=== PATIENT | female | born 1985 | race Caucasian/White ===

== ENCOUNTER 2020-08-12 17:51 | Outpatient (REF) | payer OTHER, SELFPAY | END 2020-08-12 17:52 | disposition home or self-care (01) | LOC: HO.LAB 17:51 | PROVIDERS: PCP Nurse Practitioner Family; Visit Provider Internal Medicine | DX: Z20.828 Contact with and (suspected) exposure to other viral communicable diseases (principal) | CPT/HCPCS: 87635 ==

== ENCOUNTER 2020-10-14 09:23 | Outpatient (REF) | payer OTHER, SELFPAY ==
[2020-10-16 14:57] LABS: C. trachomatis RNA TMA NOT DETECTED (NOT DETECTED); N. gonorrhoeae RNA TMA NOT DETECTED (NOT DETECTED)
[2020-10-21 20:12] LABS: HPV 16 RNA NOT DETECTED (NOT DETECTED); HPV mRNA E6/E7 rflx Detected (Not Detected)
== END 2020-10-14 09:24 | disposition home or self-care (01) ==
LOC: HO.LAB 09:23
PROVIDERS: PCP Nurse Practitioner Family; Visit Provider Obstetrics & Gynecology
DX: Z12.4 Encounter for screening for malignant neoplasm of cervix (principal)
CPT/HCPCS: 87491; 87591; 87624; 87625; 88141; 88142

== ENCOUNTER → 2020-11-12 08:34 | Outpatient (BNVA) | payer OTHER, SELFPAY | PROVIDERS: Visit Provider Advanced Practice Midwife | DX: Z30.433 Encounter for removal and reinsertion of intrauterine contraceptive device (principal) | CPT/HCPCS: 58300; 58301; 81025 ==

== ENCOUNTER 2021-01-03 21:21 | Emergency (ER) | payer OTHER, SELFPAY ==
[2021-01-03 21:24] VITALS: BP 151/87; PULSE 123; RESP 18; TEMP 36.8; O2SAT 100; BMI 27.0
[2021-01-03 22:18] VITALS: BP 124/75; PULSE 120; RESP 16; TEMP 38.7; O2SAT 98
[2021-01-03] MEDS: Ibuprofen 600 MG TABLET PO (22:32)
[2021-01-03] MEDS: Acetaminophen 325 MG TABLET 975 MG PO (22:44)
[2021-01-03 23:08] LABS: Glucose Urine UA NEG (NEG); Leukocyte Esterase Urine NEG (NEG); Nitrite Urine NEG (NEG); PH 8.5 (5.0-8.0); Specific Gravity - Urine 1.015 (1.005-1.025); Urine Blood 1+ (NEG); Urine Ketones NEG (NEG); Urine Pregnancy NEGATIVE (NEGATIVE); Urine Protein NEG (NEG-TRACE)
[2021-01-03 23:09] LABS: UPreg QC Valid YES
[2021-01-03 23:10] LABS: Appearance Urine CLEAR; Color Urine YELLOW
--- NOTE | 2021-01-03 23:23 | ED_ITS ---
HPI - Dental/Oral General Chief complaint: Dental/Oral Stated complaint: Dental pain Time Seen by Provider: 01/03/21 22:39 Source: patient Mode of arrival: ambulatory History of Present Illness HPI Narrative: This is a 35-year-old female who underwent a root canal on Sunday of last week and then developed pain and increased swelling of her gum line on Sunday and was started on amoxicillin by the dentist. She called in this morning telling them that it was not getting any better and they told her take an additional dose of amoxicillin and that they would see her in the morning. Patient presents this evening with fevers, chills and worsening pain. Related Data Previous Rx's Medication Instructions Recorded sertraline 100 mg tablet 200 mg PO DAILY #180 tab 09/21/20 bupropion HCl 150 mg tablet,12 hr 150 mg PO BID #180 tab 10/21/20 sustained-release buspirone 15 mg tablet 15 mg PO BID #180 tab 10/21/20 Allergies Allergy/AdvReac Type Severity Reaction Status Date / Time No Known Allergies Allergy Verified 01/03/21 21:24 Review of Systems Review of Systems: Pertinent positives and negatives as stated in HPI 10 point review systems is otherwise negative. [facility] Past Medical History Source: nursing notes reviewed Medical History Anxiety Depression History of back problems History of COVID-19 History of kidney stones History of UTI Migraine Mild scoliosis Surgical History No pertinent past surgical history Family History Family History Father HTN (hypertension) Mother No problems noted. Brother No problems noted. Brother No problems noted. Son No problems noted. Son No problems noted. Sister No problems noted. Daughter No problems noted. Social History Social History Alcohol intake: never Smoking Status: Current every day smoker Advance Directives: No Advance Directives Information Provided: No Sexual orientation: Straight/Heterosexual Gender identity: female Physical Exam Vital Signs: Vital Signs: Last Vital Signs Temp 99.7 F 01/03/21 23:26 Pulse 104 H 01/03/21 23:26 Resp 14 01/03/21 23:26 BP 121/68 01/03/21 23:26 Pulse Ox 97 01/03/21 23:26 Body Mass Index 27.0 VITAL SIGNS: Reviewed. GENERAL: Well developed, well nourished, in no acute distress. HEAD: Normocephalic/atraumatic, EYES: PERRLA, EOMI intact without pain, no nystagmus/pallor/icterus noted EARS: Ext canals without abnormality, TMs non-bulging and non-erythematous NOSE: Nares patent bilateral OROPHARYNX: Swelling left upper gum line noted with dental loreto and posterior pharynx with exudates noted NECK: Supple, no adenopathy LUNGS: Normal breath sounds. No adventitious sounds or accessory muscle use. SpO2<100> CARDIOVASCULAR: Regular rate and rhythm without noted murmurs ABDOMEN: Soft, non-tender, non-distended with bowel sounds. NEUROLOGIC: Alert and oriented x 4. Course Course Course Narrative: This is a 35-year-old female with history and clinical presentation consistent with inadequate coverage with the amoxicillin and will be switched over to Augmentin as well as having received antipyretics Tylenol/Motrin and will also receive a single dose of Diflucan for reported yeast infection. Rapid strep reviewed and negative. Patient will be discharged in stable condition for follow-up with her dentist in the morning. MDM - Dental/Oral Lab Data Labs: Lab Results 01/03/21 01/03/21 Range/Units 22:56 22:56 Urine Color YELLOW Urine Appearance CLEAR Urine pH 8.5 H (5.0-8.0) Ur Specific [place] 1.015 (1.005-1.025) Urine Protein NEG (NEG-TRACE) MG/DL Urine Glucose (UA) NEG (NEG) MG/DL Urine Ketones NEG (NEG) MG/DL Urine Blood 1+ H (NEG) Urine Nitrite NEG (NEG) Ur Leukocyte Esterase NEG (NEG) Urine RBC 1-4 (0) /HPF Urine WBC 0-2 (0-4) /HPF Ur Squamous Epith Cells 1+ /LPF Urine Bacteria TRACE /LPF Urine Yeast TRACE /HPF Urine Test NEGATIVE (NEGATIVE) Discharge Plan Discharge Clinical Impression: Dental infection Patient Disposition: Home, Self-Care Additional Instructions: FOR PAIN 1. Tylenol 1000 mg, orally, every 6 hours as needed for pain control or temperatures greater than 100.4. Do not exceed 4000 mg within 24 hours. 2. Ibuprofen 400 mg, orally with milk or food, every 6 hours as needed for pain control or temperatures greater than 100.4. You may take this medication with the Tylenol as well. 3. Recommend utilizing ice and/or [id number] Anbesol for additional symptom relief. 4. Follow-up with your dentist in the morning as scheduled. Do not hesitate to return to the emergency department should you develop any acute worsening of your symptoms to include difficulty breathing, difficulty swallowing. Prescriptions: No Action sertraline 100 mg tablet 200 mg PO DAILY Qty: 180 RF: 0 buspirone 15 mg tablet 15 mg PO BID Qty: 180 RF: 0 bupropion HCl 150 mg tablet sustained-release 12 hr 150 mg PO BID Qty: 180 RF: 0 Referrals: Alfonso Mcmahon, IT SECURITY CONSULTANT-BC [Primary Care Provider] - 2 days (Re-evaluation outpatient management of dental infection.)
[2021-01-03 23:26] VITALS: BP 121/68; PULSE 104; RESP 14; TEMP 37.6; O2SAT 97
[2021-01-03 23:27] LABS: Bacteria Urine TRACE /LPF; Squamous Epithelial Cell Urine 1+ /LPF; WBC Urine 0-2 /HPF (0-4)
[2021-01-04] MEDS: Amoxicillin/Potassium Clav 875 MG TABLET PO (00:01)
[2021-01-04] MEDS: Fluconazole 150 MG TABLET PO (00:01)
== END 2021-01-04 00:45 | disposition home or self-care (01) ==
PROVIDERS: Emergency Provider Student in an Organized Health Care Education/Training Program; PCP Nurse Practitioner Family
DX: K04.7 Periapical abscess without sinus (principal); F17.200 Nicotine dependence, unspecified, uncomplicated; Z86.16 Personal history of COVID-19; Z87.442 Personal history of urinary calculi; Z87.440 Personal history of urinary (tract) infections; F41.9 Anxiety disorder, unspecified; Z79.899 Other long term (current) drug therapy
CPT/HCPCS: 81001; 81025; 87071; 87880; 99283; 99284

== ENCOUNTER 2021-05-14 14:30 | Emergency (ER) | payer OTHER, SELFPAY ==
[2021-05-14 14:33] VITALS: BP 112/65; BP 130/80; PULSE 77; PULSE 90; RESP 18; TEMP 36.6; O2SAT 97; BMI 27.0
--- NOTE | 2021-05-14 14:58 | ED_ITS ---
HPI - Syncope General Chief Complaint: Syncope Stated Complaint: SYNCOPE Time Seen by Provider: 05/14/21 14:57 Source: patient Mode of arrival: ambulatory Limitations: no limitations History of Present Illness HPI narrative: Patient was standing up talking when she passed out. patient could hear people around her but felt like she was in a dream. Patient felt nauseated had not eaten anything all day. Woke up late. MD complaint: loss of consciousness and felt faint -: second(s) Prodromal symptoms: lightheaded and nausea/vomiting Witnessed: Yes - by Bystander Injuries sustained associated with event: none Current symptoms: none Related Data Previous Rx's Medication Instructions Recorded amoxicillin 875 mg-potassium 1 tab PO BID #20 tab 02/18/21 clavulanate 125 mg tablet buspirone 15 mg tablet 15 mg PO BID #180 tab 02/21/21 omeprazole 20 mg capsule,delayed 20 mg PO DAILY #30 cap 02/26/21 release sertraline 100 mg tablet 100 mg PO DAILY 30 Days #30 tab 05/04/21 Allergies Allergy/AdvReac Type Severity Reaction Status Date / Time No Known Allergies Allergy Verified 02/26/21 10:57 Review of Systems 2 Constitutional: Constitutional: Reports no additional constitutional complaints Eyes: Eyes: Reports no additional eye complaints ENT: Denies dizziness Cardiovascular: Cardiovascular: Reports no additional cardiovascular complaints Respiratory: Respiratory: Reports as per HPI Gastrointestinal: Gastrointestinal: Reports no additional gastrointestinal complaints Genitourinary: Genitourinary: Reports no additional female genitourinary complaints Musculoskeletal: Musculoskeletal: Reports no additional musculoskeletal complaints Integumentary/Breasts: Skin/Breast: Denies rash Neurologic: Reports system reviewed and no additional complaints, except as documented, Denies dizziness and Denies Sensory deficit (Neuro) Psychiatric: Psychiatric: Denies anxiety [facility] Past Medical History Medical History Anxiety Depression History of back problems History of COVID-19 History of kidney stones History of UTI Migraine Mild scoliosis Surgical History No pertinent past surgical history Family History Family History Father HTN (hypertension) Mother No problems noted. Brother No problems noted. Brother No problems noted. Son No problems noted. Son No problems noted. Sister No problems noted. Daughter No problems noted. Social History Social History Alcohol intake: never Advance Directives: No Advance Directives Information Provided: Yes Patient : No Sexual orientation: Straight/Heterosexual Gender identity: female Physical Exam Vital Signs: Vital Signs: Last Vital Signs Temp 98 F 05/14/21 14:33 Pulse 79 05/14/21 15:30 Resp 18 05/14/21 14:33 BP 123/80 05/14/21 15:30 Pulse Ox 97 05/14/21 14:33 Body Mass Index 27.0 Const: General: healthy appearing Nutritional Appearance: average body habitus Orientation/consciousness: oriented to person and patient oriented x3 Limitations: no limitations HENMT: Head: Yes normal to inspection Ears: external ears normal General nose exam: Normal external nose present Mouth: Normal oral and palatal mucosa present and oropharynx normal Throat: Yes posterior oropharynx normal Eyes: General: appearance normal, both eyes and all related structures Neck: Other: supple Neck: Yes normal visual inspection Chest: Chest palpation & inspection: normal inspection of the chest Resp: Auscultation: clear to auscultation bilaterally Cardio: Jugular venous distension: no JVD Rate: regular rate Rhythm: regular rhythm Heart sounds: S1 normal heart sound present and S2 normal heart sound present GI: Inspection: Yes normal to inspection Palpation (GI): Soft to palpation, nontender and No hepatosplenomegaly present Auscultation: normal bowel sounds : General: Yes no CVA tenderness Back/Spine/Pelvis: Back: no CVA tenderness Skin: General skin exam: no rashes or lesions noted Neuro: General: oriented to person and patient oriented x3 Cranial nerves: Yes CN's II-XII intact bilaterally Motor exam (neuro): 5/5 motor strength present throughout Sensory Exam: No Sensory deficit (Neuro) Extrem: General: Yes normal to inspection Psych: Appearance: grossly normal Course Reevaluation(s) Reevaluation #1: patient looks well, labs normal except for leukocytosis, no fever, no source of infection. EKG normal, no explanation for syncope although possible hypoglycemia and vagal are still a possibility Time: 16:46 MDM - Syncope Lab Data Result diagrams: 05/14/21 15:24 07/24/21 15:24 Labs: Lab Results 05/14/21 05/14/21 05/14/21 Range/Units 15:24 15:24 16:30 WBC 17.0 H (4.8-10.8) X10*3/uL RBC 4.12 L (4.20-5.50) X10*6/uL Hgb 13.2 (12.0-16.0) g/dl Hct 38.7 (37-47) % MCV 93.9 (80-98) fL MCH 32.0 (27.0-33.0) pg MCHC 34.1 (31.0-35.0) g/dl RDW 11.5 (11.0-16.0) % Plt Count 340 (160-400) X10*3/uL MPV 9.0 L (9.4-12.3) fL Immature Gran % (Auto) 0.8 H (0.0-0.4) % Neut % (Auto) 83.8 H (45-73) % Lymph % (Auto) 9.5 L (20-40) % [place] % (Auto) 4.5 (2-11) % Eos % (Auto) 1.0 (0-4) % Baso % (Auto) 0.4 (0-2) % Lymph # (Auto) 1.6 (1.2-4.9) X10*3/uL [place] # (Auto) 0.8 (0.1-1.2) X10*3/uL Eos # (Auto) 0.2 (0.0-0.4) X10*3/uL Baso # (Auto) 0.1 (0.0-0.2) X10*3/uL Abs Immat Gran (auto) 0.13 H (0.00-0.03) X10*3/uL Absolute Neuts (auto) 14.2 H (2.0-8.3) X10*3/uL Absolute Nucleated RBC 0.000 (0.0-0.012) X10*3/uL Nucleated RBC % (auto) 0.0 (0.0-0.2) /100WBC Sodium 140 (135-145) mmol/L Potassium 3.9 (3.3-5.1) mmol/L Chloride 106 (96-108) mmol/L Carbon Dioxide 24 (22-29) mmol/L Anion Gap 14 (12-20) BUN 11 (9-16) mg/dL Creatinine 0.87 (0.5-1.4) mg/dL Estim Creat Clear Calc 77.0 Estimated GFR > 60 Random Glucose 95 (60-115) mg/dL Calcium 9.1 (8.4-10.2) mg/dL Urine Color YELLOW Urine Appearance CLEAR Urine pH 6.5 (5.0-8.0) Ur Specific [place] 1.010 (1.005-1.025) Urine Protein NEG (NEG-TRACE) MG/DL Urine Glucose (UA) NEG (NEG) MG/DL Urine Ketones NEG (NEG) MG/DL Urine Blood NEG (NEG) Urine Nitrite NEG (NEG) Ur Leukocyte Esterase NEG (NEG) Urine Test (NEGATIVE) 05/14/21 Range/Units 16:30 WBC (4.8-10.8) X10*3/uL RBC (4.20-5.50) X10*6/uL Hgb (12.0-16.0) g/dl Hct (37-47) % MCV (80-98) fL MCH (27.0-33.0) pg MCHC (31.0-35.0) g/dl RDW (11.0-16.0) % Plt Count (160-400) X10*3/uL MPV (9.4-12.3) fL Immature Gran % (Auto) (0.0-0.4) % Neut % (Auto) (45-73) % Lymph % (Auto) (20-40) % [place] % (Auto) (2-11) % Eos % (Auto) (0-4) % Baso % (Auto) (0-2) % Lymph # (Auto) (1.2-4.9) X10*3/uL [place] # (Auto) (0.1-1.2) X10*3/uL Eos # (Auto) (0.0-0.4) X10*3/uL Baso # (Auto) (0.0-0.2) X10*3/uL Abs Immat Gran (auto) (0.00-0.03) X10*3/uL Absolute Neuts (auto) (2.0-8.3) X10*3/uL Absolute Nucleated RBC (0.0-0.012) X10*3/uL Nucleated RBC % (auto) (0.0-0.2) /100WBC Sodium (135-145) mmol/L Potassium (3.3-5.1) mmol/L Chloride (96-108) mmol/L Carbon Dioxide (22-29) mmol/L Anion Gap (12-20) BUN (9-16) mg/dL Creatinine (0.5-1.4) mg/dL Estim Creat Clear Calc Estimated GFR Random Glucose (60-115) mg/dL Calcium (8.4-10.2) mg/dL Urine Color Urine Appearance Urine pH (5.0-8.0) Ur Specific [place] (1.005-1.025) Urine Protein (NEG-TRACE) MG/DL Urine Glucose (UA) (NEG) MG/DL Urine Ketones (NEG) MG/DL Urine Blood (NEG) Urine Nitrite (NEG) Ur Leukocyte Esterase (NEG) Urine Test NEGATIVE (NEGATIVE) Discharge Plan Discharge Clinical Impression: Vasovagal syncope Syncope Qualifiers: Syncope type: unspecified Qualified Code(s): R55 - Syncope and collapse Patient Disposition: Home, Self-Care Instructions: Syncope (ED) Prescriptions: No Action buspirone 15 mg tablet 15 mg PO BID Qty: 180 RF: 0 sertraline 100 mg tablet 100 mg PO DAILY 30 Days Qty: 30 RF: 0 amoxicillin-pot clavulanate [Augmentin] 875-125 mg tablet 1 tab PO BID Qty: 20 RF: 0 omeprazole 20 mg capsule,delayed release(DR/EC) 20 mg PO DAILY Qty: 30 RF: 1 Referrals: Alfonso Mcmahon, PURCHASING SPECIALIST-BC [Primary Care Provider] - 5 days
--- NOTE | 2021-05-14 15:02 | ECG_ITS ---
Test Reason : SYNCOPE Blood Pressure : / mmHG Vent. Rate : 079 BPM Atrial Rate : 079 BPM P-R Int : 138 ms QRS Dur : 096 ms QT Int : 414 ms P-R-T Axes : 065 065 020 degrees QTc Int : 474 ms Normal sinus rhythm Cannot rule out Anterior infarct (cited on or before 05-MAY-2015) Abnormal ECG When compared with ECG of 05-MAY-2015 23:47, Questionable change in initial forces of Anterior leads Nonspecific T wave abnormality now evident in Inferior leads Referred By: Anirudh Billy Electronically Signed By:MYLES GORDON MD
[2021-05-14 15:27] VITALS: BP 111/73; PULSE 88
[2021-05-14 15:29] VITALS: BP 119/81; PULSE 77
[2021-05-14 15:30] VITALS: BP 123/80; PULSE 79
[2021-05-14 15:36] LABS: MANUAL DIFF FLAG NO
[2021-05-14 15:37] LABS: Basophils Absolute Auto 0.1 X10*3/uL (0.0-0.2); Basophils Percent Auto 0.4 % (0-2); Eosinophils Absolute Auto 0.2 X10*3/uL (0.0-0.4); Hematocrit 38.7 % (37-47); Hemoglobin 13.2 g/dl (12.0-16.0); Imm Gran Abs Auto 0.13 X10*3/uL (0.00-0.03); Imm Gran Pct Auto 0.8 % (0.0-0.4); Lymphocytes Absolute Auto 1.6 X10*3/uL (1.2-4.9); Lymphocytes Percent Auto 9.5 % (20-40); Mean Corpuscular HGB Conc 34.1 g/dl (31.0-35.0); Mean Corpuscular Volume 93.9 fL (80-98); Monocytes Absolute Auto 0.8 X10*3/uL (0.1-1.2); Monocytes Percent Auto 4.5 % (2-11); Neutrophils Absolute Auto 14.2 X10*3/uL (2.0-8.3); Neutrophils Percent Auto 83.8 % (45-73); Platelet Count 340 X10*3/uL (160-400); Red Blood Count 4.12 X10*6/uL (4.20-5.50); Red Cell Distribution Width 11.5 % (11.0-16.0)
[2021-05-14 16:04] LABS: Anion Gap 14 (12-20); Blood Urea Nitrogen 11 mg/dL (9-16); Calcium 9.1 mg/dL (8.4-10.2); Carbon Dioxide 24 mmol/L (22-29); Chloride 106 mmol/L (96-108); Estimated Glomerular Filt Rate > 60; Glucose Random 95 mg/dL (60-115); Potassium 3.9 mmol/L (3.3-5.1); Sodium 140 mmol/L (135-145)
[2021-05-14 16:38] LABS: Glucose Urine UA NEG (NEG); Leukocyte Esterase Urine NEG (NEG); Nitrite Urine NEG (NEG); PH 6.5 (5.0-8.0); Urine Blood NEG (NEG); Urine Ketones NEG (NEG); Urine Protein NEG (NEG-TRACE)
[2021-05-14 16:41] LABS: Appearance Urine CLEAR; Color Urine YELLOW
[2021-05-14 16:42] LABS: UPreg QC Valid YES; Urine Pregnancy NEGATIVE (NEGATIVE)
== END 2021-05-14 16:53 | disposition home or self-care (01) ==
PROVIDERS: Emergency Provider Emergency Medicine; PCP Nurse Practitioner Family
DX: R55 Syncope and collapse (principal)
CPT/HCPCS: 36415; 80048; 81003; 81025; 85025; 93005; 99283; 99284

== ENCOUNTER 2021-06-14 15:21 | Outpatient (REF) | payer OTHER, SELFPAY ==
--- NOTE | ~2021-06-14 | US_ITS ---
EXAMINATION: US THYROID CLINICAL INFORMATION: Iodine-deficiency related diffuse (endemic) goiter. COMPARISON: None TECHNIQUE: Linear transducer grayscale and color Doppler examination with attention to the region of the thyroid. FINDINGS: SIZE: Measurements of the thyroid lobes and nodules are given in sagittal, anteroposterior and transverse dimensions respectively. Right Thyroid Lobe: 6.0 x 1.8 x 1.8 cm, volume 10.2 mL. Parenchyma: The gland echotexture is homogeneous. Thyroid vascularity is increased. Left Thyroid Lobe: 4.7 x 1.5 x 1.9 cm, volume 7.0 mL. Parenchyma: The gland echotexture is homogeneous. Thyroid vascularity is increased. Isthmus: 0.2 cm in maximum AP dimension. Estimated total number of nodules greater than or equal to 1 cm: 1. [employer] nodules are described as follows: 1. Location: Left superior. Size: 1.12 x 0.64 x 0.62 cm, volume 0.23 mL. Nodule characteristics: Composition: Solid (2). Echogenicity: Hypoechoic (2). Shape: Taller than wide (3). Margins: Ill-defined (0). Echogenic Foci: Punctate echogenic foci (3). ACR TI-RADS total points: 10 ACR TI-RADS category: 5 2. Location: Right superior. Size: 0.36 x 0.20 x 0.26 cm, volume 0.01 mL. Nodule characteristics: Composition: Spongiform (0). Echogenicity: Anechoic (0). Shape: Not taller than wide (0). Margins: Smooth (0). Echogenic Foci: None (0). ACR TI-RADS total points: 0 ACR TI-RADS category: 1 3. Location: Right inferior. Size: 0.24 x 0.19 x 0.19 cm, volume 0.004 mL. Nodule characteristics: Composition: Cystic(0). ACR TI-RADS total points: 0 ACR TI-RADS category: 1 NODES: There are 2 abnormal appearing lymph nodes in the left neck, level 2. These measure 1.8 x 0.6 x 0.9 cm and 1.5 x 0.6 x 1.1 cm. These demonstrate abnormal ultrasound morphology with hyperechoic areas questionable for calcification and abnormal cortical flow US/US thyroid IMPRESSION: 1.2 x 0.6 x 0.6 cm highly suspicious-appearing nodule in the left lobe and abnormal appearing left cervical level 2 lymph nodes. Fine-needle aspiration of left thyroid nodule recommended. ACR TI-RADS RECOMMENDATION REFERENCE: Ultrasound-guided fine-needle aspiration, followup ultrasound, no further follow up. * TR1 (0 point) and TR 2 (2 points): No FNA or follow up * TR3 (3 points): FNA if more than or equal to 2.5 cm in maximum dimension, followup ultrasound in 1, 3 and 5 years if 1.5 to 2.4 cm in maximum dimension. * TR4 (4-6 points): FNA if more than or equal to 1.5 cm in maximum dimension, followup ultrasound in 1, 2, 3 and 5 years if 1 to 1.4 cm in maximum dimension. * TR5 (more than or equal to 7 points): FNA if more than or equal to 1 cm in maximum dimension, followup ultrasound every year for 5 years if 0.5 to 0.9 cm in maximum dimension. * TR3, TR4 or TR5 nodules that are below the size threshold for follow up receive no follow up.
[2021-06-14 16:44] LABS: MANUAL DIFF FLAG NO
[2021-06-14 16:54] LABS: Basophils Absolute Auto 0.1 X10*3/uL (0.0-0.2); Basophils Percent Auto 0.6 % (0-2); Eosinophils Absolute Auto 0.3 X10*3/uL (0.0-0.4); Eosinophils Percent Auto 3.5 % (0-4); Hematocrit 40.5 % (37-47); Hemoglobin 13.4 g/dl (12.0-16.0); Imm Gran Abs Auto 0.05 X10*3/uL (0.00-0.03); Imm Gran Pct Auto 0.5 % (0.0-0.4); Lymphocytes Absolute Auto 2.9 X10*3/uL (1.2-4.9); Lymphocytes Percent Auto 30.1 % (20-40); Mean Corpuscular HGB Conc 33.1 g/dl (31.0-35.0); Mean Corpuscular Hemoglobin 31.8 pg (27.0-33.0); Mean Platelet Volume 9.2 fL (9.4-12.3); Monocytes Absolute Auto 0.8 X10*3/uL (0.1-1.2); Monocytes Percent Auto 7.9 % (2-11); Neutrophils Absolute Auto 5.5 X10*3/uL (2.0-8.3); Neutrophils Percent Auto 57.4 % (45-73); Platelet Count 352 X10*3/uL (160-400); Red Blood Count 4.22 X10*6/uL (4.20-5.50); Red Cell Distribution Width 11.9 % (11.0-16.0); White Blood Count 9.7 X10*3/uL (4.8-10.8)
[2021-06-14 17:41] LABS: TSH reflex Free T4 2.02 uIU/mL (0.32-4.0)
== END 2021-06-14 15:22 | disposition home or self-care (01) ==
LOC: HO.HMGCX 15:21
PROVIDERS: PCP Nurse Practitioner Family; Visit Provider Internal Medicine
DX: E01.0 Iodine-deficiency related diffuse (endemic) goiter (principal); D72.829 Elevated white blood cell count, unspecified; Z83.49 Family history of other endocrine, nutritional and metabolic diseases
CPT/HCPCS: 36415; 76536; 84443; 85025

== ENCOUNTER 2021-06-29 08:47 | Outpatient (REF) | payer OTHER, SELFPAY ==
--- NOTE | ~2021-06-29 | US_ITS ---
EXAMINATION: ULTRASOUND-GUIDED LEFT CERVICAL LYMPH NODE IN LEFT THYROID NODULE FINE-NEEDLE ASPIRATION CLINICAL INFORMATION: Left thyroid nodule and abnormal appearing lymph node COMPARISON: Previous thyroid ultrasound 06/14/2021 TECHNIQUE: Left cervical lymph node and left thyroid nodule fine-needle aspiration procedure and risks and benefits including bleeding and infection were discussed with the patient and informed consent was obtained. The left neck was prepped and draped in the usual sterile fashion. Skin and soft tissues were anesthetized with 1% lidocaine plain. Using a 25-gauge needle, 2 25-gauge FNA aspirates from the left submandibular/zone 2 cervical lymph node were obtained. Subsequently, 2 25-gauge FNA aspirates from the left thyroid nodule were obtained. FINDINGS: There is a 1.1 x 0.9 x 0.7 cm hypoechoic calcified nodule with irregular margins in the superior left lobe that was targeted for fine-needle aspiration. There is a 0.9 cm abnormal appearing left zone 2/submandibular lymph node with calcifications that was targeted for fine-needle aspiration. There is and adjacent US/US guided fine needle asp IMPRESSION: Ultrasound-guided fine needle aspiration of left thyroid nodule and cervical lymph node.
--- NOTE | ~2021-06-29 | US_ITS ---
EXAMINATION: ULTRASOUND-GUIDED LEFT CERVICAL LYMPH NODE IN LEFT THYROID NODULE FINE-NEEDLE ASPIRATION CLINICAL INFORMATION: Left thyroid nodule and abnormal appearing lymph node COMPARISON: Previous thyroid ultrasound 06/14/2021 TECHNIQUE: Left cervical lymph node and left thyroid nodule fine-needle aspiration procedure and risks and benefits including bleeding and infection were discussed with the patient and informed consent was obtained. The left neck was prepped and draped in the usual sterile fashion. Skin and soft tissues were anesthetized with 1% lidocaine plain. Using a 25-gauge needle, 2 25-gauge FNA aspirates from the left submandibular/zone 2 cervical lymph node were obtained. Subsequently, 2 25-gauge FNA aspirates from the left thyroid nodule were obtained. FINDINGS: There is a 1.1 x 0.9 x 0.7 cm hypoechoic calcified nodule with irregular margins in the superior left lobe that was targeted for fine-needle aspiration. There is a 0.9 cm abnormal appearing left zone 2/submandibular lymph node with calcifications that was targeted for fine-needle aspiration. There is and adjacent US/US guided fine needle asp add IMPRESSION: Ultrasound-guided fine needle aspiration of left thyroid nodule and cervical lymph node.
[2021-06-29] MEDS: Lidocaine HCl 1 % MPF 5 ML VIAL SUBCUT (10:50)
== END 2021-06-29 08:48 | disposition home or self-care (01) ==
LOC: HO.US 08:47
PROVIDERS: PCP Internal Medicine; Visit Provider Internal Medicine
DX: E04.1 Nontoxic single thyroid nodule (principal)
CPT/HCPCS: 10005; 10006; 88172; 88173; 88177; 88305

== ENCOUNTER 2022-01-10 11:04 | Outpatient (REF) | payer OTHER, SELFPAY ==
[2022-01-14 23:46] LABS: HPV 16 RNA NOT DETECTED (NOT DETECTED); HPV mRNA E6/E7 rflx Detected (Not Detected)
== END 2022-01-10 11:05 | disposition home or self-care (01) ==
LOC: HO.LAB 11:04
PROVIDERS: PCP Nurse Practitioner Family; Visit Provider Obstetrics & Gynecology
DX: Z01.419 Encounter for gynecological examination (general) (routine) without abnormal findings (principal); Z11.51 Encounter for screening for human papillomavirus (HPV)
CPT/HCPCS: 87624; 87625; 88142

== ENCOUNTER 2022-02-20 14:12 | Emergency (ER) | payer OTHER, SELFPAY ==
--- NOTE | ~2022-02-20 | CT_ITS ---
EXAMINATION: CT ABDOMEN AND PELVIS WITHOUT CONTRAST CLINICAL INFORMATION: Lower abdominal pain, history of kidney stones COMPARISON: 05/08/2018 TECHNIQUE: Multidetector volumetric imaging was performed from the superior aspect of the liver through the pubic symphysis. Sagittal and coronal reformatted images were obtained on the technologist's workstation. This CT examination was performed using dose optimization techniques as appropriate, variously including the following: *Automated exposure control *Adjustment of mA and/or kV according to patient size (this includes techniques or standardized protocols for targeted exams where dose is matched to indication/reason for exam; i.e. extremities or head) *Use of iterative reconstruction technique DLP: 532 mGy-cm FINDINGS: LUNG BASES: The visualized lung bases are unremarkable. LIVER, GALLBLADDER, AND BILIARY TREE: The liver is normal in size, shape, and attenuation. No focal hepatic lesion or biliary ductal dilatation is present. The gallbladder is unremarkable with no evidence of radiopaque gallstones, gallbladder wall thickening, or obvious pericholecystic inflammatory changes. PANCREAS: Unremarkable. SPLEEN: Unremarkable. ADRENAL GLANDS: Unremarkable. KIDNEYS AND URETERS: No hydronephrosis or obstructing calculus identified bilaterally. A 2 mm calculus is noted in the lower left kidney. BLADDER: Unremarkable. GASTROINTESTINAL TRACT: The small and large bowel are unremarkable. The appendix is unremarkable. No free air is seen. ABDOMINAL WALL: No significant hernia is appreciated. LYMPH NODES: Normal. VASCULAR: Unremarkable. PELVIC VISCERA: An IUD is present in the uterus. Trace free fluid is suspected. OSSEOUS STRUCTURES: Unremarkable. CT/CT abdomen pelvis wo con IMPRESSION: 1. No hydronephrosis or obstructing calculus is identified. Tiny left lower pole renal calculus. 2. Trace nonspecific pelvic free fluid, which may be physiologic. Fleischner guidelines were followed.
[2022-02-20 15:03] VITALS: BP 125/75; PULSE 90; RESP 20; TEMP 36.9; O2SAT 98; BMI 31.7
[2022-02-20 15:38] LABS: Appearance Urine HAZY; Color Urine DK YELLOW; Glucose Urine UA NEG (NEG); Leukocyte Esterase Urine TRACE (NEG); Nitrite Urine NEG (NEG); Specific Gravity - Urine 1.025 (1.005-1.025); UACC Culture Trigger NO; Urine Blood 2+ (NEG); Urine Ketones 5 MG/DL (NEG); Urine Protein 1+ MG/DL (NEG-TRACE)
[2022-02-20 15:58] LABS: Bacteria Urine 2+ /LPF; Squamous Epithelial Cell Urine 1+ /LPF; UACC CULT YES
[2022-02-20 15:59] LABS: Mucus Urine TRACE /LPF; Renal Epithelial Cells Urine 1+ /LPF
--- NOTE | 2022-02-20 23:22 | ED.GENADULT ---
HPI - General Adult General Chief complaint: General Medical Stated complaint: sharp pain in private area Time Seen by Provider: 02/20/22 16:30 Source: patient Mode of arrival: ambulatory History of Present Illness HPI narrative: 36-year-old female with history of thyroidectomy and renal colic presents with onset of chills and nausea Sunday evening and felt she may be passing some stones but then was noted to have foul urine and went to urgent care where she was started on Macrobid. Patient states she has been taking the medication now for 2 days and that has not helped, she denies vaginal discharge and states she still has her appendix. She otherwise denies being on her menstrual. At this time. Related Data Home Medications Medication Instructions Recorded Confirmed levonorgestrel 20 mcg/24 hours (7 INTRAUTERINE 01/10/22 yrs) 52 mg intrauterine device (Mirena) levothyroxine 112 mcg tablet 112 mcg PO DAILY 01/10/22 Previous Rx's Medication Instructions Recorded buspirone 15 mg tablet 15 mg PO BID #180 tab 12/30/21 sertraline 100 mg tablet 200 mg PO DAILY 90 Days #180 tab 02/19/22 ciprofloxacin HCl 250 mg tablet 250 mg PO Q12H 3 Days #6 tab 02/21/22 ketorolac 10 mg tablet 10 mg PO Q6H PRN 5 Days #20 tab 02/21/22 phenazopyridine 200 mg tablet 200 mg PO TID PRN #6 tab 02/21/22 (Pyridium) Allergies Allergy/AdvReac Type Severity Reaction Status Date / Time No Known Allergies Allergy Verified 01/10/22 11:16 Review of Systems Review of Systems: Pertinent positives and negatives as stated in HPI 10 point review of systems is otherwise negative. [facility] Past Medical History Source: nursing notes reviewed Medical History Anxiety Depression History of back problems History of COVID-19 History of kidney stones History of UTI Migraine Mild scoliosis Thyroid ca Surgical History Hx of thyroidectomy No pertinent past surgical history Family History Family History Father HTN (hypertension) Mother No problems noted. Brother No problems noted. Brother No problems noted. Son No problems noted. Son No problems noted. Sister No problems noted. Daughter No problems noted. Social History Social History Housing: House Alcohol intake: never Patient Tobacco Use Status: Former Tobacco user Tobacco use type: Cigarette Cigarette Packs Per Day: 0.5 Years Smoked: 18 years Advance Directives: Yes Advance Directives Information Provided: No Advance Directives on File: No Patient : No Current occupational status: employed Sexual orientation: Straight/Heterosexual Gender identity: Female Physical Exam ED Vital Signs: Vital Signs - 24 hr 02/20/22 15:03 02/21/22 00:06 Temperature 98.5 F Pulse Rate 90 97 Respiratory Rate 20 19 Blood Pressure 125/75 112/68 Pulse Oximetry 98 97 BMI result Body Mass Index 31.7 VITAL SIGNS: Reviewed. GENERAL: Well developed, well nourished, in no acute distress. HEAD: Normocephalic/atraumatic EYES: PERRLA, EOMI EARS: Ext canals without abnormality OROPHARYNX: no oral lesions noted, posterior pharynx clear LUNGS: Normal breath sounds. No adventitious sounds or accessory muscle use. SpO2<98> CARDIOVASCULAR: Regular rate and rhythm without noted murmurs ABDOMEN: Soft, lower abdominal discomfort on palpation without rebound, non-distended with bowel sounds. MUSCULOSKELETAL: No tenderness, deformities, or effusions noted on gross inspection. EXTREMITIES: No cyanosis, clubbing or edema. SKIN: Inspection of the skin reveals no rashes NEUROLOGIC: Alert and oriented x 4. Strength and sensation to light touch were grossly intact x 4. Course Course Course Narrative: 36-year-old female with history and clinical presentation suggestive of possible renal colic, appendicitis but doubt PID/STI and also possible that antibiotic is not covering the UTI. However, on review of patient's urinalysis she is noted to have hematuria with presence of wbc's. Review of all investigations otherwise negative for acute findings and suspect that the Macrobid is not covering patient's source UTI. She will be started on a new antibiotic as well as being provided with pyridium and discharged home in stable condition. Medical Decision Making Lab Data Labs: Lab Results 02/20/22 Range/Units 15:26 Urine Color DK YELLOW Urine Appearance HAZY Urine pH 6.0 (5.0-8.0) Ur Specific [place] 1.025 (1.005-1.025) Urine Protein 1+ H (NEG-TRACE) MG/DL Urine Glucose (UA) NEG (NEG) MG/DL Urine Ketones 5 (NEG) MG/DL Urine Blood 2+ H (NEG) Urine Nitrite NEG (NEG) Ur Leukocyte Esterase TRACE H (NEG) Urine RBC 1-4 (0) /HPF Urine WBC 5-9 H (0-4) /HPF Ur Squamous Epith Cells 1+ /LPF Ur Renal Epithelial Cell 1+ /LPF Urine Bacteria 2+ /LPF WBC Casts 1-4 /LPF Urine Mucus TRACE /LPF Discharge Plan Discharge Clinical Impression: UTI (urinary tract infection), Lower abdominal pain Patient Disposition: Home, Self-Care Instructions: Urinary Tract Infection in Women (DC), Abdominal Pain (ED) Additional Instructions: 1. Continue to drink plenty of water and complete the entire course of new antibiotic. 2. STOP taking the Macrobid (nitrofurantoin). You have been started on ciprofloxacin. 3. Please follow-up with your primary care provider in the next 2-3 days for re-evaluation further outpatient management. Return to the ER for worsening symptoms. Prescriptions: New ketorolac 10 mg tablet 10 mg PO Q6H PRN (Reason: pain) 5 Days Qty: 20 0RF Rx Instructions: Patient received Toradol in the emergency room. ciprofloxacin HCl 250 mg tablet 250 mg PO Q12H 3 Days Qty: 6 0RF phenazopyridine [Pyridium] 200 mg tablet 200 mg PO TID PRN (Reason: pain) Qty: 6 0RF No Action buspirone 15 mg tablet 15 mg PO BID Qty: 180 0RF sertraline 100 mg tablet 200 mg PO DAILY 90 Days Qty: 180 0RF Mirena 20 mcg/24 hours (7 yrs) 52 mg intrauterine device intrauterine 0RF levothyroxine 112 mcg tablet 112 mcg PO DAILY 0RF Referrals: Alfonso Mcmahon, LITIGATION CLAIM REPRESENTATIVE-BC [Primary Care Provider] -
[2022-02-20] MEDS: Ketorolac Tromethamine 15 MG/ML VIAL IM (23:35)
[2022-02-20] MEDS: Acetaminophen 325 MG TABLET 975 MG PO (23:35)
[2022-02-21 00:06] VITALS: BP 112/68; PULSE 97; RESP 19; O2SAT 97
[2022-02-21] MEDS: levoFLOXacin 250 MG TABLET PO (00:40)
[2022-02-21] MEDS: Phenazopyridine HCL 200 MG TABLET PO (00:40)
[2022-02-21 00:41] VITALS: BP 112/66; PULSE 99; RESP 18; TEMP 37.2; O2SAT 96
== END 2022-02-21 00:47 | disposition home or self-care (01) ==
PROVIDERS: Emergency Provider Student in an Organized Health Care Education/Training Program; PCP Nurse Practitioner Family
DX: N39.0 Urinary tract infection, site not specified (principal); R10.30 Lower abdominal pain, unspecified; Z79.899 Other long term (current) drug therapy; F17.210 Nicotine dependence, cigarettes, uncomplicated; Z71.6 Tobacco abuse counseling
CPT/HCPCS: 74176; 81001; 87086; 96372; 99284; J1885

== ENCOUNTER 2022-04-26 10:36 | Outpatient (REF) | payer OTHER, SELFPAY | END 2022-04-26 10:37 | disposition home or self-care (01) | LOC: HO.LAB 10:36 | PROVIDERS: Visit Provider Obstetrics & Gynecology | DX: R87.820 Cervical low risk human papillomavirus (HPV) DNA test positive (principal) | CPT/HCPCS: 57454; 88305 ==

== ENCOUNTER 2022-05-18 08:07 | Outpatient (REF) | payer OTHER, SELFPAY ==
[2022-05-18 11:06] LABS: MANUAL DIFF FLAG NO
[2022-05-18 11:12] LABS: Basophils Absolute Auto 0.1 X10*3/uL (0.0-0.2); Basophils Percent Auto 0.7 % (0-2); Eosinophils Absolute Auto 0.2 X10*3/uL (0.0-0.4); Eosinophils Percent Auto 2.5 % (0-4); Hematocrit 39.5 % (37.0-47.0); Hemoglobin 12.8 g/dl (12.0-16.0); Imm Gran Abs Auto 0.03 X10*3/uL (0.00-0.03); Imm Gran Pct Auto 0.4 % (0.0-0.4); Lymphocytes Absolute Auto 1.7 X10*3/uL (1.2-4.9); Mean Corpuscular HGB Conc 32.4 g/dl (31.0-35.0); Mean Corpuscular Hemoglobin 29.8 pg (27.0-33.0); Mean Corpuscular Volume 91.9 fL (80.0-98.0); Mean Platelet Volume 9.3 fL (9.4-12.3); Monocytes Absolute Auto 0.6 X10*3/uL (0.1-1.2); Monocytes Percent Auto 9.5 % (2-11); Neutrophils Absolute Auto 4.1 x10*3/uL (2.0-8.3); Neutrophils Percent Auto 61.9 % (45-73); Platelet Count 330 X10*3/uL (160-400); White Blood Count 6.7 X10*3/uL (4.8-10.8)
[2022-05-18 11:29] LABS: Alanine Aminotransferase 20 U/L (0-31); Albumin Level 4.2 g/dL (3.5-5.0); Alkaline Phosphatase 86 U/L (39-117); Anion Gap 10 (12-20); Aspartate Amino Transferase 19 U/L (5-31); Bilirubin Total 0.3 mg/dL (0.0-1.0); Blood Urea Nitrogen 14 mg/dL (9-16); Calcium 8.8 mg/dL (8.4-10.2); Carbon Dioxide 27 mmol/L (22-29); Chloride 104 mmol/L (96-108); Cholesterol 219 mg/dL; Estimated Glomerular Filt Rate > 60; Glucose Fasting 86 mg/dL (60-99); HDL Cholesterol 49 mg/dL; LDL Cholesterol Calculated 153 mg/dl; Potassium 3.9 mmol/L (3.3-5.1); Sodium 137 mmol/L (135-145); Total Protein 6.6 g/dL (6.5-8.0); Triglycerides 89 mg/dL
[2022-05-18 11:52] LABS: TSH reflex Free T4 0.23 uIU/mL (0.32-4.0)
== END 2022-05-18 08:08 | disposition home or self-care (01) ==
LOC: HO.HMGCLDS 08:07
PROVIDERS: PCP Internal Medicine; Visit Provider Internal Medicine
DX: E03.9 Hypothyroidism, unspecified (principal); E66.09 Other obesity due to excess calories; F33.9 Major depressive disorder, recurrent, unspecified; F41.1 Generalized anxiety disorder
CPT/HCPCS: 36415; 80053; 80061; 84439; 84443; 85025

== ENCOUNTER 2022-09-05 11:49 | Outpatient (REF) | payer OTHER, SELFPAY ==
[2022-09-05 13:57] LABS: MANUAL DIFF FLAG NO
[2022-09-05 14:14] LABS: Basophils Absolute Auto 0.1 X10*3/uL (0.0-0.2); Basophils Percent Auto 0.8 % (0-2); Eosinophils Absolute Auto 0.1 X10*3/uL (0.0-0.4); Eosinophils Percent Auto 1.3 % (0-4); Hematocrit 44.4 % (37.0-47.0); Hemoglobin 14.2 g/dl (12.0-16.0); Imm Gran Abs Auto 0.04 X10*3/uL (0.00-0.03); Imm Gran Pct Auto 0.5 % (0.0-0.4); Lymphocytes Absolute Auto 1.9 X10*3/uL (1.2-4.9); Mean Corpuscular Hemoglobin 29.5 pg (27.0-33.0); Mean Corpuscular Volume 92.3 fL (80.0-98.0); Mean Platelet Volume 9.2 fL (9.4-12.3); Monocytes Absolute Auto 0.5 X10*3/uL (0.1-1.2); Monocytes Percent Auto 6.7 % (2-11); Neutrophils Absolute Auto 5.2 x10*3/uL (2.0-8.3); Neutrophils Percent Auto 66.7 % (45-73); Platelet Count 360 X10*3/uL (160-400); Red Blood Count 4.81 X10*6/uL (4.20-5.50); White Blood Count 7.9 X10*3/uL (4.8-10.8)
[2022-09-05 14:24] LABS: Alanine Aminotransferase 21 U/L (0-31); Albumin Level 4.6 g/dL (3.5-5.0); Alkaline Phosphatase 101 U/L (39-117); Anion Gap 13 (12-20); Aspartate Amino Transferase 20 U/L (5-31); Bilirubin Total 0.5 mg/dL (0.0-1.0); Blood Urea Nitrogen 16 mg/dL (9-16); Calcium 9.7 mg/dL (8.4-10.2); Carbon Dioxide 29 mmol/L (22-29); Chloride 104 mmol/L (96-108); Estimated Glomerular Filt Rate > 60; Glucose Random 85 mg/dL (60-115); Potassium 4.2 mmol/L (3.3-5.1); Sodium 142 mmol/L (135-145); Total Protein 7.5 g/dL (6.5-8.0)
== END 2022-09-05 11:50 | disposition home or self-care (01) ==
LOC: HO.HMGCLDS 11:49
PROVIDERS: PCP Internal Medicine; Visit Provider Internal Medicine
DX: E03.9 Hypothyroidism, unspecified (principal); E66.09 Other obesity due to excess calories; F41.1 Generalized anxiety disorder
CPT/HCPCS: 36415; 80053; 85025

== ENCOUNTER 2023-04-26 08:06 | Outpatient (REF) | payer OTHER, SELFPAY ==
[2023-05-03 05:18] LABS: HPV mRNA E6/E7 rflx Not Detected (Not Detected)
== END 2023-04-26 08:07 | disposition home or self-care (01) ==
LOC: HO.LNP 08:06
PROVIDERS: PCP Internal Medicine; Visit Provider Obstetrics & Gynecology
DX: Z01.419 Encounter for gynecological examination (general) (routine) without abnormal findings (principal); Z11.51 Encounter for screening for human papillomavirus (HPV)
CPT/HCPCS: 87624; 88142

== ENCOUNTER 2023-05-09 08:58 | Outpatient (AMB) | payer OTHER, SELFPAY ==
--- NOTE | 2023-05-09 09:29 | AM.OFFWIN_ITS ---
Intake Vital Signs 05/09/23 09:33 BP 120/80 Blood Pressure Location Lt brachial Position Sitting Pulse 102 H Pulse Source Pulse Oximeter Temp 97.8 F Temp Source Temporal Artery Scan Pulse Oximetry (%) 98 Oxygen Delivery Method Room Air Intake Visit Reasons: EP Strep? [phone] Intake Note: Patient here for possible Strep throat, she has been feeling bodyaches. she has been exposed to strep from kids and bestfriends house. Patient Tobacco Use Status: Former Tobacco user Allergies No Known Allergies Allergy (Verified 05/09/23 09:58) Medication List - Last Reconciled 05/09/23 by Nadia Hutson, YARDAGE ESTIMATOR- alprazolam 0.25 mg (1/2 x 0.5 mg) PO DAILY PRN 90 days buspirone 15 mg PO BID 30 days levonorgestrel (Mirena) intrauterine levothyroxine 112 mcg PO QAM sertraline 200 mg (2 x 100 mg) PO DAILY 90 days Do you need a note to return to daycare/school/sports/work: No HPI HPI Comments History of Present Illness Details Here today with complaints of body aches chills and a sore throat that started after exposure to known strep throat. Reports that both of her kids are home sick with strep throat. [facility] Medical History Anxiety Depression History of back problems History of COVID-19 History of kidney stones History of UTI HPV in female Migraine Mild scoliosis Thyroid ca Surgical History Hx of thyroidectomy No pertinent past surgical history Family History Father HTN (hypertension) Mother No problems noted. Brother No problems noted. Brother No problems noted. Son No problems noted. Son No problems noted. Sister No problems noted. Daughter No problems noted. 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 Sexual orientation: Straight/Heterosexual Gender identity: Female Cognitive needs: No Hearing needs: No Vision needs: No Female Reproductive History Menstrual Age of Menarche: 10 Review of Systems Const All systems reviewed & are unremarkable except as noted in HPI and below Physical Exam Vital Signs: Last Vital Signs Temp 97.8 F 05/09/23 09:33 Pulse 102 H 05/09/23 09:33 BP 120/80 05/09/23 09:33 Pulse Ox 98 05/09/23 09:33 Oxygen Delivery Method Room Air 05/09/23 09:33 Const Other: Awake alert oriented no acute distress Exudative pharyngitis, uvula midline, managing secretions Tachycardic regular rhythm Speaking in full sentences Skin pink warm dry Results AMB Rapid Strep AMB Rapid Strep Positive Last Edit by STEPHANE Rivers on 05/09/23 09: 43 Results Reviewed Results Reviewed: Laboratory Last Values Strep Scn [facility] Positive 05/09/23 09:42 Assessment & Plan Assessment & Plan (1) Strep pharyngitis: Code(s): J02.0 - Streptococcal pharyngitis Orders: Orders AMB Rapid Strep Screen Today Z13.9 - Encounter for screening, unspecified Medications: New amoxicillin-pot clavulanate 875-125 mg 1 tab PO BID 7 days 14 tabs 0RF Patient Instructions: Advised to take antibiotics as instructed. Recommend taking with food to avoid GI upset. Complete course of antibiotics even if feeling better. Okay to use [id number] analgesics as needed. Hydrate well. Remember to change toothbrush tomorrow and monitor your bed linens in hot water. Advised on reasons to seek additional care Coding Level of Care Code Est Pt Level 3 (64757) Diagnoses Strep pharyngitis J02.0
[2023-05-09 09:33] VITALS: BP 120/80; PULSE 102; TEMP 36.6; O2SAT 98
== END 2023-05-09 10:10 | disposition home or self-care (01) ==
PROVIDERS: PCP Internal Medicine; Visit Provider Nurse Practitioner Family
DX: Z13.9 Encounter for screening, unspecified (principal); J02.0 Streptococcal pharyngitis
CPT/HCPCS: 87880; 99213

== ENCOUNTER 2023-05-29 10:32 | Outpatient (AMB) | payer OTHER, SELFPAY ==
[2023-05-29 10:34] VITALS: BP 120/80; PULSE 83; O2SAT 97; BMI 34.6
--- NOTE | 2023-05-29 10:34 | MHC.PC.OV ---
Vital Signs 05/29/23 10:34 Height 5 ft 1 in Weight 183 lb 4 oz BMI 34.6 BP 120/80 Blood Pressure Location Rt brachial Position Sitting Pulse 83 Pulse Source Pulse Oximeter Pulse Oximetry (%) 97 Oxygen Delivery Method Room Air Intake Visit Reasons: PE Allergies No Known Allergies Allergy (Verified 05/29/23 10:34) Medication List - Last Reconciled 05/29/23 by Ambrosio Ash MD alprazolam 0.25 mg (1/2 x 0.5 mg) PO DAILY PRN 90 days buspirone 15 mg PO BID 30 days levonorgestrel (Mirena) intrauterine levothyroxine 112 mcg PO QAM sertraline 200 mg (2 x 100 mg) PO DAILY 90 days Tobacco use date assessed: 05/29/23 Dental Screening Dental Screen Date: 05/29/23 Did you have a dental visit in the last 12 months?: Yes Did you have a dental problem in the last 6 months where you did not have access to dental care?: No Was dental information given to patient?: No HPI PE HPI Details Patient is a 37-year-old female came in today for physical exam appointment Complaining of pain in her hands specially the morning it feels stiff On examination patient is developing signs of osteoarthritis I have ordered x-ray for her She may take 1 Aleve with breakfast the morning if needed Anxiety stable patient is currently taking alprazolam only as needed she is getting 45 tablet per 90 days Sometimes she needs to take more than 1 a day and sometime she does not take any.? She is also taking buspirone 15 mg b.i.d. and sertraline 200 mg daily.? Patient will return in 3 month for medication refills ? Patient is seeing Dr. Pederson for OBGYN need Due for labs to be done fasting along with x-ray of her hands COUNT INCLUDES [facility] Medical History Anxiety Depression History of back problems History of COVID-19 History of kidney stones History of UTI HPV in female Migraine Mild scoliosis Thyroid ca Surgical History Hx of thyroidectomy No pertinent past surgical history Family History Father HTN (hypertension) Mother No problems noted. Brother No problems noted. Brother No problems noted. Son No problems noted. Son No problems noted. Sister No problems noted. Daughter No problems noted. 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 How often do you have a drink containing alcohol?: Never 3. How often do you have six or more drinks on one occasion?: Never Total Score: 0 Score Reviewed/Action Taken: Yes MYESHA-7 AMB Questionnaire MYESHA-7 Date MYESHA - 7 assessed: 11/17/22 Source: Developed by Drs. Tulio Osborne, Sondra Downing, Ernie Wiley and colleagues, with an educational chayo from [employer]. Review of Systems Const Denies chills, Denies fever(s) and Denies headache(s) Eyes Denies blurry vision ENT Denies headache(s), Denies nasal discharge, Denies nasal obstruction, Denies odynophagia and Denies sinus pain Card Denies chest pain at rest and Denies chest pain with activity Resp Denies cough and Denies hemoptysis GI Denies diarrhea, Denies odynophagia, Denies vomiting and Denies hematemesis Reports as per HPI Musc Denies abnormal gait Skin/Breast Reports as per HPI Neuro Denies Neuro-related abnormal movements, Denies Abnormal speech present, Denies abnormal gait, Denies headache(s) and Denies Sensory deficit (Neuro) Psych Denies mood swings and Denies paranoia Endo Reports as per HPI Eric/Lymph Reports as per HPI Aller/Immun Reports as per HPI Physical exam (Primary Care) Vital Signs: Last Vital Signs Pulse 83 05/29/23 10:34 BP 120/80 05/29/23 10:34 Pulse Ox 97 05/29/23 10:34 Oxygen Delivery Method Room Air 05/29/23 10:34 BMI result Body Mass Index 34.6 Tobacco/Smoking Status: Tobacco use Status Tobacco use date assessed 05/29/23 05/29/23 10:36 Patient Tobacco Use Status Former Tobacco user 05/29/23 10:36 Tobacco use type Cigarette 05/29/23 10:36 e-Cigarette/Vaping Use Never Used 05/29/23 10:36 Thrive Assessment: Date of Thrive Assessment Date Thrive assessed 11/17/22 05/29/23 10:36 Const General: cooperative, comfortable and no acute distress Orientation/consciousness: patient oriented x3 HENMT Head: Yes normocephalic and Yes atraumatic Eyes General: appearance normal, both eyes and all related structures Pupils: Equal, round and reactive pupils present EOM: EOMs intact bilaterally Neck Neck: Yes supple and No lymphadenopathy Thyroid: Thyroid normal Lymphatic: no lymphadenopathy noted Resp Effort & Inspection: normal respiratory effort and able to speak in complete sentences Auscultation: clear to auscultation bilaterally Cardio Heart sounds: S1 normal heart sound present and S2 normal heart sound present GI Palpation (GI): Soft to palpation and nontender Auscultation: normal bowel sounds General: Yes no CVA tenderness Back/Spine/Pelvis Back: no CVA tenderness Skin General skin exam: elasticity normal and turgor normal Neuro General: patient oriented x3 and gait normal Cranial nerves: Yes Equal, round and reactive pupils present Speech: No Abnormal speech present Sensory Exam: No Sensory deficit (Neuro) Coordination: tandem gait normal and Romberg test negative Extrem Other: Signs of osteoarthritis in small joints of hands bilateral General: Yes normal exam except as noted and No edema Assessment and Plan Assessment & Plan (1) Encounter for general adult medical examination with abnormal findings: Code(s): Z00.01 - Encounter for general adult medical examination with abnormal findings (2) Anxiety, generalized: Code(s): F41.1 - Generalized anxiety disorder (3) Major depression, recurrent: Code(s): F33.9 - Major depressive disorder, recurrent, unspecified (4) Pain in both hands: Code(s): M79.641 - Pain in right hand; M79.642 - Pain in left hand Plan Patient is a 37-year-old female came in today for physical exam appointment Complaining of pain in her hands specially the morning it feels stiff On examination patient is developing signs of osteoarthritis I have ordered x-ray for her She may take 1 Aleve with breakfast the morning if needed Anxiety stable patient is currently taking alprazolam only as needed she is getting 45 tablet per 90 days Sometimes she needs to take more than 1 a day and sometime she does not take any.? She is also taking buspirone 15 mg b.i.d. and sertraline 200 mg daily.? Patient will return in 3 month for medication refills ? Patient is seeing Dr. Pederson for OBGYN need Due for labs to be done fasting along with x-ray of her hands Orders: Orders Complete Blood Count Auto Diff Today F33.9 - Major depressive disorder, recurrent, unspecified, F41.1 - Generalized anxiety disorder, M79.641 - Pain in right hand, M79.642 - Pain in left hand, Z00.01 - Encounter for general adult medical examination with abnormal findings Comprehensive [place]. Panel Fast Today F33.9 - Major depressive disorder, recurrent, unspecified, F41.1 - Generalized anxiety disorder, M79.641 - Pain in right hand, M79.642 - Pain in left hand, Z00.01 - Encounter for general adult medical examination with abnormal findings Lipid Panel Today F33.9 - Major depressive disorder, recurrent, unspecified, F41.1 - Generalized anxiety disorder, M79.641 - Pain in right hand, M79.642 - Pain in left hand, Z00.01 - Encounter for general adult medical examination with abnormal findings TSH reflex Free T4 Today F33.9 - Major depressive disorder, recurrent, unspecified, F41.1 - Generalized anxiety disorder, M79.641 - Pain in right hand, M79.642 - Pain in left hand, Z00.01 - Encounter for general adult medical examination with abnormal findings Vitamin D 25-OH (D2 and D3) Today F33.9 - Major depressive disorder, recurrent, unspecified, F41.1 - Generalized anxiety disorder, M79.641 - Pain in right hand, M79.642 - Pain in left hand, Z00.01 - Encounter for general adult medical examination with abnormal findings Medications: Refilled buspirone 15 mg PO BID 60 tabs 1RF 30 days sertraline 200 mg (2 x 100 mg) PO DAILY 180 tabs 0RF 90 days F41.8 - Other specified anxiety disorders alprazolam Take half a tablet as needed for anxiety/panic 0.25 mg (1/2 x 0.5 mg) PO DAILY PRN 30 tabs 0RF anxiety 90 days Coding Level of Care Code Est Pt Prev Care 18-39y(36133) Diagnoses Encounter for general adult medical examination with abnormal findings Z00.01 Anxiety, generalized F41.1 Major depression, recurrent F33.9 Pain in both hands M79.641; M79.642
== END 2023-05-29 11:24 | disposition home or self-care (01) ==
PROVIDERS: PCP Internal Medicine; Visit Provider Internal Medicine
DX: Z00.01 Encounter for general adult medical examination with abnormal findings (principal); F41.1 Generalized anxiety disorder; F33.9 Major depressive disorder, recurrent, unspecified; M79.641 Pain in right hand; M79.642 Pain in left hand
CPT/HCPCS: 99395

== ENCOUNTER 2023-05-29 11:03 | Outpatient (REF) | payer OTHER, SELFPAY ==
--- NOTE | ~2023-05-29 | XR_ITS ---
EXAMINATION: XR HAND, RIGHT CLINICAL INFORMATION: Pain COMPARISON: None available. TECHNIQUE: PA, lateral, and oblique views of the right hand. FINDINGS: No acute fracture or dislocation. Joint spaces are maintained. Subchondral cystic change in the scaphoid. Soft tissue are unremarkable. XR/XR hand RT min 3V IMPRESSION: Subchondral cystic change in the scaphoid, which can be seen in the setting of mild degenerative changes.
[2023-05-29 13:20] LABS: MANUAL DIFF FLAG NO
[2023-05-29 13:56] LABS: Basophils Absolute Auto 0.1 X10*3/uL (0.0-0.2); Eosinophils Absolute Auto 0.1 X10*3/uL (0.0-0.4); Eosinophils Percent Auto 1.8 % (0-4); Hematocrit 40.5 % (37.0-47.0); Hemoglobin 13.2 g/dl (12.0-16.0); Imm Gran Abs Auto 0.03 X10*3/uL (0.00-0.03); Imm Gran Pct Auto 0.5 % (0.0-0.4); Lymphocytes Absolute Auto 1.5 X10*3/uL (1.2-4.9); Lymphocytes Percent Auto 23.8 % (20-40); Mean Corpuscular HGB Conc 32.6 g/dl (31.0-35.0); Mean Corpuscular Hemoglobin 30.1 pg (27.0-33.0); Mean Corpuscular Volume 92.5 fL (80.0-98.0); Mean Platelet Volume 9.7 fL (9.4-12.3); Monocytes Absolute Auto 0.5 X10*3/uL (0.1-1.2); Monocytes Percent Auto 7.5 % (2-11); Neutrophils Absolute Auto 4.1 x10*3/uL (2.0-8.3); Neutrophils Percent Auto 65.4 % (45-73); Platelet Count 323 X10*3/uL (160-400); Red Blood Count 4.38 X10*6/uL (4.20-5.50); Red Cell Distribution Width 11.9 % (11.0-16.0); White Blood Count 6.2 X10*3/uL (4.8-10.8)
[2023-05-29 14:33] LABS: Alanine Aminotransferase 16 U/L (0-31); Albumin Level 4.2 g/dL (3.5-5.0); Alkaline Phosphatase 86 U/L (39-117); Anion Gap 11 (12-20); Aspartate Amino Transferase 17 U/L (5-31); Bilirubin Total 0.5 mg/dL (0.0-1.0); Blood Urea Nitrogen 12 mg/dL (9-16); Calcium 9.6 mg/dL (8.4-10.2); Carbon Dioxide 27 mmol/L (22-29); Chloride 107 mmol/L (96-108); Cholesterol 222 mg/dL; Estimated Glomerular Filt Rate > 60; Glucose Fasting 87 mg/dL (60-99); HDL Cholesterol 50 mg/dL; LDL Cholesterol Calculated 151 mg/dl; Potassium 4.1 mmol/L (3.3-5.1); Sodium 141 mmol/L (135-145); Total Protein 7.1 g/dL (6.5-8.0); Triglycerides 105 mg/dL
[2023-05-29 14:51] LABS: TSH reflex Free T4 0.81 uIU/mL (0.32-4.0)
[2023-06-02 12:48] LABS: Vitamin D 25-OH, D2 <4 ng/mL; Vitamin D 25-OH, D3 34 ng/mL; Vitamin D 25-OH, Total 34 ng/mL (30-100)
== END 2023-05-29 11:04 | disposition home or self-care (01) ==
LOC: HO.HMGCX 11:03
PROVIDERS: PCP Internal Medicine; Visit Provider Internal Medicine
DX: Z00.01 Encounter for general adult medical examination with abnormal findings (principal); M79.641 Pain in right hand; M79.642 Pain in left hand; F33.9 Major depressive disorder, recurrent, unspecified; F41.1 Generalized anxiety disorder
CPT/HCPCS: 36415; 73130; 80053; 80061; 82306; 84443; 85025

== ENCOUNTER 2023-06-28 08:11 | Outpatient (AMB) | payer OTHER, SELFPAY ==
--- NOTE | 2023-06-28 09:42 | MHC.PC.OV ---
Intake Visit Reasons: 2 wk Follow Up Depression~ Allergies No Known Allergies Allergy (Verified 06/28/23 09:42) Medication List - Last Reconciled 06/28/23 by Ambrosio Ash MD alprazolam 0.25 mg (1/2 x 0.5 mg) PO DAILY PRN 90 days buspirone 15 mg PO BID 30 days levonorgestrel (Mirena) intrauterine levothyroxine 112 mcg PO QAM venlafaxine ER 150 mg PO BEDTIME Tobacco use date assessed: 06/28/23 Dental Screening Dental Screen Date: 06/28/23 Did you have a dental visit in the last 12 months?: No Did you have a dental problem in the last 6 months where you did not have access to dental care?: No Was dental information given to patient?: Patient has dentist HPI 2 wk Follow Up Depression~ HPI Details Patient is 38-year-old female this is a tele medicine radio conference Patient suffers from anxiety and depression She did well for a while with sertraline Recently patient sent as a message that she feels as if she is not fully controlled with her depression Sometimes she had to struggle to just make dinner for the family and feels tired all the time. She wanted to be switched to venlafaxine which we did. She is feeling little better but continued to feel the symptoms In the past patient was also on Wellbutrin and she did well. I have added Wellbutrin 150 mg she is to start taking that 1 daily along with venlafaxine 150 mg Anxiety is stable patient is on booster on 15 mg 2 times a day and alprazolam 0.25 mg as needed. If there are any other problems patient will get back to me otherwise she will be seen in August for her regular follow-up appointment . [facility] Medical History HPV in female Thyroid ca History of COVID-19 History of back problems Anxiety Migraine Mild scoliosis History of kidney stones History of UTI Depression Surgical History Hx of thyroidectomy No pertinent past surgical history Family History Father HTN (hypertension) Mother No problems noted. Brother No problems noted. Brother No problems noted. Son No problems noted. Son No problems noted. Sister No problems noted. Daughter No problems noted. 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 How often do you have a drink containing alcohol?: Never 3. How often do you have six or more drinks on one occasion?: Never Total Score: 0 Score Reviewed/Action Taken: Yes MYESHA-7 AMB Questionnaire MYESHA-7 Date MYESHA - 7 assessed: 11/17/22 Source: Developed by Drs. Tulio Osborne, Sondra Downing, Ernie Wiley and colleagues, with an educational chayo from [employer]. Review of Systems Const Denies chills and Denies fever(s) ENT Denies epistaxis and Denies nasal discharge Card Denies chest pain Resp Denies chest congestion, Denies cough and Denies hemoptysis GI Denies diarrhea and Denies nausea Skin/Breast Denies rash Neuro Reports no additional complaints Psych Reports no additional complaints Endo Reports no additional complaints Physical exam (Primary Care) Tobacco/Smoking Status: Tobacco use Status Tobacco use date assessed 06/28/23 06/28/23 09:43 Patient Tobacco Use Status Former Tobacco user 06/28/23 09:42 Tobacco use type Cigarette 06/28/23 09:42 e-Cigarette/Vaping Use Never Used 06/28/23 09:42 Thrive Assessment: Date of Thrive Assessment Date Thrive assessed 11/17/22 06/28/23 09:42 Telehealth Telehealth Location of provider rendering services: practice address Location of patient: address on file Patient Identification confirmed using: Name, : Yes Telehealth method: video Patient verbally consented to treatment: Yes Patient verbally consented to billing insurance company: Yes Patient informed of any privacy concerns related to visit: Yes Minutes spent on Phone/Video with Pt.: 14 Assessment and Plan Assessment & Plan (1) Major depression, recurrent: Code(s): F33.9 - Major depressive disorder, recurrent, unspecified Qualifiers: Active/Remission status: currently active Major depression episode severity: moderate Qualified Code(s): F33.1 - Major depressive disorder, recurrent, moderate (2) Anxiety, generalized: Code(s): F41.1 - Generalized anxiety disorder Plan Patient is 38-year-old female this is a tele medicine radio conference Patient suffers from anxiety and depression She did well for a while with sertraline Recently patient sent as a message that she feels as if she is not fully controlled with her depression Sometimes she had to struggle to just make dinner for the family and feels tired all the time. She wanted to be switched to venlafaxine which we did. She is feeling little better but continued to feel the symptoms In the past patient was also on Wellbutrin and she did well. I have added Wellbutrin 150 mg she is to start taking that 1 daily along with venlafaxine 150 mg Anxiety is stable patient is on booster on 15 mg 2 times a day and alprazolam 0.25 mg as needed. If there are any other problems patient will get back to me otherwise she will be seen in August for her regular follow-up appointment . Medications: New bupropion HCl (Wellbutrin SR) 150 mg PO QAM 90 tabs 0RF Changed From venlafaxine ER 150 mg PO BEDTIME 30 caps 0RF To venlafaxine ER 150 mg PO BEDTIME 90 days 90 caps 0RF Coding Level of Care Code Tele Est Pt Level 3 (81600) Diagnoses Moderate episode of recurrent major depressive disorder F33.1 Active/Remission status: currently active Major depression episode severity: moderate Anxiety, generalized F41.1
== END 2023-06-28 16:41 | disposition home or self-care (01) ==
LOC: HO.HMGC 08:11
PROVIDERS: PCP Internal Medicine; Visit Provider Internal Medicine
DX: F33.1 Major depressive disorder, recurrent, moderate (principal); F41.1 Generalized anxiety disorder
CPT/HCPCS: 99213

== ENCOUNTER 2023-09-04 12:24 | Outpatient (AMB) | payer OTHER, SELFPAY ==
--- NOTE | 2023-09-04 12:33 | A.OFFPC_ITS ---
Vital Signs 09/04/23 12:40 Height 5 ft 1 in Weight 174 lb 6 oz BMI 32.9 BP 126/84 Blood Pressure Location Rt brachial Position Sitting Pulse 101 H Pulse Source Pulse Oximeter Pulse Oximetry (%) 97 Oxygen Delivery Method Room Air Intake Visit Reasons: 3 month fu Allergies No Known Allergies Allergy (Verified 09/04/23 12:33) Medication List - Last Reconciled 09/04/23 by Ambrosio Ash MD alprazolam 0.25 mg (1/2 x 0.5 mg) PO DAILY PRN 90 days bupropion HCl (Wellbutrin SR) 150 mg PO QAM buspirone 15 mg PO BID 30 days levonorgestrel (Mirena) intrauterine levothyroxine 112 mcg PO QAM phentermine 37.5 mg PO DAILY topiramate 25 mg PO DAILY venlafaxine ER 150 mg PO BEDTIME 90 days Tobacco use date assessed: 09/04/23 Dental Screening Dental Screen Date: 09/04/23 Did you have a dental visit in the last 12 months?: Yes Did you have a dental problem in the last 6 months where you did not have access to dental care?: No Was dental information given to patient?: Patient has dentist HPI 3 month fu HPI Details Patient is 38-year-old female this is a regular follow-up visit for medication refill Patient suffers from anxiety and depression She is currently on venlafaxine and Wellbutrin and is doing well Patient also take alprazolam as needed I see that she is taking Phentermine and Topamax through weight loss provider in [place] Patient says that she has been able to do some weight on this medication and is tolerating it well [facility] Medical History HPV in female Thyroid ca History of COVID-19 History of back problems Anxiety Migraine Mild scoliosis History of kidney stones History of UTI Depression Surgical History Hx of thyroidectomy No pertinent past surgical history Family History Father HTN (hypertension) Mother No problems noted. Brother No problems noted. Brother No problems noted. Son No problems noted. Son No problems noted. Sister No problems noted. Daughter No problems noted. 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 1. Little interest or pleasure in doing things: several days 2. Feeling down, depressed, or hopeless: several days 3. Trouble falling or staying asleep, or sleeping too much: several days 4. Feeling tired or having little energy: several days 5. Poor appetite or overeating: not at all 6. Feeling bad about yourself - or that you are a failure or have let yourself or your family down: not at all 7. Trouble concentrating on things, such as reading the newspaper or watching television: not at all 8. Moving or speaking so slowly that other people could have noticed. Or the opposite - being so fidgety or restless that you have been moving around a lot more than usual: not at all 9. Thoughts that you would be better off or of hurting yourself in some way: not at all Total score: 4 Depression Screening Interpretation: Negative Depression Screening Done: Yes 19956 - PHQ-9 Billing: Yes Source: Developed by Drs. Tulio Osborne, Sondra Downing, Ernie Wiley and colleagues, with an educational chayo from [employer]. Thrive Questionnaire Date Thrive assessed: 09/04/23 I am a: Patient What is your living situation today?: I have a steady place to live Within the past 12 months, did the food you bought not last and you didn't have the money to get more?: Never true Within the past 12 months, did you worry whether your food would run out before you got money to buy more?: Never true Do you have trouble paying for medicines?: No Do you have trouble getting transportation to medical appointments?: No Do you have trouble paying your heating and electricity bill?: No Do you have trouble taking care of your child, family member or friend?: No Do you have trouble with day-to-day activities such as bathing, preparing meals, shopping, managing finances, etc.?: No Are you currently unemployed and looking for a job?: No Are you interested in more education?: No Please select the resources that you would like help with: None Currently or been in a relationship where the following occur: no concerns reported AUDIT C Alcohol Use Questionnaire (AUDIT-C) 1. How often do you have a drink containing alcohol?: Never 3. How often do you have six or more drinks on one occasion?: Never Total Score: 0 Score Reviewed/Action Taken: Yes MYESHA-7 AMB Questionnaire MYESHA-7 Date MYESHA - 7 assessed: 09/04/23 Feeling nervous, anxious, or on edge: 0 = Not at all Not being able to stop or control worryin = Several days Worrying too much about different things: 1 = Several days Trouble relaxin = Not at all Being so restless that it is hard to sit still: 0 = Not at all Becoming easily annoyed or irritable: 0 = Not at all Feeling afraid as if something awful might happen: 0 = Not at all Total MYESHA-7 score (0-4 normal; 5-9 mild; 10-14 moderate; 15-21 severe): 2 Source: Developed by Drs. Tulio Osborne, Sondra Downing, Ernie Wiley and colleagues, with an educational chayo from [employer]. MYESHA-7 Assessment Billing MYESHA-7 Assessment Tool: MYESHA-7 Assessment [id number] Review of Systems Const Denies chills and Denies fever(s) ENT Denies epistaxis and Denies nasal discharge Card Denies chest pain Resp Denies chest congestion, Denies cough and Denies hemoptysis GI Denies diarrhea and Denies nausea Skin/Breast Denies rash Neuro Reports no additional complaints Psych Reports no additional complaints Endo Reports no additional complaints Physical exam (Primary Care) Vital Signs: Last Vital Signs Pulse 101 H 09/04/23 12:40 BP 126/84 09/04/23 12:40 Pulse Ox 97 09/04/23 12:40 Oxygen Delivery Method Room Air 09/04/23 12:40 BMI result Body Mass Index 32.9 Tobacco/Smoking Status: Tobacco use Status Tobacco use date assessed 09/04/23 09/04/23 12:35 Patient Tobacco Use Status Former Tobacco user 09/04/23 12:35 Tobacco use type Cigarette 09/04/23 12:35 e-Cigarette/Vaping Use Never Used 09/04/23 12:35 PHQ-9: PHQ-9 Score PHQ-9: Total score 4 09/04/23 12:56 Depression Screening Interpretation: Negative Thrive Assessment: Date of Thrive Assessment Date Thrive assessed 09/04/23 09/04/23 12:53 Currently or been in a relationship where the following occur: no concerns reported Const General: cooperative, comfortable and no acute distress Orientation/consciousness: patient oriented x3 HENMT Head: Yes normocephalic Eyes General: appearance normal, both eyes and all related structures Neck Neck: Yes supple Resp Effort & Inspection: normal respiratory effort, no cough and no stridor Cardio Rhythm: regular rhythm Heart sounds: S1 normal heart sound present and S2 normal heart sound present Skin General skin exam: turgor normal Neuro General: patient oriented x3, tone normal and moves all extremities Extrem Right lower extremity: no edema Left lower extremity: no edema Assessment and Plan Assessment & Plan (1) Major depression, recurrent: Code(s): F33.9 - Major depressive disorder, recurrent, unspecified Qualifiers: Active/Remission status: currently active Major depression episode severity: moderate Qualified Code(s): F33.1 - Major depressive disorder, recurrent, moderate (2) Anxiety, generalized: Code(s): F41.1 - Generalized anxiety disorder Plan Patient is 38-year-old female this is a regular follow-up visit for medication refill Patient suffers from anxiety and depression She is currently on venlafaxine and Wellbutrin and is doing well Patient also take alprazolam as needed I see that she is taking Phentermine and Topamax through weight loss provider in [place] Patient says that she has been able to do some weight on this medication and is tolerating it well Medications: Refilled alprazolam Take half a tablet as needed for anxiety/panic 0.25 mg (1/2 x 0.5 mg) PO DAILY PRN 30 tabs 0RF anxiety 90 days Coding Level of Care Code Est Pt Level 3 (18563) Diagnoses Moderate episode of recurrent major depressive disorder F33.1 Active/Remission status: currently active Major depression episode severity: moderate Anxiety, generalized F41.1 Additional Codes MYESHA-7 Assessment Billing - MYESHA-7 Assessment Tool: MYESHA-7 Assessment [id number] ([id number])
[2023-09-04 12:40] VITALS: BP 126/84; PULSE 101; O2SAT 97; BMI 32.9
== END 2023-09-04 13:36 | disposition home or self-care (01) ==
PROVIDERS: PCP Internal Medicine; Visit Provider Internal Medicine
DX: F33.1 Major depressive disorder, recurrent, moderate (principal); F41.1 Generalized anxiety disorder
CPT/HCPCS: 99213

== ENCOUNTER 2023-09-07 08:28 | Outpatient (AMB) | payer OTHER, SELFPAY ==
--- NOTE | 2023-09-07 08:56 | MHC.OFFWIV ---
Intake Vital Signs 09/07/23 09:05 Height 5 ft 1 in Weight 173 lb BMI 32.7 BP 120/80 Blood Pressure Location Rt brachial Position Sitting Pulse 106 H Pulse Source Pulse Oximeter Temp 97.8 F Temp Source Temporal Artery Scan Pulse Oximetry (%) 96 Oxygen Delivery Method Room Air Intake Visit Reasons: EST/congestion([phone]) Intake Note: Pt is here today c/o nasal congestion and coughing x6days Patient Tobacco Use Status: Former Tobacco user Allergies No Known Allergies Allergy (Verified 09/07/23 08:57) Do you need a note to return to daycare/school/sports/work: No HPI HPI Comments History of Present Illness Details This is a 38-year-old female who presents to the office today for sick visit. Patient complaining of sinus congestion, rhinorrhea, dry cough, and mild sore throat x5 days. She states the symptoms have been progressively worsening over the last 5 days. She denies any fevers or chills. She denies any sputum production. She states the nasal drainage is clear. She had positive sick contact with her children. [facility], [facility] Medical History HPV in female Thyroid ca History of COVID-19 History of back problems Anxiety Migraine Mild scoliosis History of kidney stones History of UTI Depression Surgical History Hx of thyroidectomy No pertinent past surgical history Family History Father HTN (hypertension) Mother No problems noted. Brother No problems noted. Brother No problems noted. Son No problems noted. Son No problems noted. Sister No problems noted. Daughter No problems noted. 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 Sexual orientation: Straight/Heterosexual Gender identity: Female Cognitive needs: No Hearing needs: No Vision needs: No Female Reproductive History Menstrual Age of Menarche: 10 Review of Systems Const All systems reviewed & are unremarkable except as noted in HPI and below Reports no additional complaints Eyes Reports no additional complaints ENT Reports no additional complaints Card Reports no additional complaints Resp Reports no additional complaints GI Reports no additional complaints Reports no additional complaints Musc Reports no additional complaints Skin/Breast Reports system reviewed and no additional complaints, except as documented Neuro Reports no additional complaints Psych Reports no additional complaints Endo Reports no additional complaints Eric/Lymph Reports no additional complaints Aller/Immun Reports no additional complaints Physical Exam Vital Signs: Last Vital Signs Temp 97.8 F 09/07/23 09:05 Pulse 106 H 09/07/23 09:05 BP 120/80 09/07/23 09:05 Pulse Ox 96 09/07/23 09:05 Oxygen Delivery Method Room Air 09/07/23 09:05 BMI result Body Mass Index 32.7 Const Other: Vital signs reviewed. Constitutional: Non-toxic appearing. No acute distress. Well-developed and well-nourished. HEENT: Normocephalic and atraumatic. Tympanic membranes without erythema, edema, or bulging bilaterally. External auditory canals without erythema or edema bilaterally. Moist mucous membranes. Mild posterior pharyngeal erythema but no edema or exudates. Skin: Warm and dry. No rashes or lesions noted. Neck: Full and painless range of motion. No cervical lymphadenopathy. Cardio: Regular rate and rhythm. No murmurs, gallops, or rubs. No lower extremity edema. No JVD. Pulmonary: No respiratory distress. No accessory muscle usage. Clear to auscultation bilaterally without wheezing, crackles, or rhonchi. Gastrointestinal: Soft, nontender, and nondistended in all 4 quadrants. Normoactive bowel sounds in all 4 quadrants. Genitourinary: No CVA tenderness. Musculoskeletal: Normal range of motion in joints throughout the body. No deformity or other signs of injury. Neuro: Alert and oriented x4. Cranial nerves 2-12 grossly intact. No focal deficits appreciated. Psych: Normal mood and affect. Assessment & Plan Assessment & Plan (1) Viral URI with cough: Code(s): J06.9 - Acute upper respiratory infection, unspecified Plan: This is a 38-year-old female presenting with progressively worsening sinus/nasal congestion, rhinorrhea, mild sore throat, and dry cough for the past 5 days. Patient's vital signs are stable T exception of mild tachycardia which appears to be her baseline, she is overall nontoxic appearing, and her physical exam is benign. Patient presenting with signs and symptoms most consistent with acute viral upper respiratory tract infection. Recommended symptomatic management including rest, increased fluids, advil/tylenol for pain/fever, and over the counter throat lozenges/decongestants. I do believe the patient's symptoms are likely related to a virus and this is likely a self-limiting illness; however, Given patient's symptoms have been worsening for the past 5 days, I did send a prescription for a Z-Carson to patient's pharmacy per patient request. I instructed the patient to wait 48 more hours prior to utilizing antibiotics to see if her symptoms improve on their own. She was made aware of the risks of unnecessary antibiotic use such as multi drug-resistant organisms, C diff colitis, and mild side effects such as GI upset and nausea/vomiting/diarrhea. Patient verbalizes her understanding and she is in agreement with the plan. Patient advised to follow up here or go to the emergency room for worsening/persistent symptoms. Medications: New azithromycin For 250 mg dose pack: take 500 mg today (day 1), then 250 mg for 4 days (days 2-5) PO 6 tabs 0RF Coding Level of Care Code Est Pt Level 3 (25390) Diagnoses Viral URI with cough J06.9
[2023-09-07 09:05] VITALS: BP 120/80; PULSE 106; TEMP 36.6; O2SAT 96; BMI 32.7
== END 2023-09-07 09:19 | disposition home or self-care (01) ==
PROVIDERS: PCP Internal Medicine; Visit Provider Physician Assistant Medical
DX: J06.9 Acute upper respiratory infection, unspecified (principal)
CPT/HCPCS: 99213

== ENCOUNTER 2023-12-07 12:30 | Outpatient (AMB) | payer OTHER, SELFPAY ==
[2023-12-07 12:30] VITALS: BP 122/80; PULSE 107; O2SAT 95; BMI 30.4
--- NOTE | 2023-12-07 12:30 | MHC.PC.OV ---
Vital Signs 12/07/23 12:30 Height 5 ft 1 in Weight 161 lb BMI 30.4 BP 122/80 Blood Pressure Location Rt brachial Position Sitting Pulse 107 H Pulse Source Pulse Oximeter Pulse Oximetry (%) 95 Oxygen Delivery Method Room Air Intake Visit Reasons: 6 month fu Allergies No Known Allergies Allergy (Verified 12/07/23 12:31) Medication List - Last Reconciled 12/07/23 by Ambrosio Ash MD alprazolam 0.25 mg (1/2 x 0.5 mg) PO DAILY PRN 90 days bupropion HCl (Wellbutrin SR) 150 mg PO QAM buspirone 15 mg PO BID 30 days levonorgestrel (Mirena) intrauterine levothyroxine 112 mcg PO QAM phentermine 37.5 mg PO DAILY topiramate 25 mg PO DAILY venlafaxine ER 150 mg PO BEDTIME 90 days Tobacco use date assessed: 12/07/23 Dental Screening Dental Screen Date: 12/07/23 Did you have a dental visit in the last 12 months?: No Was dental information given to patient?: Patient has dentist HPI 6 month fu HPI Details Patient is 38-year-old female this is a regular follow-up visit for medication refill History of hypothyroidism, due to thyroidectomy, history of papillary thyroid cancer, currently taking levothyroxine mcg Patient suffers from anxiety and depression She is currently on venlafaxine and Wellbutrin and is doing well Patient also take alprazolam as needed She is going through divorce to go for court hearing that is the day she takes extra alprazolam I see that she is taking Phentermine and Topamax through weight loss provider in [place] Patient says that she has been able to do some weight on this medication and is tolerating it well [facility] Medical History HPV in female Thyroid ca History of COVID-19 History of back problems Anxiety Migraine Mild scoliosis History of kidney stones History of UTI Depression Surgical History Hx of thyroidectomy No pertinent past surgical history Family History Father HTN (hypertension) Mother No problems noted. Brother No problems noted. Brother No problems noted. Son No problems noted. Son No problems noted. Sister No problems noted. Daughter No problems noted. 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 1. Little interest or pleasure in doing things: several days 2. Feeling down, depressed, or hopeless: several days 3. Trouble falling or staying asleep, or sleeping too much: several days 4. Feeling tired or having little energy: several days 5. Poor appetite or overeating: not at all 6. Feeling bad about yourself - or that you are a failure or have let yourself or your family down: several days 7. Trouble concentrating on things, such as reading the newspaper or watching television: not at all 8. Moving or speaking so slowly that other people could have noticed. Or the opposite - being so fidgety or restless that you have been moving around a lot more than usual: not at all 9. Thoughts that you would be better off or of hurting yourself in some way: not at all Total score: 5 Depression Screening Interpretation: Negative Depression Screening Done: Yes 46686 - PHQ-9 Billing: Yes Source: Developed by Drs. Tulio Osborne, Sondra Downing, Ernie Wiley and colleagues, with an educational chayo from [employer]. Thrive Questionnaire Date Thrive assessed: 12/07/23 I am a: Patient What is your living situation today?: I have a steady place to live Within the past 12 months, did the food you bought not last and you didn't have the money to get more?: Never true Within the past 12 months, did you worry whether your food would run out before you got money to buy more?: Never true Do you have trouble paying for medicines?: No Do you have trouble getting transportation to medical appointments?: No Do you have trouble paying your heating and electricity bill?: No Do you have trouble taking care of your child, family member or friend?: No Do you have trouble with day-to-day activities such as bathing, preparing meals, shopping, managing finances, etc.?: No Are you currently unemployed and looking for a job?: No Are you interested in more education?: No Please select the resources that you would like help with: None Currently or been in a relationship where the following occur: no concerns reported THRIVE Score: 0 AUDIT C Alcohol Use Questionnaire (AUDIT-C) 1. How often do you have a drink containing alcohol?: Never 2. How many drinks containing alcohol do you have on a typical day when you are drinking?: 1 or 2 3. How often do you have six or more drinks on one occasion?: Less than monthly Total Score: 1 Score Reviewed/Action Taken: Yes MYESHA-7 AMB Questionnaire MYESHA-7 Date MYESHA - 7 assessed: 12/07/23 Feeling nervous, anxious, or on edge: 1 = Several days Not being able to stop or control worryin = Several days Worrying too much about different things: 1 = Several days Trouble relaxin = Nearly every day Being so restless that it is hard to sit still: 1 = Several days Becoming easily annoyed or irritable: 1 = Several days Feeling afraid as if something awful might happen: 0 = Not at all Total MYESHA-7 score (0-4 normal; 5-9 mild; 10-14 moderate; 15-21 severe): 8 Source: Developed by Drs. Tulio Osborne, Sondra Downing, Ernie Wiley and colleagues, with an educational chayo from [employer]. MYESHA-7 Assessment Billing MYESHA-7 Assessment Tool: MYESHA-7 Assessment 26803 Review of Systems Const Denies chills and Denies fever(s) ENT Denies epistaxis and Denies nasal discharge Card Denies chest pain Resp Denies chest congestion, Denies cough and Denies hemoptysis GI Denies diarrhea and Denies nausea Skin/Breast Denies rash Neuro Reports no additional complaints Psych Reports no additional complaints Endo Reports no additional complaints Physical exam (Primary Care) Vital Signs: Last Vital Signs Pulse 107 H 12/07/23 12:30 BP 122/80 12/07/23 12:30 Pulse Ox 95 12/07/23 12:30 Oxygen Delivery Method Room Air 12/07/23 12:30 BMI result Body Mass Index 30.4 Tobacco/Smoking Status: Tobacco use Status Tobacco use date assessed 12/07/23 12/07/23 12:39 Patient Tobacco Use Status Former Tobacco user 12/07/23 12:30 Tobacco use type Cigarette 12/07/23 12:30 e-Cigarette/Vaping Use Never Used 12/07/23 12:30 PHQ-9: PHQ-9 Score PHQ-9: Total score 5 12/07/23 12:53 Depression Screening Interpretation: Negative Thrive Assessment: Date of Thrive Assessment Date Thrive assessed 12/07/23 12/07/23 12:32 Currently or been in a relationship where the following occur: no concerns reported Const General: cooperative, comfortable and no acute distress Orientation/consciousness: patient oriented x3 HENMT Head: Yes normocephalic Eyes General: appearance normal, both eyes and all related structures Neck Neck: Yes supple Resp Effort & Inspection: normal respiratory effort, no cough and no stridor Cardio Rhythm: regular rhythm Heart sounds: S1 normal heart sound present and S2 normal heart sound present Skin General skin exam: turgor normal Neuro General: patient oriented x3, tone normal and moves all extremities Extrem Right lower extremity: no edema Left lower extremity: no edema Assessment and Plan Assessment & Plan (1) Major depression, recurrent: Code(s): F33.9 - Major depressive disorder, recurrent, unspecified Qualifiers: Active/Remission status: currently active Major depression episode severity: moderate Qualified Code(s): F33.1 - Major depressive disorder, recurrent, moderate (2) Anxiety, generalized: Code(s): F41.1 - Generalized anxiety disorder (3) Obesity due to excess calories: Code(s): E66.09 - Other obesity due to excess calories Qualifiers: Body mass index: BMI 30.0-30.9 Obesity classification: adult class 1 (BMI 30 - 34.9) Serious obesity comorbidity presence: without serious comorbidity Qualified Code(s): E66.09 - Other obesity due to excess calories; Z68.30 - Body mass index [BMI] 30.0-30.9, adult (4) Hypothyroidism (acquired): Code(s): E03.9 - Hypothyroidism, unspecified Plan Patient is 38-year-old female this is a regular follow-up visit for medication refill History of hypothyroidism, secondary to thyroidectomy, history of papillary thyroid cancer, currently taking levothyroxine mcg Patient suffers from anxiety and depression She is currently on venlafaxine and Wellbutrin and is doing well Patient also take alprazolam as needed She is going through divorce to go for court hearing that is the day she takes extra alprazolam I see that she is taking Phentermine and Topamax through weight loss provider in [place] Patient says that she has been able to do some weight on this medication and is tolerating it well Medications: Refilled buspirone 15 mg PO BID 60 tabs 1RF 30 days alprazolam Take half a tablet as needed for anxiety/panic 0.25 mg (1/2 x 0.5 mg) PO DAILY PRN 30 tabs 0RF anxiety 90 days bupropion HCl (Wellbutrin SR) 150 mg PO QAM 90 tabs 0RF venlafaxine ER 150 mg PO BEDTIME 90 caps 0RF 90 days Coding Level of Care Code Est Pt Level 3 (41147) Diagnoses Moderate episode of recurrent major depressive disorder F33.1 Active/Remission status: currently active Major depression episode severity: moderate Anxiety, generalized F41.1 Class 1 obesity due to excess calories without serious comorbidity with body mass index (BMI) of 30.0 to 30.9 in adult E66.09; Z68.30 Body mass index: BMI 30.0-30.9 Obesity classification: adult class 1 (BMI 30 - 34.9) Serious obesity comorbidity presence: without serious comorbidity Hypothyroidism (acquired) E03.9 Additional Codes MYESHA-7 Assessment Billing - MYESHA-7 Assessment Tool: MYESHA-7 Assessment [id number] ([id number])
== END 2023-12-07 12:47 | disposition home or self-care (01) ==
PROVIDERS: PCP Internal Medicine; Visit Provider Internal Medicine
DX: F41.1 Generalized anxiety disorder (principal); F33.1 Major depressive disorder, recurrent, moderate; E66.09 Other obesity due to excess calories; Z68.30 Body mass index [BMI] 30.0-30.9, adult; E03.9 Hypothyroidism, unspecified
CPT/HCPCS: 99213

== ENCOUNTER 2024-01-23 08:47 | Outpatient (AMB) | payer OTHER, SELFPAY ==
[2024-01-23 08:49] VITALS: BP 112/80; PULSE 106; TEMP 36.4; O2SAT 98; BMI 31.0
--- NOTE | 2024-01-23 08:49 | AM.OFFWIN_ITS ---
Intake Vital Signs 01/23/24 08:49 Height 5 ft 1 in Weight 164 lb BMI 31.0 BP 112/80 Blood Pressure Location Lt brachial Position Sitting Pulse 106 H Temp 97.5 F Temp Source Temporal Artery Scan Pulse Oximetry (%) 98 Oxygen Delivery Method Room Air Intake Visit Reasons: EP Cold Symptoms (masked) Intake Note: pt is here today for cold symptoms started 1 week ago Patient Tobacco Use Status: Former Tobacco user Allergies No Known Allergies Allergy (Verified 01/23/24 09:05) Medication List - Last Reconciled 01/23/24 by Evin Irizarry MD alprazolam 0.25 mg (1/2 x 0.5 mg) PO DAILY PRN 90 days bupropion HCl (Wellbutrin SR) 150 mg PO QAM buspirone 15 mg PO BID 30 days levonorgestrel (Mirena) intrauterine levothyroxine 112 mcg PO QAM phentermine 37.5 mg PO DAILY topiramate 25 mg PO DAILY venlafaxine ER 150 mg PO BEDTIME 90 days Do you need a note to return to daycare/school/sports/work: No HPI EP Cold Symptoms (masked) HPI Details Patient presents for a sick visit. Reporting symptoms of sinus congestion, sore throat and difficulty swallowing. Low-grade fever. No family member is sick. No recent travel. Patient reports symptoms of malaise and fatigue. [facility] Medical History HPV in female Thyroid ca History of COVID-19 History of back problems Anxiety Migraine Mild scoliosis History of kidney stones History of UTI Depression Surgical History Hx of thyroidectomy No pertinent past surgical history Family History Father HTN (hypertension) Mother No problems noted. Brother No problems noted. Brother No problems noted. Son No problems noted. Son No problems noted. Sister No problems noted. Daughter No problems noted. 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 Sexual orientation: Straight/Heterosexual Gender identity: Female Cognitive needs: No Hearing needs: No Vision needs: No Female Reproductive History Menstrual Age of Menarche: 10 Physical Exam Vital Signs: Last Vital Signs Temp 97.5 F 01/23/24 08:49 Pulse 106 H 01/23/24 08:49 BP 112/80 01/23/24 08:49 Pulse Ox 98 01/23/24 08:49 Oxygen Delivery Method Room Air 01/23/24 08:49 BMI result Body Mass Index 31.0 Const General: cooperative and healthy appearing Nutritional Appearance: well nourished Orientation/consciousness: patient oriented x3 Limitations: no limitations HEENT Head: Yes normal to inspection Eyes General: appearance normal, both eyes and all related structures Neck Neck: Yes normal visual inspection Chest Chest palpation & inspection: normal palpation of entire chest wall Resp Effort & Inspection: normal respiratory effort Neuro General: patient oriented x3 Assessment & Plan Assessment & Plan (1) Upper respiratory tract infection: Code(s): J06.9 - Acute upper respiratory infection, unspecified Plan: Antibiotics ordered. Increase fluid intake. Tylenol for aches and pains. If symptoms worsen, follow-up here for a recheck. Coding Level of Care Code Est Pt Level 3 (56696) Diagnoses Upper respiratory tract infection J06.9
== END 2024-01-23 09:25 | disposition home or self-care (01) ==
PROVIDERS: PCP Internal Medicine; Visit Provider Internal Medicine
DX: J06.9 Acute upper respiratory infection, unspecified (principal)
CPT/HCPCS: 99213

== ENCOUNTER 2024-03-14 12:29 | Outpatient (AMB) | payer OTHER, SELFPAY ==
--- NOTE | 2024-03-14 12:31 | MHC.PC.OV ---
Vital Signs 03/14/24 12:32 Height 5 ft 1 in Weight 173 lb BMI 32.7 BP 122/80 Blood Pressure Location Rt brachial Position Sitting Pulse 92 Pulse Source Pulse Oximeter Pulse Oximetry (%) 98 Oxygen Delivery Method Room Air Intake Visit Reasons: 9 month fu Allergies No Known Allergies Allergy (Verified 03/14/24 12:33) Medication List - Last Reconciled 03/14/24 by Ambrosio Ash MD alprazolam 0.25 mg (1/2 x 0.5 mg) PO DAILY PRN 90 days bupropion HCl SR (Wellbutrin SR) 150 mg PO QAM buspirone 15 mg PO BID 30 days levonorgestrel (Mirena) intrauterine levothyroxine 100 mcg PO QAM phentermine 37.5 mg PO DAILY topiramate 25 mg PO DAILY venlafaxine ER 150 mg PO BEDTIME 90 days Tobacco use date assessed: 12/07/23 Dental Screening Dental Screen Date: 12/07/23 HPI 9 month fu HPI Details Patient is 38-year-old female this is a regular follow-up visit for medication refill Patient has gained weight since January She was 164 lb and today she is 173 lb However continued to take phentermine and Topamax through weight loss program in [place] History of hypothyroidism, secondary to thyroidectomy, history of papillary thyroid cancer, currently taking levothyroxine 100 mcg Patient suffers from anxiety and depression She is currently on venlafaxine and Wellbutrin and is doing well Patient also take alprazolam as needed She is going through divorce to go for court hearing that is the day she takes extra alprazolam Patient has a new boyfriend now she is feeling happy [facility] Medical History HPV in female Thyroid ca History of COVID-19 History of back problems Anxiety Migraine Mild scoliosis History of kidney stones History of UTI Depression Surgical History Hx of thyroidectomy No pertinent past surgical history Family History Father HTN (hypertension) Mother No problems noted. Brother No problems noted. Brother No problems noted. Son No problems noted. Son No problems noted. Sister No problems noted. Daughter No problems noted. 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 Sexual orientation: Straight/Heterosexual Gender identity: Female Cognitive needs: No Hearing needs: No Vision needs: No Female Reproductive History Menstrual Age of Menarche: 10 Questionnaire Thrive Questionnaire Date Thrive assessed: 12/07/23 I am a: Patient What is your living situation today?: I have a steady place to live Within the past 12 months, did the food you bought not last and you didn't have the money to get more?: Sometimes True Within the past 12 months, did you worry whether your food would run out before you got money to buy more?: Often true Please select the resources that you would like help with: Paying for medicine Currently or been in a relationship where the following occur: no concerns reported THRIVE Score: 2 AUDIT C Alcohol Use Questionnaire (AUDIT-C) 1. How often do you have a drink containing alcohol?: Monthly or less 2. How many drinks containing alcohol do you have on a typical day when you are drinking?: 1 or 2 3. How often do you have six or more drinks on one occasion?: Never Total Score: 1 MYESHA-7 AMB Questionnaire MYESHA-7 Date MYESHA - 7 assessed: 12/07/23 Feeling nervous, anxious, or on edge: 1 = Several days Not being able to stop or control worryin = Not at all Worrying too much about different things: 1 = Several days Trouble relaxin = Several days Being so restless that it is hard to sit still: 1 = Several days Becoming easily annoyed or irritable: 1 = Several days Feeling afraid as if something awful might happen: 0 = Not at all Total MYESHA-7 score (0-4 normal; 5-9 mild; 10-14 moderate; 15-21 severe): 5 Source: Developed by Drs. Tulio Osborne, Sondra Downing, Ernie Wiley and colleagues, with an educational chayo from [employer]. MYESHA-7 Assessment Billing MYESHA-7 Assessment Tool: MYESHA-7 Assessment 31803 Review of Systems Const Denies chills and Denies fever(s) ENT Denies epistaxis and Denies nasal discharge Card Denies chest pain Resp Denies chest congestion, Denies cough and Denies hemoptysis GI Denies diarrhea and Denies nausea Skin/Breast Denies rash Neuro Reports no additional complaints Psych Reports no additional complaints Endo Reports no additional complaints Physical exam (Primary Care) Vital Signs: Last Vital Signs Pulse 92 03/14/24 12:32 BP 122/80 03/14/24 12:32 Pulse Ox 98 03/14/24 12:32 Oxygen Delivery Method Room Air 03/14/24 12:32 BMI result Body Mass Index 32.7 Tobacco/Smoking Status: Tobacco use Status Tobacco use date assessed 12/07/23 03/14/24 12:36 Patient Tobacco Use Status Former Tobacco user 03/14/24 12:36 Tobacco use type Cigarette 03/14/24 12:36 e-Cigarette/Vaping Use Never Used 03/14/24 12:36 Thrive Assessment: Date of Thrive Assessment Date Thrive assessed 12/07/23 03/14/24 12:36 Currently or been in a relationship where the following occur: no concerns reported Const General: cooperative, comfortable and no acute distress Orientation/consciousness: patient oriented x3 HENMT Head: Yes normocephalic Eyes General: appearance normal, both eyes and all related structures Neck Neck: Yes supple Resp Effort & Inspection: normal respiratory effort, no cough and no stridor Cardio Rhythm: regular rhythm Heart sounds: S1 normal heart sound present and S2 normal heart sound present Skin General skin exam: turgor normal Neuro General: patient oriented x3, tone normal and moves all extremities Extrem Right lower extremity: no edema Left lower extremity: no edema Assessment and Plan Assessment & Plan (1) Major depression, recurrent: Code(s): F33.9 - Major depressive disorder, recurrent, unspecified Qualifiers: Active/Remission status: currently active Major depression episode severity: moderate Qualified Code(s): F33.1 - Major depressive disorder, recurrent, moderate (2) Anxiety, generalized: Code(s): F41.1 - Generalized anxiety disorder (3) Obesity due to excess calories: Code(s): E66.09 - Other obesity due to excess calories Qualifiers: Body mass index: BMI 30.0-30.9 Obesity classification: adult class 1 (BMI 30 - 34.9) Serious obesity comorbidity presence: without serious comorbidity Qualified Code(s): E66.09 - Other obesity due to excess calories; Z68.30 - Body mass index [BMI] 30.0-30.9, adult (4) Hypothyroidism (acquired): Code(s): E03.9 - Hypothyroidism, unspecified Plan Patient is 38-year-old female this is a regular follow-up visit for medication refill Patient has gained weight since January She was 164 lb and today she is 173 lb However continued to take phentermine and Topamax through weight loss program in [place] History of hypothyroidism, secondary to thyroidectomy, history of papillary thyroid cancer, currently taking levothyroxine 100 mcg Patient suffers from anxiety and depression She is currently on venlafaxine and Wellbutrin and is doing well Patient also take alprazolam as needed She is going through divorce to go for court hearing that is the day she takes extra alprazolam Patient has a new boyfriend now she is feeling happy Medications: Refilled venlafaxine ER 150 mg PO BEDTIME 90 days 90 caps 0RF alprazolam Take half a tablet as needed for anxiety/panic 0.25 mg (1/2 x 0.5 mg) PO DAILY 90 days PRN 30 tabs 0RF anxiety bupropion HCl SR (Wellbutrin SR) 150 mg PO QAM 90 tabs 0RF buspirone 15 mg PO BID 30 days 60 tabs 1RF Coding Level of Care Code Est Pt Level 3 (25628) Diagnoses Moderate episode of recurrent major depressive disorder F33.1 Active/Remission status: currently active Major depression episode severity: moderate Anxiety, generalized F41.1 Class 1 obesity due to excess calories without serious comorbidity with body mass index (BMI) of 30.0 to 30.9 in adult E66.09; Z68.30 Body mass index: BMI 30.0-30.9 Obesity classification: adult class 1 (BMI 30 - 34.9) Serious obesity comorbidity presence: without serious comorbidity Hypothyroidism (acquired) E03.9 Additional Codes MYESHA-7 Assessment Billing - MYESHA-7 Assessment Tool: MYESHA-7 Assessment 16770 ([id number])
[2024-03-14 12:32] VITALS: BP 122/80; PULSE 92; O2SAT 98; BMI 32.7
== END 2024-03-14 16:11 | disposition home or self-care (01) ==
PROVIDERS: PCP Internal Medicine; Visit Provider Internal Medicine
DX: E03.9 Hypothyroidism, unspecified (principal); F33.1 Major depressive disorder, recurrent, moderate; E66.09 Other obesity due to excess calories; Z68.30 Body mass index [BMI] 30.0-30.9, adult; F41.1 Generalized anxiety disorder
CPT/HCPCS: 99213

== ENCOUNTER 2024-05-01 16:17 | Outpatient (AMB) | payer OTHER, SELFPAY ==
[2024-05-01 16:19] VITALS: BP 118/72; PULSE 79; TEMP 36.7; O2SAT 98; BMI 33.1
--- NOTE | 2024-05-01 16:19 | MHC.OFFWIV ---
Intake Vital Signs 05/01/24 16:19 Height 5 ft 1 in Weight 175 lb 2 oz BMI 33.1 BP 118/72 Blood Pressure Location Rt brachial Position Sitting Pulse 79 Pulse Source Pulse Oximeter Temp 98.1 F Temp Source Oral Pulse Oximetry (%) 98 Intake Visit Reasons: EP UTI Intake Note: pt is here for possible uti Patient Tobacco Use Status: Former Tobacco user Allergies No Known Allergies Allergy (Verified 05/01/24 16:20) Do you need a note to return to daycare/school/sports/work: No HPI HPI Comments History of Present Illness Details 38 y/o female patient who presents to walk in clinic with c/o urinary symptoms. Pt c/o urinary frequency, urgency and lower abdominal/back pain x 2 weeks. Denies Vaginal symptoms. Denies bowel symptoms. PFSH Medical History HPV in female Thyroid ca History of COVID-19 History of back problems Anxiety Migraine Mild scoliosis History of kidney stones History of UTI Depression Surgical History Hx of thyroidectomy No pertinent past surgical history Family History Father HTN (hypertension) Mother No problems noted. Brother No problems noted. Brother No problems noted. Son No problems noted. Son No problems noted. Sister No problems noted. Daughter No problems noted. 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 [employer] Sexual orientation: Straight/Heterosexual Gender identity: Female Cognitive needs: No Hearing needs: No Vision needs: No Female Reproductive History Menstrual Age of Menarche: 10 Review of Systems Const All systems reviewed & are unremarkable except as noted in HPI and below Physical Exam Vital Signs: Last Vital Signs Temp 98.1 F 05/01/24 16:19 Pulse 79 05/01/24 16:19 BP 118/72 05/01/24 16:19 Pulse Ox 98 05/01/24 16:19 BMI result Body Mass Index 33.1 Const General: comfortable and no acute distress Nutritional Appearance: obese Orientation/consciousness: patient oriented x3 General: Yes no CVA tenderness Back/Spine/Pelvis Back: no CVA tenderness Neuro General: patient oriented x3, gait normal and moves all extremities Psych Speech and movement: Normal speech and movement present Results AMB Urinalysis, Automated UA Leukoctes 15 Phoebe/uL Last Edit by Asaf Rodriguez CMA on 05/01/24 16:30 UA Nitrite Positive Last Edit by Asaf Rodriguez CMA on 05/01/24 16:30 UA Urobilinogen 0.2 mg/dL Last Edit by Asaf Rodriguez CMA on 05/01/24 16:30 UA Protein 0 mg/dL Last Edit by Asaf Rodriguez CMA on 05/01/24 16:30 UA pH 6.5 Last Edit by Asaf Rodriguez CMA on 05/01/24 16:30 UA Blood 10 Maciej/uL Last Edit by Asaf Rodriguez CMA on 05/01/24 16:30 UA Specific [place] 1.015 Last Edit by Asaf Rodriguez CMA on 05/01/24 16:30 UA Ketone Negative Last Edit by Asaf Rodriguez CMA on 05/01/24 16:30 UA Bilirubin 0 mg/dL Last Edit by Asaf Rodriguez CMA on 05/01/24 16:30 UA Glucose 0 mg/dL Last Edit by Asaf Rodriguez CMA on 05/01/24 16:30 Results Reviewed Results Reviewed: Laboratory Last Values Urine pH (Auto) 6.5 05/01/24 16:29 Specific [place] (Auto) 1.015 05/01/24 16:29 Urine Protein (Auto) 0 mg/dL 05/01/24 16:29 Glucose (UA)(Auto) 0 mg/dL 05/01/24 16: Urine Ketones (Auto) Negative 05/01/24 16: Urine Blood (Auto) 10 Maciej/uL 05/01/24 16:29 Urine Nitrite (Auto) Positive 05/01/24 16:29 Urine Bilirubin (Auto) 0 mg/dL 05/01/24 16: Urine Urobilinogen (Auto) 0.2 mg/dL 05/01/24 16:29 Leukocyte Esterase (Auto) 15 Phoebe/uL 05/01/24 16:29 Assessment & Plan Assessment & Plan (1) Urinary tract infection symptoms: Code(s): R39.9 - Unspecified symptoms and signs involving the genitourinary system Plan: Drink plenty of water Take medicine as directed May take Acetaminophen for pain relief RTC if symptoms worse. Orders: Orders AMB Urinalysis Automated Today Z13.9 - Encounter for screening, unspecified Medications: New nitrofurantoin monohyd/m-cryst 100 mg (Macrobid) must administer with a meal/food 100 mg PO Q12H 7 days 14 caps 0RF R39.9 - Unspecified symptoms and signs involving the genitourinary system Coding Level of Care Code Est Pt Level 3 (01081) Diagnoses Urinary tract infection symptoms R39.9 Time Spent (min) 15
== END 2024-05-01 16:45 | disposition home or self-care (01) ==
PROVIDERS: PCP Internal Medicine; Visit Provider Nurse Practitioner Family
DX: R39.9 Unspecified symptoms and signs involving the genitourinary system (principal)
CPT/HCPCS: 81003; 99213

== ENCOUNTER 2024-05-22 | Outpatient (REF) | payer OTHER, SELFPAY | END 2024-05-22 00:01 | disposition home or self-care (01) | LOC: HO.HMGCLNP | PROVIDERS: Visit Provider Nurse Practitioner Family | DX: N30.00 Acute cystitis without hematuria (principal) | CPT/HCPCS: 87086; 87088; 87186 ==

== ENCOUNTER 2024-05-22 16:06 | Outpatient (AMB) | payer OTHER, SELFPAY ==
--- NOTE | 2024-05-22 16:15 | AM.OFFWIN_ITS ---
Intake Vital Signs 05/22/24 16:16 Height 5 ft 1 in Weight 172 lb BMI 32.5 BP 114/62 Blood Pressure Location Rt brachial Position Sitting Pulse 62 Pulse Source Pulse Oximeter Temp 98.2 F Temp Source Oral Pulse Oximetry (%) 97 Oxygen Delivery Method Room Air Intake Visit Reasons: EP ?UTI Intake Note: pt c/o urinary frequency, bladder and kidney pain, foul odor. Started Sunday last week Patient Tobacco Use Status: Former Tobacco user Allergies No Known Allergies Allergy (Verified 05/22/24 16:16) Do you need a note to return to daycare/school/sports/work: No HPI HPI Comments History of Present Illness Details 38 y/o female patient who presents to [facility] walk in clinic with c/o Urinary symptoms. Pt reports urgency and frequency. She was seen last by me April 2024 and treated with Macrobid. Pt reports that symptoms went away completely for few weeks, but returned 2 days ago. Denies fevers, chills, nausea or vomiting. Pt has a scheduled appointment with [facility] [employer] Sunday. Denies vaginal symptoms. Sexually active with 1 male partner - no protection. Pt has IUD PFSH Medical History HPV in female Thyroid ca History of COVID-19 History of back problems Anxiety Migraine Mild scoliosis History of kidney stones History of UTI Depression Surgical History Hx of thyroidectomy No pertinent past surgical history Family History Father HTN (hypertension) Mother No problems noted. Brother No problems noted. Brother No problems noted. Son No problems noted. Son No problems noted. Sister No problems noted. Daughter No problems noted. 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 Sexual orientation: Straight/Heterosexual Gender identity: Female Cognitive needs: No Hearing needs: No Vision needs: No Female Reproductive History Menstrual Age of Menarche: 10 Review of Systems Const All systems reviewed & are unremarkable except as noted in HPI and below Physical Exam Vital Signs: Last Vital Signs Temp 98.2 F 05/22/24 16:16 Pulse 62 05/22/24 16:16 BP 114/62 05/22/24 16:16 Pulse Ox 97 05/22/24 16:16 Oxygen Delivery Method Room Air 05/22/24 16:16 BMI result Body Mass Index 32.5 Const General: comfortable and no acute distress Nutritional Appearance: obese Orientation/consciousness: patient oriented x3 Other: Declined Pelvic/vaginal examination today. Pt has an appointment with [facility] [employer] Sunday for routine screening. General: Yes no CVA tenderness Back/Spine/Pelvis Back: no CVA tenderness Neuro General: patient oriented x3, gait normal and moves all extremities Psych Speech and movement: Normal speech and movement present Results AMB Urinalysis, Automated UA Leukoctes 15 [place]/uL Last Edit by Teodoro Carrillo CMA on 05/22/24 16:22 UA Nitrite Negative Last Edit by Teodoro Carrillo CMA on 05/22/24 16:22 UA Urobilinogen 0.2 mg/dL Last Edit by Teodoro Carrillo CMA on 05/22/24 16:22 UA Protein 15 mg/dL Last Edit by Teodoro Carrillo CMA on 05/22/24 16:22 UA pH 6.0 Last Edit by Teodoro Carrillo CMA on 05/22/24 16:22 UA Blood 25 Maciej/uL Last Edit by Teodoro Carrillo CMA on 05/22/24 16:22 UA Specific [place] 1.020 Last Edit by Teodoro Carrillo CMA on 05/22/24 16:22 UA Ketone Negative Last Edit by Teodoro Carrillo CMA on 05/22/24 16:22 UA Bilirubin 0 mg/dL Last Edit by Teodoro Carrillo CMA on 05/22/24 16:22 UA Glucose 0 mg/dL Last Edit by Teodoro Carrillo CMA on 05/22/24 16:22 Results Reviewed Results Reviewed: Laboratory Last Values Urine pH (Auto) 6.0 05/22/24 16:21 Specific [place] (Auto) 1.020 05/22/24 16:21 Urine Protein (Auto) 15 mg/dL 05/22/24 16:21 Glucose (UA)(Auto) 0 mg/dL 05/22/24 16:21 Urine Ketones (Auto) Negative 05/22/24 16:21 Urine Blood (Auto) 25 Maciej/uL 05/22/24 16:21 Urine Nitrite (Auto) Negative 05/22/24 16:21 Urine Bilirubin (Auto) 0 mg/dL 05/22/24 16:21 Urine Urobilinogen (Auto) 0.2 mg/dL 05/22/24 16:21 Leukocyte Esterase (Auto) 15 Phoebe/uL 05/22/24 16:21 Assessment & Plan Assessment & Plan (1) Urinary tract infection symptoms: Code(s): R39.9 - Unspecified symptoms and signs involving the genitourinary system Plan: Ordered culture and sensitivity Ordered Bactrim Pt to f/u with [employer] as scheduled to r/o Vaginal infections. Hydrate well with water Void after before and after intercourse. Advise Practice safe sex Orders: Orders Urine Culture Today N30.00 - Acute cystitis without hematuria AMB Urinalysis Automated Today Z13.9 - Encounter for screening, unspecified Medications: New sulfamethoxazole-trimethoprim 800-160 mg (Bactrim DS) 1 tab PO Q12H 3 days 6 tabs 0RF R39.9 - Unspecified symptoms and signs involving the genitourinary system Coding Level of Care Code Est Pt Level 3 (21609) Diagnoses Urinary tract infection symptoms R39.9 Time Spent (min) 15
[2024-05-22 16:16] VITALS: BP 114/62; PULSE 62; TEMP 36.8; O2SAT 97; BMI 32.5
== END 2024-05-22 16:56 | disposition home or self-care (01) ==
PROVIDERS: PCP Internal Medicine; Visit Provider Nurse Practitioner Family
DX: N30.00 Acute cystitis without hematuria (principal)
CPT/HCPCS: 81003; 99213

== ENCOUNTER 2024-05-26 10:06 | Outpatient (AMB) | payer OTHER, SELFPAY ==
--- NOTE | 2024-05-26 10:15 | A.OFFVIS_ITS ---
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 No complaints. Last Pap/HPV was negative in 05/13 [facility] Medical History (Updated 05/26/24 @ 10:21 by Julio Cesar Pederson MD) HPV in female Thyroid ca History of COVID-19 History of back problems Anxiety Migraine Mild scoliosis History of kidney stones History of UTI Depression Surgical History Hx of thyroidectomy No pertinent past surgical history Family History Father HTN (hypertension) Mother No problems noted. Brother No problems noted. Brother No problems noted. Son No problems noted. Son No problems noted. Sister No problems noted. Daughter No problems noted. 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 Sexual orientation: Straight/Heterosexual Gender identity: Female Cognitive needs: No Hearing needs: No Vision needs: No Female Reproductive History Menstrual Age of Menarche: 10 control method: progestin IUCD Date of last pap smear: 05/01/23 Review of Systems Const All systems reviewed & are unremarkable except as noted in HPI and below Card Reports as per HPI Resp Reports as per HPI GI Reports as per HPI and Reports no additional complaints Reports as per HPI Physical Exam Vital Signs: BMI result Body Mass Index 32.5 Const General: cooperative, healthy appearing and comfortable Chest Chest palpation & inspection: normal inspection of the chest and normal palpation of entire chest wall Breast/axilla inspection: normal inspection of the breasts and normal inspection of the axillae Breast/axilla palpation: normal palpation of the breasts, normal palpation of the axillae and no axillary lymphadenopathy Resp Effort & Inspection: normal respiratory effort Auscultation: clear to auscultation bilaterally Percussion: percussion normal Cardio Palpation: normal PMI Rate: regular rate Rhythm: regular rhythm Heart sounds: no murmurs and no rubs Peripheral pulses: Peripheral pulses 2+ throughout GI Inspection: Yes normal to inspection Palpation (GI): Soft to palpation, nontender, no guarding, not rigid and No hepatosplenomegaly present Percussion: Yes normal to percussion Auscultation: normal bowel sounds Rectal Exam - Female: deferred General: Yes bladder normal to palpation External Female Exam: No lesion Speculum Exam - Vagina: normal appearance of the vagina, normal palpation, normal vaginal discharge and not erythematous Speculum Exam - Cervix: normal appearance of the cervix and normal palpation Bimanual exam- vagina & uterus: normal bimanual exam, normal palpation, uterine size normal, bladder normal to palpation, consistency normal and normal palpation Bimanual Exam- Adnexa, other: normal adnexae, no masses and no tenderness Assessment & Plan Assessment & Plan (1) Well woman exam: Comment: HPV 6/7 positive in September 2020, and in 01/10 negative Pap/HPV positive, colpo biopsy negative, 05/13 co testing negative Code(s): Z01.419 - Encounter for gynecological examination (general) (routine) without abnormal findings Category: Medical Plan: Cotesting not indicated this year. Mammogram ordered. Counseled the patient about the recommended dietary allowance of 1000 mg of Calcium & 600 IU of vitamin D. The patient was instructed to perform monthly self-breast exams and to schedule an annual exam in a year; All questions answered and the patient verbalized understanding. Instructed the patient to schedule annual exam in a year Orders: Orders MM tomosynthesis screening BI Today Z12.31 - Encounter for screening mammogram for malignant neoplasm of breast Coding Level of Care Code Est Pt Prev Care 18-39y(52013) Diagnoses Well woman exam Z01.419
[2024-05-26 10:16] VITALS: BP 110/70; BMI 32.5
== END 2024-05-26 10:30 | disposition home or self-care (01) ==
LOC: HO.HWS 10:06
PROVIDERS: PCP Internal Medicine; Visit Provider Obstetrics & Gynecology
DX: Z01.419 Encounter for gynecological examination (general) (routine) without abnormal findings (principal)
CPT/HCPCS: 99395

== ENCOUNTER → 2024-05-26 10:06 | Outpatient (BNVA) | payer OTHER, SELFPAY | PROVIDERS: PCP Internal Medicine; Visit Provider Obstetrics & Gynecology | DX: Z01.419 Encounter for gynecological examination (general) (routine) without abnormal findings (principal) | CPT/HCPCS: 99395 ==

== ENCOUNTER 2024-06-06 09:59 | Outpatient (AMB) | payer OTHER, SELFPAY ==
[2024-06-06 10:04] VITALS: BP 126/88; PULSE 84; O2SAT 96; BMI 32.1
--- NOTE | 2024-06-06 10:04 | A.OFFPC_ITS ---
Vital Signs 06/06/24 10:04 Height 5 ft 1 in Weight 170 lb BMI 32.1 BP 126/88 Blood Pressure Location Rt brachial Position Sitting Pulse 84 Pulse Source Pulse Oximeter Pulse Oximetry (%) 96 Oxygen Delivery Method Room Air Intake Visit Reasons: PE Allergies No Known Allergies Allergy (Verified 06/06/24 10:06) Medication List - Last Reconciled 06/06/24 by Ambrosio Ash MD alprazolam 0.25 mg (1/2 x 0.5 mg) PO DAILY PRN 90 days bupropion HCl SR (Wellbutrin SR) 150 mg PO QAM buspirone 15 mg PO BID 30 days levonorgestrel (Mirena) intrauterine levothyroxine 100 mcg PO QAM venlafaxine ER 150 mg PO BEDTIME 90 days Tobacco use date assessed: 06/06/24 Dental Screening Dental Screen Date: 06/06/24 Did you have a dental visit in the last 12 months?: Yes Did you have a dental problem in the last 6 months where you did not have access to dental care?: No Was dental information given to patient?: Patient has dentist HPI PE HPI Details Patient is 38 year old female came in today for Physical exam Complaining of paresthesia like feeling left forearm starting from elbow down 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 I have ordered EMG nerve conduction study to further evaluate she is doing well with anxiety meds Patient do not need refill on alprazolam at this time [place] [facility] [place] she is seeing Endo at [facility], imaging is done every time she goes there every year lab order placed to be done fasting She has inflammation at the base of her fingernails, patient have a nervous habit of feeling skin in that area f/u 3 M [facility] Medical History HPV in female Thyroid ca History of COVID-19 History of back problems Anxiety Migraine Mild scoliosis History of kidney stones History of UTI Depression Surgical History Hx of thyroidectomy No pertinent past surgical history Family History Father HTN (hypertension) Mother No problems noted. Brother No problems noted. Brother No problems noted. Son No problems noted. Son No problems noted. Sister No problems noted. Daughter No problems noted. 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 1. Little interest or pleasure in doing things: several days 2. Feeling down, depressed, or hopeless: several days 3. Trouble falling or staying asleep, or sleeping too much: several days 4. Feeling tired or having little energy: several days 5. Poor appetite or overeating: not at all 6. Feeling bad about yourself - or that you are a failure or have let yourself or your family down: several days 7. Trouble concentrating on things, such as reading the newspaper or watching television: nearly every day 8. Moving or speaking so slowly that other people could have noticed. Or the opposite - being so fidgety or restless that you have been moving around a lot more than usual: not at all 9. Thoughts that you would be better off or of hurting yourself in some way: not at all Total score: 8 Depression Screening Interpretation: Negative Depression Screening Done: Yes 25169 - PHQ-9 Billing: Yes Source: Developed by Drs. Tulio Osborne, Sondra Downing, Ernie Wiley and colleagues, with an educational chayo from [employer]. Thrive Questionnaire Date Thrive assessed: 06/06/24 I am a: Patient What is your living situation today?: I have a steady place to live Within the past 12 months, did the food you bought not last and you didn't have the money to get more?: Never true Within the past 12 months, did you worry whether your food would run out before you got money to buy more?: Sometimes True Do you have trouble paying for medicines?: No Do you have trouble getting transportation to medical appointments?: No Do you have trouble paying your heating and electricity bill?: No Do you have trouble taking care of your child, family member or friend?: No Do you have trouble with day-to-day activities such as bathing, preparing meals, shopping, managing finances, etc.?: No Are you currently unemployed and looking for a job?: No Are you interested in more education?: No Please select the resources that you would like help with: None Currently or been in a relationship where the following occur: No concerns reported THRIVE Score: 1 AUDIT C Alcohol Use Questionnaire (AUDIT-C) 1. How often do you have a drink containing alcohol?: Monthly or less 2. How many drinks containing alcohol do you have on a typical day when you are drinking?: 1 or 2 3. How often do you have six or more drinks on one occasion?: Less than monthly Total Score: 2 Score Reviewed/Action Taken: Yes MYESHA-7 AMB Questionnaire MYESHA-7 Date MYESHA - 7 assessed: 06/06/24 Feeling nervous, anxious, or on edge: 1 = Several days Not being able to stop or control worryin = Not at all Worrying too much about different things: 1 = Several days Trouble relaxin = Several days Being so restless that it is hard to sit still: 1 = Several days Becoming easily annoyed or irritable: 1 = Several days Feeling afraid as if something awful might happen: 0 = Not at all Total MYESHA-7 score (0-4 normal; 5-9 mild; 10-14 moderate; 15-21 severe): 5 Source: Developed by Drs. Tulio Osborne, Sondra Downing, Ernie Wiley and colleagues, with an educational chayo from [employer]. MYESHA-7 Assessment Billing MYESHA-7 Assessment Tool: MYESHA-7 Assessment 65292 Review of Systems Const Denies chills, Denies fever(s) and Denies headache(s) Eyes Denies blurry vision ENT Denies headache(s), Denies nasal discharge, Denies nasal obstruction, Denies odynophagia and Denies sinus pain Card Denies chest pain at rest and Denies chest pain with activity Resp Denies cough and Denies hemoptysis GI Denies diarrhea, Denies odynophagia, Denies vomiting and Denies hematemesis Reports as per HPI Musc Denies abnormal gait Skin/Breast Reports as per HPI Neuro Denies Neuro-related abnormal movements, Denies Abnormal speech present, Denies abnormal gait, Denies headache(s) and Denies Sensory deficit (Neuro) Psych Denies mood swings and Denies paranoia Endo Reports as per HPI Eric/Lymph Reports as per HPI Aller/Immun Reports as per HPI Physical exam (Primary Care) Vital Signs: Last Vital Signs Pulse 84 06/06/24 10:04 BP 126/88 06/06/24 10:04 Pulse Ox 96 06/06/24 10:04 Oxygen Delivery Method Room Air 06/06/24 10:04 BMI result Body Mass Index 32.1 Tobacco/Smoking Status: Tobacco use Status Tobacco use date assessed 06/06/24 06/06/24 10:07 Patient Tobacco Use Status Former Tobacco user 06/06/24 10:07 Tobacco use type Cigarette 06/06/24 10:07 e-Cigarette/Vaping Use Never Used 06/06/24 10:07 PHQ-9: PHQ-9 Score PHQ-9: Total score 8 06/06/24 10:14 Depression Screening Interpretation: Negative Thrive Assessment: Date of Thrive Assessment Date Thrive assessed 06/06/24 06/06/24 10:07 Currently or been in a relationship where the following occur: No concerns reported Const General: cooperative, comfortable and no acute distress Orientation/consciousness: patient oriented x3 HENMT Head: Yes normocephalic and Yes atraumatic Eyes General: appearance normal, both eyes and all related structures Pupils: Equal, round and reactive pupils present EOM: EOMs intact bilaterally Neck Neck: Yes supple and No lymphadenopathy Thyroid: Thyroid normal Lymphatic: no lymphadenopathy noted Resp Effort & Inspection: normal respiratory effort and able to speak in complete sentences Auscultation: clear to auscultation bilaterally Cardio Heart sounds: S1 normal heart sound present and S2 normal heart sound present GI Palpation (GI): Soft to palpation and nontender Auscultation: normal bowel sounds General: Yes no CVA tenderness Back/Spine/Pelvis Back: no CVA tenderness Skin General skin exam: elasticity normal and turgor normal Neuro General: patient oriented x3 and gait normal Cranial nerves: Yes Equal, round and reactive pupils present Speech: No Abnormal speech present Sensory Exam: No Sensory deficit (Neuro) Coordination: tandem gait normal and Romberg test negative Extrem General: Yes normal exam except as noted and No edema Assessment and Plan Assessment & Plan (1) Encounter for general adult medical examination with abnormal findings: Code(s): Z00.01 - Encounter for general adult medical examination with abnormal findings (2) Paresthesia of left upper extremity: Code(s): R20.2 - Paresthesia of skin (3) Obesity due to excess calories: Code(s): E66.09 - Other obesity due to excess calories Qualifiers: Body mass index: BMI 32.0-32.9 Obesity classification: adult class 1 (BMI 30 - 34.9) Serious obesity comorbidity presence: without serious comorbidity Qualified Code(s): E66.09 - Other obesity due to excess calories; Z68.32 - Body mass index [BMI] 32.0-32.9, adult (4) Hypothyroidism (acquired): Code(s): E03.9 - Hypothyroidism, unspecified (5) Anxiety, generalized: Code(s): F41.1 - Generalized anxiety disorder (6) Major depression, recurrent: Code(s): F33.9 - Major depressive disorder, recurrent, unspecified Qualifiers: Active/Remission status: currently active Major depression episode severity: moderate Qualified Code(s): F33.1 - Major depressive disorder, recurrent, moderate Plan Patient is 38 year old female came in today for Physical exam Complaining of paresthesia like feeling left forearm starting from elbow down 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 I have ordered EMG nerve conduction study to further evaluate she is doing well with anxiety meds Patient do not need refill on alprazolam at this time [place] [facility] [place] them she is seeing Endo at [facility], imaging is done every time she goes there every year lab order placed to be done fasting f/u 3 M Orders: Orders 2 TSH reflex Free T4 Today E03.9 - Hypothyroidism, unspecified, E66.09 - Other obesity due to excess calories, F33.1 - Major depressive disorder, recurrent, moderate, F41.1 - Generalized anxiety disorder, Z00.01 - Encounter for general adult medical examination with abnormal findings Lipid Panel Today E03.9 - Hypothyroidism, unspecified, E66.09 - Other obesity due to excess calories, F33.1 - Major depressive disorder, recurrent, moderate, F41.1 - Generalized anxiety disorder, Z00.01 - Encounter for general adult medical examination with abnormal findings NE nerve conduction velocity Today R20.2 - Paresthesia of skin NE electromyogram (EMG) Today R20.2 - Paresthesia of skin Complete Blood Count Auto Diff Today E03.9 - Hypothyroidism, unspecified, E66.09 - Other obesity due to excess calories, F33.1 - Major depressive disorder, recurrent, moderate, F41.1 - Generalized anxiety disorder, Z00.01 - Encounter for general adult medical examination with abnormal findings Comprehensive [place]. Panel Fast Today E03.9 - Hypothyroidism, unspecified, E66.09 - Other obesity due to excess calories, F33.1 - Major depressive disorder, recurrent, moderate, F41.1 - Generalized anxiety disorder, Z00.01 - Encounter for general adult medical examination with abnormal findings Coding Level of Care Code Est Pt Level 3 (54745) New Pt Prev Care 18-39yr([id number] Diagnoses Encounter for general adult medical examination with abnormal findings Z00.01 Paresthesia of left upper extremity R20.2 Class 1 obesity due to excess calories without serious comorbidity with body mass index (BMI) of 32.0 to 32.9 in adult E66.09; Z68.32 Body mass index: BMI 32.0-32.9 Obesity classification: adult class 1 (BMI 30 - 34.9) Serious obesity comorbidity presence: without serious comorbidity Hypothyroidism (acquired) E03.9 Anxiety, generalized F41.1 Moderate episode of recurrent major depressive disorder F33.1 Active/Remission status: currently active Major depression episode severity: moderate Additional Codes MYESHA-7 Assessment Billing - MYESHA-7 Assessment Tool: MYESHA-7 Assessment 75125 ([id number])
== END 2024-06-06 10:31 | disposition home or self-care (01) ==
PROVIDERS: PCP Internal Medicine; Visit Provider Internal Medicine
DX: Z00.01 Encounter for general adult medical examination with abnormal findings (principal); R20.2 Paresthesia of skin; E66.09 Other obesity due to excess calories; Z68.32 Body mass index [BMI] 32.0-32.9, adult; F33.1 Major depressive disorder, recurrent, moderate; E03.9 Hypothyroidism, unspecified; F41.1 Generalized anxiety disorder
CPT/HCPCS: 99213; 99395

== ENCOUNTER → 2024-06-19 10:15 | Outpatient (BNV) | payer OTHER, SELFPAY | PROVIDERS: PCP Internal Medicine; Visit Provider Internal Medicine | DX: Z12.31 Encounter for screening mammogram for malignant neoplasm of breast (principal) | CPT/HCPCS: 77063; 77067 ==

== ENCOUNTER 2024-06-19 10:16 | Outpatient (REF) | payer OTHER, SELFPAY ==
--- NOTE | ~2024-06-19 | MM_ITS ---
EXAMINATION: MM SCREENING DIGITAL BREAST TOMOSYNTHESIS, BILATERAL CLINICAL INFORMATION: Screening. Asymptomatic. COMPARISON: Mammography: Baseline. TECHNIQUE: Digital breast tomosynthesis is performed in both the craniocaudal and mediolateral oblique views along with computer-aided detection (CAD). Synthesized 2D images are generated from the tomosynthesis. FINDINGS: There are scattered areas of fibroglandular density (ACR BI-RADS breast composition Category b). Bilateral several oval masses consistent with benign fibrocystic changes. Circumscribed elements in the upper outer right breast posterior depth consistent with intramammary lymph node. There are no significant masses, abnormal calcifications, or other abnormalities. MM/MM tomosynthesis screening BI IMPRESSION: No mammographic evidence of malignancy. ASSESSMENT: BI-RADS BI-RADS 2 - Benign Findings RECOMMENDATION: Routine annual mammography screening. 1 year F/U This examination should not preclude the clinical evaluation of a suspicious palpable abnormality. This patient's information was entered into a reminder system with a target due date for their next mammogram. Electronically signed by: Monse Schreiber DO 07/11/2024 09:15 PM EDT
== END 2024-06-19 10:17 | disposition home or self-care (01) ==
LOC: HO.MAMMO 10:16
PROVIDERS: PCP Internal Medicine; Visit Provider Obstetrics & Gynecology
DX: Z12.31 Encounter for screening mammogram for malignant neoplasm of breast (principal)
CPT/HCPCS: 77063; 77067

== ENCOUNTER 2024-07-01 10:10 | Outpatient (REF) | payer OTHER, SELFPAY ==
--- NOTE | 2024-07-01 10:12 | EMG_ITS ---
Left median and ulnar motor and sensory studies were performed. Left radial sensory study was performed. Left median and lateral antecubital brachial sensory studies were performed and paraspinal muscles were tested with a needle. IMPRESSION: Mild left ulnar neuropathy across cubital tunnel. MD MIRELLA Moore/MONSE / [id number]
== END 2024-07-01 10:11 | disposition home or self-care (01) ==
LOC: HO.NEURO 10:10
PROVIDERS: PCP Internal Medicine; Visit Provider Internal Medicine
DX: R20.2 Paresthesia of skin (principal)
CPT/HCPCS: 95886; 95910

== ENCOUNTER → 2024-07-01 10:36 | Outpatient (RCR) | payer OTHER, SELFPAY ==
[2021-07-08 13:13] VITALS: BP 129/83; PULSE 79; RESP 20; TEMP 36.6; O2SAT 99; BMI 28.9
--- NOTE | 2021-07-08 13:38 | P.CNHO_ITS ---
Subjective - Subjective Chief complaint: Consult for: Papillary thyroid carcinoma. Patient: new to practice Consult date: 07/08/21 Requesting Physician: Mihir. Primary Care Provider: XIOMARA Laboy Medical Summary: DIAGNOSIS: Papillary thyroid carcinoma. HPI - Consult Narrative Reason for consult: Consult for: Papillary thyroid carcinoma. Narrative: Michelle Oseguera is a pleasant 36 year old lady, who had a routine physical exam by her primary. She was noted to have enlarged thyroid gland. Ultrasound of the thyroid from 06/14: 1.2 x 0.6 x 0.6 cm highly suspicious-appearing nodule in the left lobe and abnormal appearing left cervical level 2 lymph nodes. Fine-needle aspiration of left thyroid nodule recommended. She had the FNA done on 06/29. Pathology revealed: Left upper pole: Positive for malignancy, ([place] category .) Papillary thyroid carcinoma. Left neck lymph node: Suspicious for malignancy. ROS: Over the past couple of months she had felt very fatigued. Denies fever nor chills. No night sweats nor hot flashes. Appetite is good. She has been eating healthy trying to lose weight. She did lose some. However, she could smoking and gained a bit. She has had migraine headaches. Denies chest pain or trouble breathing. No abdominal pain nausea vomiting heartburn indigestion. Bowels are working without any gross blood in it. Denies urinary complaints. She has Mirena IUD so does not get a period. She has neck pain. Since the biopsy she has noted tightness in the neck muscles. Denies any focal weakness. Does have history of depression. She has pruritus over the neck and shoulder and arms. Past medical history: 1. Anxiety. 2. UTIs. Past surgical history: Had kidney stones removed. Family history: Positive for heart problems and diabetes. A paternal grandma had stomach cancer. 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 She is not . She has 3 children. She used to smoke a pack-a-day recently quit. She drinks socially. Review of Systems - Constitutional Reports system reviewed and no additional complaints, except as documented, Reports lack of energy, Reports malaise, Reports weight loss - Eyes Reports system reviewed and no additional complaints, except as documented - ENT Reports system reviewed and no additional complaints, except as documented - Cardiovascular Reports system reviewed and no additional complaints, except as documented - Respiratory Reports no additional respiratory complaints - Gastrointestinal Reports system reviewed and no additional complaints, except as documented - Genitourinary Reports no additional female genitourinary complaints - Musculoskeletal Reports system reviewed and no additional complaints, except as documented - Integumentary/Breasts Skin/Breast: Reports no additional skin complaints - Neurologic Reports system reviewed and no additional complaints, except as documented - Psychiatric Reports system reviewed and no additional complaints, except as documented - Endocrine Reports no additional endocrine complaints - Hematologic/Lymphatic Reports system reviewed and no additional complaints, except as documented - Allergic/Immunologic Reports system reviewed and no additional complaints, except as documented Oncology Screenings - ECOG Performance Status ECOG Performance Status: 0 [facility] Medical History: Medical History (Last Reviewed 07/08/21 @ 13:14 by Hunter Loja) Anxiety Depression History of back problems History of COVID-19 History of kidney stones History of UTI Migraine Mild scoliosis Functional capacity: independent ambulation Patient : No Family History: Family History (Last Reviewed 07/08/21 @ 13:14 by Hunter Loja) Father HTN (hypertension) Mother No problems noted. Brother No problems noted. Brother No problems noted. Son No problems noted. Son No problems noted. Sister No problems noted. Daughter No problems noted. Surgical History: Surgical History (Last Reviewed 07/08/21 @ 13:14 by Hunter Loja) No pertinent past surgical history Social History: Social History (Last Reviewed 07/08/21 @ 13:14 by Hunter Loja) Living Situation History: Housing: House Alcohol History: Alcohol intake: never Tobacco History: Patient Tobacco Use Status: Current everyday Tobacco Tobacco use type: Cigarette Cigarette Packs Per Day: 0.5 Years Smoked: 18 years Nutrition Assessment: Patient : No Occupation Assessmet: Current occupational status: employed Sex/Gender Assessment: Sexual orientation: Straight/Heterosexual Gender identity: Female Home Medications and Allergies Allergies Allergy/AdvReac Type Severity Reaction Status Date / Time No Known Allergies Allergy Verified 07/01/21 15:29 Physical Exam Vital signs: Vital Signs Temp 98 F 07/08/21 13:13 Pulse 79 07/08/21 13:13 Resp 20 07/08/21 13:13 BP 129/83 07/08/21 13:13 Pulse Ox 99 07/08/21 13:13 Intake & Output 07/07/21 07/08/21 07/08/21 18:59 06:59 18:59 Other: Weight 69.4 kg Weight in Grams [id number] Weight 69.4 kg - Constitutional Present: no acute distress - Routine HEENT Exam Head: Present: normal inspection ENT: Present: mucous membranes moist - Routine Neck Exam Present: supple, lymphadenopathy, thyromegaly, tenderness Assessment and Plan Patient Active problem list reviewed?: Yes (1) Papillary thyroid carcinoma Status: Acute Assessment and plan: DATABASE: 06/14: CBC: IN 0.7, HGB 13.4, HCT 40.5, PLT 352. CMP: LYTES WNL, GLUCOSE 95, BUN 11, THE CREATININE 0.8. CALCIUM 9.1, ALBUMIN 4.5. LFTS: 0.4/88//14. TSH: 2.2. This is a pleasant 36-year-old lady, with recent diagnosis of papillary thyroid carcinoma,([place] category ). She has not had formal staging done however it appears that the left cervical lymph node is suspicious as well. I offered further staging as well as referral for head and neck surgery. Patient is accompanied by her aunt. She tells me that they are actually waiting for a return call from [facility], 15:00 today for an appointment there, at the [facility]. PLAN: I did offer to set up appointment with Dr. Johnson, head and neck surgeon at [facility]. She will let me know after her appointment in [place]. I offered to mail the CD of imaging as well as the pathology slides. She will keep me posted. Thank you, CC: Dr. Mcmahon. - Time Spent With Patient Time Spent with Patient (in minutes): 30
--- NOTE | 2021-07-08 16:03 | MHC.HEMONCMA ---
pt came in for onc consult and states they are doing well. Clinical summary was updated and labs were drawn. pt will call if further apt is needed
== END | disposition home or self-care (01) ==
LOC: HO.ONC 07-08 12:53
PROVIDERS: PCP Nurse Practitioner Family; Referring Provider Internal Medicine; Visit Provider Internal Medicine Medical Oncology
DX: C73 Malignant neoplasm of thyroid gland (principal)
CPT/HCPCS: 99204

== ENCOUNTER 2024-10-10 11:56 | Outpatient (AMB) | payer OTHER, SELFPAY ==
--- NOTE | 2024-10-10 11:58 | A.OFFPC_ITS ---
Vital Signs 10/10/24 11:59 Height 5 ft 1 in Weight 153 lb 2 oz BMI 28.9 BP 126/82 Blood Pressure Location Rt brachial Position Sitting Pulse 82 Pulse Source Pulse Oximeter Pulse Oximetry (%) 98 Oxygen Delivery Method Room Air Intake Visit Reasons: 3 sun/ Allergies No Known Allergies Allergy (Verified 10/10/24 11:59) Medication List - Last Reconciled 10/10/24 by Ambrosio Ash MD alprazolam 0.25 mg (1/2 x 0.5 mg) PO DAILY PRN 90 days bupropion HCl SR (Wellbutrin SR) 150 mg PO QAM buspirone 15 mg PO BID 30 days levonorgestrel (Mirena) intrauterine levothyroxine 100 mcg PO QAM venlafaxine ER 150 mg PO BEDTIME 90 days Tobacco use date assessed: 10/10/24 Dental Screening Dental Screen Date: 10/10/24 Did you have a dental visit in the last 12 months?: Yes Did you have a dental problem in the last 6 months where you did not have access to dental care?: No Was dental information given to patient?: Patient has dentist HPI 3 sun/ HPI Details - The patient is a 39-year-old female pr esenting with a burning sensation on the left shoulder, upper back, and upper chest - Onset: Symptoms began on Sunday. - Quality: Described as a sunburn-like s ensation. - Location: Left shoulder area, extendin g to shoulder blades, and upper front - Aggravating Factors: Movement and fric tion from clothing, particularly in the armpit region. - Progression: Persistent since onset, n o rash visible yet. - Intervention: No specific treatment tr ied prior to encounter; suspicion of shingles raised. - Mild neuropathy in the left elbow. - Current management includes use of a b race, recently tried. - Improvement noted at night with brace usage. - Additional aid with gel elbow pads. - management of anxiety - hypothyroidism Problem List - Possible Herpes Zoster (Shingles) - Mild Neuropathy, Left Elbow - anxiety generalized -hypothyroidism -depression Medications - Alprazolam 0.25 mg: Anxiety management - Bupropion 150 mg once daily: Depressio n management - Buspirone 15 mg twice daily: Anxiety m anagement - Levothyroxine 100 mg: Thyroid hormone replacement - Melnafixin 150 mg: Depression manageme nt Diagnostic results - Labs: - CBC: Normal - Kidney function: Normal - Blood sugar: Normal - Liver function: Normal - Cholesterol: High (LDL 151) - Vitamin D: Normal - Thyroid function: Normal [place] [facility]; OBGYN Review of Systems - Skin: Reports a burning sensation with out visible rash. - Musculoskeletal: Reports mild left elb ow neuropathy. General: No fever no chills neurological: No headaches no dizziness ear nose throat: No sore throat no hearing difficulty no ear pain cardiovascular: No syncope, no chest pain, no palpitations gastrointestinal: No nausea vomiting or diarrhea endocrine: No polyuria polydipsia no heat intolerance genitourinary: No dysuria skin: No new complaints Physical Exam general: No acute distress HEENT: No acute findings neck: Supple respiratory system: Able to talk in full sentences, no audible wheeze no stridor cardiovascular: S1-S2 gastrointestinal: No pain extremities: Burning sensation left side of shoulder area in the back and front 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 - Monitor symptoms; update me on your co ndition in a week. - Avoid wearing the elbow brace during night. - Consider lifestyle modifications to lo wer LDL cholesterol. - Schedule a follow-up appointment in . - Contact me sooner if symptoms worsen o r if a rash appears -continue all other medications as presc ribed Follow-up 3 months [facility], [facility] Medical History HPV in female Thyroid ca History of COVID-19 History of back problems Anxiety Migraine Mild scoliosis History of kidney stones History of UTI Depression Surgical History Hx of thyroidectomy No pertinent past surgical history Family History Father HTN (hypertension) Mother No problems noted. Brother No problems noted. Brother No problems noted. Son No problems noted. Son No problems noted. Sister No problems noted. Daughter No problems noted. 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 Sexual orientation: Straight/Heterosexual Gender identity: Female Cognitive needs: No Hearing needs: No Vision needs: No Female Reproductive History Menstrual Age of Menarche: 10 Questionnaire Thrive Questionnaire Date Thrive assessed: 10/10/24 I am a: Patient What is your living situation today?: I have a steady place to live Within the past 12 months, did the food you bought not last and you didn't have the money to get more?: Sometimes True Within the past 12 months, did you worry whether your food would run out before you got money to buy more?: Sometimes True Do you have trouble paying for medicines?: No Do you have trouble getting transportation to medical appointments?: No Do you have trouble paying your heating and electricity bill?: No Do you have trouble taking care of your child, family member or friend?: No Do you have trouble with day-to-day activities such as bathing, preparing meals, shopping, managing finances, etc.?: No Are you currently unemployed and looking for a job?: No Are you interested in more education?: No Please select the resources that you would like help with: None Currently or been in a relationship where the following occur: No concerns reported THRIVE Score: 2 AUDIT C Alcohol Use Questionnaire (AUDIT-C) 1. How often do you have a drink containing alcohol?: Monthly or less 2. How many drinks containing alcohol do you have on a typical day when you are drinking?: 1 or 2 3. How often do you have six or more drinks on one occasion?: Less than monthly Total Score: 2 Score Reviewed/Action Taken: Yes MYESHA-7 AMB Questionnaire MYESHA-7 Date MYESHA - 7 assessed: 06/06/24 Source: Developed by Drs. Tulio Osborne, Sondra Downing, Ernie Wiley and colleagues, with an educational chayo from [employer]. Physical exam (Primary Care) Vital Signs: Last Vital Signs Pulse 82 10/10/24 11:59 BP 126/82 10/10/24 11:59 Pulse Ox 98 10/10/24 11:59 Oxygen Delivery Method Room Air 10/10/24 11:59 BMI result Body Mass Index 28.9 Tobacco/Smoking Status: Tobacco use Status Tobacco use date assessed 10/10/24 10/10/24 12:02 Patient Tobacco Use Status Former Tobacco user 10/10/24 12:02 Tobacco use type Cigarette 10/10/24 12:02 e-Cigarette/Vaping Use Never Used 10/10/24 12:02 Thrive Assessment: Date of Thrive Assessment Date Thrive assessed 10/10/24 10/10/24 12:02 Currently or been in a relationship where the following occur: No concerns reported Coding Level of Care Code Est Pt Level 4 (19119) Complex EM visit Add On G2211 Diagnoses Paresthesia of left upper extremity R20.2 Hypothyroidism (acquired) E03.9 Anxiety, generalized F41.1 Moderate episode of recurrent major depressive disorder F33.1 Active/Remission status: currently active Major depression episode severity: moderate Lipid disorder E78.9 Assessment & Plan Assessment & Plan (1) Paresthesia of left upper extremity: Code(s): R20.2 - Paresthesia of skin Category: Medical (2) Hypothyroidism (acquired): Code(s): E03.9 - Hypothyroidism, unspecified Category: Medical (3) Anxiety, generalized: Code(s): F41.1 - Generalized anxiety disorder Category: Medical (4) Major depression, recurrent: Code(s): F33.9 - Major depressive disorder, recurrent, unspecified Category: Medical Qualifiers: Active/Remission status: currently active Major depression episode severity: moderate Qualified Code(s): F33.1 - Major depressive disorder, recurrent, moderate (5) Lipid disorder: Code(s): E78.9 - Disorder of lipoprotein metabolism, unspecified Category: Medical Plan - The patient is a 39-year-old female presenting with a burning sensation on the left shoulder, upper back, and upper chest - Onset: Symptoms began on Sunday. - Quality: Described as a sunburn-like sensation. - Location: Left shoulder area, extending to shoulder blades, and upper front - Aggravating Factors: Movement and friction from clothing, particularly in the armpit region. - Progression: Persistent since onset, no rash visible yet. - Intervention: No specific treatment tried prior to encounter; suspicion of shingles raised. - Mild neuropathy in the left elbow. - Current management includes use of a brace, recently tried. - Improvement noted at night with brace usage. - Additional aid with gel elbow pads. - management of anxiety - hypothyroidism Problem List - Possible Herpes Zoster (Shingles) - Mild Neuropathy, Left Elbow - anxiety generalized -hypothyroidism -depression Medications - Alprazolam 0.25 mg: Anxiety management - Bupropion 150 mg once daily: Depression management - Buspirone 15 mg twice daily: Anxiety management - Levothyroxine 100 mg: Thyroid hormone replacement - Melnafixin 150 mg: Depression management Diagnostic results - Labs: - CBC: Normal - Kidney function: Normal - Blood sugar: Normal - Liver function: Normal - Cholesterol: High (LDL 151) - Vitamin D: Normal - Thyroid function: Normal [place] [facility]; OBGYN Review of Systems - Skin: Reports a burning sensation without visible rash. - Musculoskeletal: Reports mild left elbow neuropathy. General: No fever no chills neurological: No headaches no dizziness ear nose throat: No sore throat no hearing difficulty no ear pain cardiovascular: No syncope, no chest pain, no palpitations gastrointestinal: No nausea vomiting or diarrhea endocrine: No polyuria polydipsia no heat intolerance genitourinary: No dysuria skin: No new complaints Physical Exam general: No acute distress HEENT: No acute findings neck: Supple respiratory system: Able to talk in full sentences, no audible wheeze no stridor cardiovascular: S1-S2 gastrointestinal: No pain extremities: Burning sensation left side of shoulder area in the back and front VISUAL MERCHANDISING ASSISTANT: Alert awake oriented x3 motor sensory intact skin: Burning sensation like a sunburn on left shoulder blade, armpit, and around the breast, no visible rash Patient Instructions - Start prescribed medication for possible shingles for 7 days. - Monitor symptoms; update me on your condition in a week. - Avoid wearing the elbow brace during the night. - Consider lifestyle modifications to lower LDL cholesterol. - Schedule a follow-up appointment in three months. - Contact me sooner if symptoms worsen or if a rash appears -continue all other medications as prescribed Follow-up 3 months Medications: New famciclovir 500 mg PO Q8H 7 days 21 tabs 0RF
[2024-10-10 11:59] VITALS: BP 126/82; PULSE 82; O2SAT 98; BMI 28.9
== END 2024-10-10 12:28 | disposition home or self-care (01) ==
PROVIDERS: PCP Internal Medicine; Visit Provider Internal Medicine
DX: R20.2 Paresthesia of skin (principal); E03.9 Hypothyroidism, unspecified; F41.1 Generalized anxiety disorder; F33.1 Major depressive disorder, recurrent, moderate; E78.9 Disorder of lipoprotein metabolism, unspecified

== ENCOUNTER → 2024-10-10 11:56 | Outpatient (BNVA) | payer OTHER, SELFPAY | PROVIDERS: PCP Internal Medicine; Visit Provider Internal Medicine | DX: R20.2 Paresthesia of skin (principal); E03.9 Hypothyroidism, unspecified; F41.1 Generalized anxiety disorder; F33.1 Major depressive disorder, recurrent, moderate; E78.9 Disorder of lipoprotein metabolism, unspecified | CPT/HCPCS: 99212 ==

== ENCOUNTER 2025-01-09 12:00 | Outpatient (AMB) | payer OTHER, SELFPAY ==
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
[2025-01-09 12:11] VITALS: BP 122/76; PULSE 95; O2SAT 98; BMI 26.9
== END 2025-01-09 12:56 | disposition home or self-care (01) ==
LOC: HO.HMCC 12:01
PROVIDERS: PCP Internal Medicine; Visit Provider Internal Medicine
DX: E03.9 Hypothyroidism, unspecified (principal); F41.1 Generalized anxiety disorder; F33.1 Major depressive disorder, recurrent, moderate; E78.9 Disorder of lipoprotein metabolism, unspecified

== ENCOUNTER → 2025-01-09 12:00 | Outpatient (BNVA) | payer OTHER, SELFPAY | PROVIDERS: PCP Internal Medicine; Visit Provider Internal Medicine | DX: E03.9 Hypothyroidism, unspecified (principal); F41.1 Generalized anxiety disorder; F33.1 Major depressive disorder, recurrent, moderate; E78.9 Disorder of lipoprotein metabolism, unspecified | CPT/HCPCS: 96127; 99212 ==

== ENCOUNTER 2025-03-13 12:48 | Outpatient (AMB) | payer OTHER, SELFPAY ==
--- NOTE | 2025-03-13 12:49 | A.OFFPC_ITS ---
Vital Signs 3 03/13/25 12:50 Height 5 ft 1 in Weight 141 lb BMI 26.6 BP 118/78 Blood Pressure Location Rt brachial Position Sitting Pulse 86 Pulse Source Pulse Oximeter Pulse Oximetry (%) 97 Oxygen Delivery Method Room Air Intake Visit Reasons: Shingles Kidney Trimmer Required: No Accompanied by: Self / Same As Patient Allergies No Known Allergies Allergy (Verified 03/13/25 12:50) Medication List - Last Reconciled 03/13/25 by Ambrosio Ash MD alprazolam 0.25 mg PO DAILY PRN 90 days bupropion HCl SR (Wellbutrin SR) 150 mg PO QAM buspirone 15 mg PO BID 30 days levonorgestrel (Mirena) intrauterine levothyroxine 75 mcg PO DAILY venlafaxine ER 150 mg PO BEDTIME 90 days Tobacco use date assessed: 01/09/25 Dental Screening Dental Screen Date: 01/09/25 HPI Shingles 2 HPI0 Details Patient is 39-year-old female came in today with a chief complaint of burning sensation left lower arm It started with the pain in her hand and now she has feeling as if she has a sunburn Patient has a history of shingles before left upper chest area Patient says that it feels exactly the same She also have a 1 single posterior cervical lymph node enlarged on the left side There is no fever chills I have sent famciclovir 500 mg to be taken 3 times a day for 7 days She will follow up with me if symptoms gets worse . PFSH Medical History HPV in female Thyroid ca History of COVID-19 History of back problems Anxiety Migraine Mild scoliosis History of kidney stones History of UTI Depression Surgical History Hx of thyroidectomy No pertinent past surgical history Family History Father HTN (hypertension) Mother No problems noted. Brother No problems noted. Brother No problems noted. Son No problems noted. Son No problems noted. Sister No problems noted. Daughter No problems noted. 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 Sexual orientation: Straight/Heterosexual Gender identity: Female Cognitive needs: No Hearing needs: No Vision needs: No Female Reproductive History Menstrual Age of Menarche: 10 Questionnaire Thrive Questionnaire Date Thrive assessed: 01/09/25 I am a: Patient What is your living situation today?: I have a steady place to live Within the past 12 months, did the food you bought not last and you didn't have the money to get more?: Never true Within the past 12 months, did you worry whether your food would run out before you got money to buy more?: Never true Do you have trouble paying for medicines?: No Do you have trouble getting transportation to medical appointments?: No Do you have trouble paying your heating and electricity bill?: No Do you have trouble taking care of your child, family member or friend?: No Do you have trouble with day-to-day activities such as bathing, preparing meals, shopping, managing finances, etc.?: No Are you currently unemployed and looking for a job?: No Are you interested in more education?: No Please select the resources that you would like help with: None THRIVE Score: 0 MYESHA-7 AMB Questionnaire MYESHA-7 Date MYESHA - 7 assessed: 01/09/25 Source: Developed by Drs. Tulio Osborne, Sondra Downing, Ernie Wiley and colleagues, with an educational chayo from Robert Applebaum MD. Review of Systems Const Denies chills and Denies fever(s) ENT Denies epistaxis and Denies nasal discharge Card Denies chest pain Resp Denies chest congestion, Denies cough and Denies hemoptysis GI Denies diarrhea and Denies nausea Neuro Reports no additional complaints Psych Reports no additional complaints Endo Reports no additional complaints Physical exam (Primary Care) Vital Signs: Last Vital Signs Pulse 86 03/13/25 12:50 BP 118/78 03/13/25 12:50 Pulse Ox 97 03/13/25 12:50 Oxygen Delivery Method Room Air 03/13/25 12:50 BMI result Body Mass Index 26.6 Tobacco/Smoking Status: Tobacco use Status Tobacco use date assessed 01/09/25 03/13/25 12:52 Patient Tobacco Use Status Former Tobacco user 03/13/25 12:52 Tobacco use type Cigarette 03/13/25 12:52 e-Cigarette/Vaping Use Never Used 03/13/25 12:52 Thrive Assessment: Date of Thrive Assessment Date Thrive assessed 01/09/25 03/13/25 12:52 Const General: cooperative, comfortable and no acute distress Orientation/consciousness: patient oriented x3 HENMI Head: Yes normocephalic Head images: 2 1. One single enlarged lymph node size of Pea posterior cervical left side, nontender Eyes General: appearance normal, both eyes and all related structures Neck Neck: Yes supple Resp Effort & Inspection: normal respiratory effort, no cough and no stridor Skin Other: Shingles rash not observed General skin exam: turgor normal Neuro General: patient oriented x3, tone normal and moves all extremities Extrem Right lower extremity: no edema Left lower extremity: no edema Coding Level of Care Code Est Pt Level 3 (96266) Diagnoses Paresthesia of left upper extremity R20.2 Lymphadenopathy, posterior cervical R59.0 History of thyroid cancer Z85.850 Assessment & Plan Assessment & Plan (1) Paresthesia of left upper extremity: Code(s): R20.2 - Paresthesia of skin Category: Medical (2) Lymphadenopathy, posterior cervical: Code(s): R59.0 - Localized enlarged lymph nodes Category: Medical (3) History of thyroid cancer: Code(s): Z85.850 - Personal history of malignant neoplasm of thyroid Category: Medical Plan Patient is 39-year-old female came in today with a chief complaint of burning sensation left lower arm It started with the pain in her hand and now she has feeling as if she has a sunburn Patient has a history of shingles before left upper chest area Patient says that it feels exactly the same She also have a 1 single posterior cervical lymph node enlarged on the left side Patient has a history of thyroid cancer, she is established with oncologist and have an ultrasound coming up There is no fever chills I have sent famciclovir 500 mg to be taken 3 times a day for 7 days She will follow up with me if symptoms gets worse .
[2025-03-13 12:50] VITALS: BP 118/78; PULSE 86; O2SAT 97; BMI 26.6
== END 2025-03-13 13:09 | disposition home or self-care (01) ==
PROVIDERS: PCP Internal Medicine; Visit Provider Internal Medicine
DX: R20.2 Paresthesia of skin (principal); R59.0 Localized enlarged lymph nodes; Z85.850 Personal history of malignant neoplasm of thyroid

== ENCOUNTER → 2025-03-13 12:48 | Outpatient (BNVA) | payer OTHER, SELFPAY | PROVIDERS: PCP Internal Medicine; Visit Provider Internal Medicine | DX: R20.2 Paresthesia of skin (principal); R59.0 Localized enlarged lymph nodes; Z85.850 Personal history of malignant neoplasm of thyroid | CPT/HCPCS: 99212 ==

== ENCOUNTER 2025-06-10 07:33 | Outpatient (AMB) | payer OTHER, SELFPAY ==
--- NOTE | 2025-06-10 07:34 | MHC.OFFVIS ---
Intake Visit Reasons: Fertility consult Senior Regulatory Affairs Specialist Required: No Information Interpreted: non-clinical & clinical Accompanied by: Spouse Allergies No Known Allergies Allergy (Verified 06/10/25 07:34) HPI Comments Details: Presenting for counseling. The patient and her partner are interested in attempting , concerned about her H, history of delivery at 35-,1/2 weeks, history of thyroid cancer status post thyroidectomy on levothyroxine, cervical incompetence in last status post cerclage and developed preeclampsia with severe features PFSH Medical History HPV in female Thyroid ca History of COVID-19 History of back problems Anxiety Migraine Mild scoliosis History of kidney stones History of UTI Depression Surgical History Hx of thyroidectomy No pertinent past surgical history Family History Father HTN (hypertension) Mother No problems noted. Brother No problems noted. Brother No problems noted. Son No problems noted. Son No problems noted. Sister No problems noted. Daughter No problems noted. 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 Sexual orientation: Straight/Heterosexual Gender identity: Female Cognitive needs: No Hearing needs: No Vision needs: No Female Reproductive History Menstrual Age of Menarche: 10 control method: progestin IUCD Review of Systems Const All systems reviewed & are unremarkable except as noted in HPI and below Reports as per HPI and Reports no additional complaints GI Reports no additional complaints Reports no additional complaints Assessment & Plan Assessment & Plan (1) Encounter for other general counseling and advice on procreation: Code(s): Z31.69 - Encounter for other general counseling and advice on procreation Category: Medical Plan: Discussed with the patient and her partner the chance of , risk of chromosomal abnormalities and miscarriage, increase in the risk of , indication for cerclage, recurrent risk of delivery and preeclampsia Recommended infertility consult to expedite and increase the chance of conception The patient would like to think about it and get back to me as soon as possible. vitamin 1 tablet p.o. q.d. All questions answered, the patient verbalized understanding Coding Level of Care Code Est Pt Level 3 (71281) Diagnoses Encounter for other general counseling and advice on procreation Z31.69
== END 2025-06-10 08:04 | disposition home or self-care (01) ==
LOC: HO.HWS 07:33
PROVIDERS: PCP Internal Medicine; Visit Provider Obstetrics & Gynecology
DX: Z31.69 Encounter for other general counseling and advice on procreation (principal)
CPT/HCPCS: 99213

== ENCOUNTER → 2025-06-10 07:33 | Outpatient (BNVA) | payer OTHER, SELFPAY | PROVIDERS: PCP Internal Medicine; Visit Provider Obstetrics & Gynecology | DX: Z31.69 Encounter for other general counseling and advice on procreation (principal) | CPT/HCPCS: 99212 ==

== ENCOUNTER 2025-06-19 11:24 | Outpatient (AMB) | payer OTHER, SELFPAY ==
[2025-06-19 11:30] VITALS: BP 120/86; PULSE 96; RESP 18; TEMP 36.8; O2SAT 97; BMI 31.0
--- NOTE | 2025-06-19 11:30 | A.OFFPC_ITS ---
Vital Signs 06/19/25 11:30 Height 5 ft 1 in Weight 164 lb BMI 31.0 BP 120/86 Blood Pressure Location Lt brachial Position Sitting Respiration 18 Pulse 96 Pulse Source Pulse Oximeter Temp 98.2 F Temp Source Oral Pulse Oximetry (%) 97 Oxygen Delivery Method Room Air Intake Visit Reasons: PE Intake Note: Pt is here today for PE. Allergies No Known Allergies Allergy (Verified 06/19/25 11:30) Medication List - Last Reconciled 06/19/25 by Ambrosio Ash MD alprazolam 0.25 mg PO DAILY PRN 90 days bupropion HCl SR (Wellbutrin SR) 150 mg PO QAM buspirone 15 mg PO BID 30 days levonorgestrel (Mirena) intrauterine levothyroxine 75 mcg PO DAILY venlafaxine ER 150 mg PO BEDTIME 90 days Tobacco use date assessed: 06/19/25 Dental Screening Dental Screen Date: 06/19/25 Did you have a dental visit in the last 12 months?: Yes Did you have a dental problem in the last 6 months where you did not have access to dental care?: No Was dental information given to patient?: Patient has dentist HPI PE HPI Details Physical exam appointment History of Present Illness The patient is a 40 year old female presenting with management of anxiety. Anxiety: - The patient reports anxiety has been e levated recently, associated with a court case involving custody issues. - She currently takes buspirone 50 mg BI D and requested an increase in her alprazolam dosage. Some days she has more anxiety since the court dates and takes 2 of 0.25 mg Snoring: - The patient reports loud snoring that wakes her up. - Symptoms are recent and more severe th an in the past. - She feels excessively tired during the day, which suggests possible sleep apnea. - Family history of sleep apnea noted as patient's father was diagnosed with it. Medical History: - Anxiety - Depression - Hypothyroidism - Lipid disorder Social History: - The patient is involved in a court jayme e that is causing significant stress. - Reports fluctuations in weight, previo usly reached 135 lbs but is now experiencing weight changes and is categorized as overweight with a BMI of 31.0. Family History: - Father diagnosed with Obstructive Slee p Apnea Health Maintenance - Recent labs showed normal CBC, liver e nzymes, electrolytes, kidney functions, and thyroid levels. - Elevated LDL at 151 indicates lipid di sorder. 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 - Tetanus vaccine is due but unavailable at the office; recommended obtaining it at a pharmacy. Medications - Alprazolam 0.25 mg daily for anxiety - Bupropion for depression - Buspirone 50 mg BID for anxiety - Levothyroxine 75 mg daily for hypothyr oidism - Venlafaxine 150 mg for anxiety and dep ression Diagnostic results Labs: - CBC: within normal limits - Electrolytes: within normal limits - Kidney function: normal - Liver enzymes: within normal limits - LDL: 151 mg/dL - Vitamin D: normal - Thyroid function: normal Patient Instructions - Continue all current medications as pr escribed. - Seek a tetanus vaccine at a pharmacy w hen collecting prescriptions. - Arrange for a sleep study to evaluate snoring and suspected sleep apnea. - Follow up regarding any changes in anx iety or depression symptoms. - alprazolam 0.25 mg daily and if needed 1 extra, 145 tablets sent for 90 days Follow-up three-month for medication refill and 1 year physical exam Review of Systems - General: No fever no chills - Neurological: No headaches no dizzin ess - Ear nose throat: No sore throat no hearing difficulty no ear pain - Cardiovascular: No syncope, no chest pain, no palpitations - Gastrointestinal: No nausea vomiting or diarrhea - Endocrine: No polyuria polydipsia no heat intolerance - Genitourinary: No dysuria - Skin: No new complaints Physical Exam General: Cooperative, healthy appearing, comfortable, no acute distress Orientation: Patient oriented x3 Head: Normal to inspection Ears: Within normal limit visually Nose: Normal external nose present Face and sinus: Normal facial exam Eyes: Appearance normal, extraocular movement intact pupils reactive Neck: Normal visual inspection and supple Respiratory: Normal respiratory effort and able to speak in complete sentences. Clear to auscultation, no stridor Cardiovascular: S1 and S2 RRR Breast exam through OBGYN GI: Normal to inspection. Soft to palpation and nontender Skin: Turgor normal, no acute findings Neuro: Patient oriented x3, motor sensory intact, balance intact, tandem pass Extremities: Normal to inspection [facility] Medical History HPV in female Thyroid ca History of COVID-19 History of back problems Anxiety Migraine Mild scoliosis History of kidney stones History of UTI Depression Surgical History Hx of thyroidectomy No pertinent past surgical history Family History Father HTN (hypertension) Mother No problems noted. Brother No problems noted. Brother No problems noted. Son No problems noted. Son No problems noted. Sister No problems noted. Daughter No problems noted. 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 Sexual orientation: Straight/Heterosexual Gender identity: Female Cognitive needs: No Hearing needs: No Vision needs: No Female Reproductive History Menstrual Age of Menarche: 10 Questionnaire Thrive Questionnaire Date Thrive assessed: 06/19/25 I am a: Patient What is your living situation today?: I have a steady place to live Within the past 12 months, did the food you bought not last and you didn't have the money to get more?: Never true Within the past 12 months, did you worry whether your food would run out before you got money to buy more?: Never true Do you have trouble paying for medicines?: No Do you have trouble getting transportation to medical appointments?: No Do you have trouble paying your heating and electricity bill?: No Do you have trouble taking care of your child, family member or friend?: No Do you have trouble with day-to-day activities such as bathing, preparing meals, shopping, managing finances, etc.?: No Are you currently unemployed and looking for a job?: No Are you interested in more education?: No Please select the resources that you would like help with: None THRIVE Score: 0 MYESHA-7 AMB Questionnaire MYESHA-7 Date MYESHA - 7 assessed: 01/09/25 Source: Developed by Drs. Tulio Osborne, Sondra Downing, Ernie Wiley and colleagues, with an educational chayo from [employer]. Physical exam (Primary Care) Vital Signs: Last Vital Signs Temp 98.2 F 06/19/25 11:30 Pulse 96 06/19/25 11:30 Resp 18 06/19/25 11:30 BP 120/86 06/19/25 11:30 Pulse Ox 97 06/19/25 11:30 Oxygen Delivery Method Room Air 06/19/25 11:30 BMI result Body Mass Index 31.0 Tobacco/Smoking Status: Tobacco use Status Tobacco use date assessed 06/19/25 06/19/25 11:36 Patient Tobacco Use Status Former Tobacco user 06/19/25 11:36 Tobacco use type Cigarette 06/19/25 11:36 e-Cigarette/Vaping Use Never Used 06/19/25 11:36 Thrive Assessment: Date of Thrive Assessment Date Thrive assessed 06/19/25 06/19/25 11:36 Coding Level of Care Code Est Pt Level 3 (20097) Est Pt Prev Care 40-64y(55077) Diagnoses Encounter for general adult medical examination with abnormal findings Z00.01 Snores R06.83 Fatigue R53.83 Daytime somnolence R40.0 Hypothyroidism (acquired) E03.9 Anxiety, generalized F41.1 Moderate episode of recurrent major depressive disorder F33.1 Active/Remission status: currently active Major depression episode severity: moderate Lipid disorder E78.9 Assessment & Plan Assessment & Plan (1) Encounter for general adult medical examination with abnormal findings: Code(s): Z00.01 - Encounter for general adult medical examination with abnormal findings Category: Medical (2) Snores: Code(s): R06.83 - Snoring Category: Medical (3) Fatigue: Code(s): R53.83 - Other fatigue Category: Medical (4) Daytime somnolence: Code(s): R40.0 - Somnolence Category: Medical (5) Hypothyroidism (acquired): Code(s): E03.9 - Hypothyroidism, unspecified Category: Medical (6) Anxiety, generalized: Code(s): F41.1 - Generalized anxiety disorder Category: Medical (7) Major depression, recurrent: Code(s): F33.9 - Major depressive disorder, recurrent, unspecified Category: Medical Qualifiers: Active/Remission status: currently active Major depression episode severity: moderate Qualified Code(s): F33.1 - Major depressive disorder, recurrent, moderate (8) Lipid disorder: Code(s): E78.9 - Disorder of lipoprotein metabolism, unspecified Category: Medical Plan Physical exam appointment History of Present Illness The patient is a 40 year old female presenting with management of anxiety. Has a history of depression and hypothyroidism history of obesity Anxiety: - The patient reports anxiety has been elevated recently, associated with a court case involving custody issues. - She currently takes buspirone 50 mg BID and requested an increase in her alprazolam dosage. Some days she has more anxiety since the court dates and takes 2 of 0.25 mg Snoring: - The patient reports loud snoring that wakes her up. - Symptoms are recent and more severe than in the past. - She feels excessively tired during the day, which suggests possible sleep apnea. - Family history of sleep apnea noted as patient's father was diagnosed with it. Medical History: - Anxiety - Depression - Hypothyroidism - Lipid disorder Social History: - The patient is involved in a court case that is causing significant stress. - Reports fluctuations in weight, previously reached 135 lbs but is now experiencing weight changes and is categorized as overweight with a BMI of 31.0. Family History: - Father diagnosed with Obstructive Sleep Apnea Health Maintenance - Recent labs showed normal CBC, liver enzymes, electrolytes, kidney functions, and thyroid levels. - Elevated LDL at 151 indicates lipid disorder. - Patient is up to date with [employer] PO[employer] CLERK visits and has received mammogram letter. - Tetanus vaccine is due but unavailable at the office; recommended obtaining it at a pharmacy. Medications - Alprazolam 0.25 mg daily for anxiety - Bupropion for depression - Buspirone 50 mg BID for anxiety - Levothyroxine 75 mg daily for hypothyroidism - Venlafaxine 150 mg for anxiety and depression Diagnostic results Labs: - CBC: within normal limits - Electrolytes: within normal limits - Kidney function: normal - Liver enzymes: within normal limits - LDL: 151 mg/dL - Vitamin D: normal - Thyroid function: normal Patient Instructions - Continue all current medications as prescribed. - Seek a tetanus vaccine at a pharmacy when collecting prescriptions. - Arrange for a sleep study to evaluate snoring and suspected sleep apnea. - Follow up regarding any changes in anxiety or depression symptoms. - alprazolam 0.25 mg daily and if needed 1 extra, 145 tablets sent for 90 days Follow-up three-month for medication refill and 1 year physical exam Orders: Orders RT home sleep study Today R06.83 - Snoring, R40.0 - Somnolence, R53.83 - Other fatigue Medications: Refilled alprazolam 0.25 mg PO DAILY PRN 145 tabs 0RF anxiety 90 days
--- OUTSIDE RECORDS SUMMARY | 2025-06-19 12:27 | XMS_ITS | Clinical Summary ---
Author Organization [facility] Address [address] [place] [address] Phone Care Team Providers Care Bisque Tile Burner Name Role Phone Alfonso Mcmahon NP Primary Care Provider + Allergies No known active allergies Medications busPIRone (BUSPAR) 15 MG tablet Take 15 mg by mouth 2 (two) times a day. 07/01/2021 Active ALPRAZolam (XANAX) 0.25 MG tablet Take 0.25 mg by mouth daily. 09/05/2022 Active buPROPion (WELLBUTRIN SR) 150 MG SR 12 hr tablet Take 150 mg by mouth every morning. 06/28/2023 Active venlafaxine (EFFEXOR-XR) 150 MG 24 hr capsule 07/04/2023 Ac tive levothyroxine (SYNTHROID, LEVOTHROID) 75 MCG tablet Take 1 tablet (75 mcg total) by mouth daily. 90 tablet 3 03/19/2025 Active Active Problems Problem Noted Date Diagnosed Date Papillary thyroid carcinoma 08/31/2021 Thyroid cancer 08/30/2021 Immunizations Immunization Administration Dates Next Due Influenza Quadrivalent Preservative Free IM 08/22 Family History Medical History Relation Comments Thyroid cancer Maternal Grandmother Hypothyroidism Paternal Aunt 1 Stomach cancer Paternal Aunt 2 Hypothyroidism Paternal Cousin Stomach cancer Paternal Grandmother Throat cancer Unspecified Relation Status Comments Maternal Grandmother Paternal Aunt 1 Paternal Aunt 2 Paternal Cousin Paternal Grandmother Unspecified Social History Tobacco Use Types Packs/Day Years Used Date Smoking Tobacco: Former Cigarettes 0.5 23 S tarted: 06/22/2002 Smokeless Tobacco: Never Tobacco Cessation:Counseling Given: Not Answered Comments:Presently smoking occasional <1 day in since 06/2021. On Nicoderm patch Alcohol Use Standard Drinks/Week Comments Yes 0 (1 standard drink = 0.6 oz pur e alcohol) Rarer. Special social occasion Education Answer Date Recorded Are you interested in more education? Not on jase e 02/17/2023 Are you concerned about learning? Not on file 02/17/2023 No 02/17/2023 No 02/17/2023 Digital Access Answer Date Recorded No 03/20/2023 No 03/20/2023 Reliable internet access at home? Not on file 03/20/2023 Device with a working camera? Not on file Comments No Sex and Gender Information Value Date Recorded Sex Assigned at Female 07/11/2021 11:14 AM EDT Legal Sex Female 10:07 AM EDT Gender Identity Female 07/11/2021 11:14 AM EDT Sexual Orientation Straight 07/11/2021 11 :14 AM EDT Occupation Industry Job Start Date Job End Date [place] Not on file Not on file Not on file Last Filed Vital Signs Vital Sign Reading Time Taken Comments Blood Pressure 132/78 03/17/2025 1:59 PM EDT Pulse 81 03/17/2025 1:59 PM EDT Temperature 36.6 C (97.9 F) 10/10/2021 10:24 AM EST Respiratory Rate 18 10/10/2021 10:24 AM EST Oxygen Saturation 98% 03/17/2025 1:59 PM EDT Inhaled Oxygen Concentration - - Weight 64.1 kg (141 lb 4 oz) 03/17/2025 1:59 PM EDT Height 157 cm (5' 1.81 ) 03/17/2025 1:59 PM EDT Body Mass Index 25.99 03/17/2025 1:59 PM EDT Plan of Treatment Upcoming Encounters Date Type Department Care Team (Late st Contact Info) Description 04/06/2026 10:30 AM EDT Appointment [facility] [address] [place] [address] Kim Busch MD [address] [place] [address] [email or web address] 04/06/2026 2:00 PM EDT Office Visit [facility] Endocrine, Diabetes, and Hypertension [address] [facility] 2nd [place] [address] Kim Busch MD [address] [place] [address] [email or web address] Health Maintenance Due Date Last Done Comments SMOKING Hx and SMOKELESS TOBACCO SCREENING 1997 HEPATITIS C SCREENING 2002 HIV ONE-TIME SCREENING (18-65 YEARS) 2002 PNEUMOCOCCAL VACCINES (0-49 years) (1 of 2 - PCV) 2003 PAP SMEAR 2005 MAMMOGRAM 2024 COVID-19 VACCINE ( season) 2024 07/19/2021, 06/28/2021 DEPRESSION SCREENING 03/17/2026 03/17/2025 TSH LEVEL 03/17/2026 03/17/2025, 10/0 03/2024, 06/05/2024, Additional history exists Adult Td,Tdap Booster 04/09/2027 04/09/2017, 015 SCREENING FOR DIABETES 03/17/2028 03/17/2025, 2023 HEPATITIS A VACCINES Aged Out No long er eligible based on patient's age to complete this topic HIB VACCINES Aged Out No longer eligi ble based on patient's age to complete this topic MENINGOCOCCAL VACCINES (ACWY) Aged Out No longer eligible based on patient's age to complete this topic MENINGOCOCCAL VACCINES (B) Aged Out N o longer eligible based on patient's age to complete this topic Medical Devices Implanted Type Area Hair Spring Cutter Device Identifier Shelf Expiration Date Model / Serial / Lot Iud Procedures Procedure Name Priority Date/Time Associated Diagnosis Comments TSH Routine 03/17/2025 2:49 PM EDT Thyroid cancer from Last 3 Months or Most Recently Relevant to Health Maintenance Results * TSH (03/17/2025 2:49 PM EDT) TSH 0.92 0.50 - 5.70 uIU/mL [facility] Blood 03/17/2025 2:49 PM EDT 03/17/2025 2:50 PM EDT us Kim Busch MD LAB BLOOD ORDERABLES Final Resul t Performing Organization Address City/State/[facility] Co de Phone Number [facility] [address] [place] [address] from Last 3 Months or Most Recently Relevant to Health Maintenance Insurance [facility] NON NSPG PCP SILVER CLARITY CONNECTORCARE [facility] NON NSPG PCP SILVER CLARITY CONNECTORCARE [employer] NON NSPG PCP SILVER CLARITY CONNECTORCARE [employer] NON NSPG PCP SILVER CLARITY CONNECTORCARE [employer] NON NSPG PCP SILVER CLARITY CONNECTORCARE [facility] NON NSPG PCP [facility] Advance Directives For more information, please contact: [phone] (9AM - 5PM 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 It is not the complete legal health record.[facility]
--- OUTSIDE RECORDS SUMMARY | 2025-06-19 12:27 | XMS_ITS | Encounter Summary ---
Author Organization [facility] Address [address] [facility] [address] [place] [address] Phone Care Team Providers Care Glue Sprayer Name Role Phone Alfonso Mcmahon RISK CONTROL FIELD REPRESENTATIVE Primary Care Provider + Encounter Details Date Type Department Care Team (Late st Contact Info) Description 05/02/2022 Ancillary Orders [facility] Endocrine, Diabetes, and Hypertension [address] [address] Kim Busch MD [address] [place] [address] [email or web address] Thyroid cancer Social History Tobacco Use Types Packs/Day Years Used Date Smoking Tobacco: Former Cigarettes 0.5 23 S tarted: 06/22/2002 Smokeless Tobacco: Never Comments:Presently smoking o ccasional <1 day in since 06/2021. On Nicoderm patch Alcohol Use Standard Drinks/Week Comments Yes 0 (1 standard drink = 0.6 oz pur e alcohol) Rarer. Special social occasion Comments No Sex and Gender Information Value Date Recorded Sex Assigned at Female 07/11/2021 11:14 AM EDT Legal Sex Female 10:07 AM EDT Gender Identity Female 07/11/2021 11:14 AM EDT Sexual Orientation Straight 07/11/2021 11 :14 AM EDT Occupation Industry Job Start Date Job End Date [place] Not on file Not on file Not on file documented as of this encounter Plan of Treatment Upcoming Encounters Date Type Department Care Team (Late st Contact Info) Description 04/06/2026 10:30 AM EDT Appointment [facility] [address] [place] [address] Kim Busch MD [address] [place] [phone] [email or web address] 04/06/2026 2:00 PM EDT Office Visit [facility] Endocrine, Diabetes, and Hypertension [address] [place] [address] Kim Busch MD [address] [place] [phone] [email or web address] documented as of this encounter Results * US Thyroid Gland (05/02/2022 1:46 PM EDT) Anatomical Region Laterality Modality Neck, Head, Chest Ultrasound 05/02/2022 1:47 PM EDT Impressions 05/02/2022 2:09 PM EDT 1. Status post thyroidectomy 2. Subcentimeter hypoechoic nodules in the thyroid bed bilaterally Narrative 05/02/2022 2:09 PM EDT US THYROID GLAND TECHNIQUE: Thyroid/Neck Ultrasound COMPARISON: Preoperative ultrasound dated 07/25/2021 FINDINGS: Thyroid gland: Surgically absent. Right lobe: Surgically absent. No residual tissue in the thyroidectomy bed. 3 x 2 x 2 mm hypoechoic nodule in the high thyroid bed. Left lobe: Surgically absent. No residual tissue in the thyroidectomy bed. 5 x 4 x 3 mm hypoechoic nodule in the mid thyroid bed. Isthmus thickness: Surgically absent. Lymph nodes: Benign appearing Right: measuring 11 x 7 x 3 mm, IJ chain, [high. Procedure Note Kavya Fuller MD - 05/02/2022 US THYROID GLAND TECHNIQUE: Thyroid/Neck Ultrasound COMPARISON: Preoperative ultrasound dated 07/25/2021 FINDINGS: Thyroid gland: Surgically absent. Right lobe: Surgically absent. No residual tissue in the thyroidectomybed. 3 x 2 x 2 mm hypoechoic nodule in the high thyroid bed. Left lobe: Surgically absent. No residual tissue in the thyroidectomybed. 5 x 4 x 3 mm hypoechoic nodule in the mid thyroid bed. Isthmus thickness: Surgically absent. Lymph nodes: Benign appearing Right: measuring 11 x 7 x 3 mm, IJ chain, [high. IMPRESSION: 1. Status post thyroidectomy 2. Subcentimeter hypoechoic nodules in the thyroid bed bilaterally us Kim Busch MD IMG US THYROID Final Result documented in this encounter Visit Diagnoses Diagnosis Thyroid cancer Malignant neoplasm of thyroid gland Thyroid cancer Malignant neoplasm of thyroid gland documented in this encounter Additional Health Concerns Assessment Noted Time PHQ-2 Depression Total Score: 0 05/02/20 22 2:31 PM EDT documented as of this encounter Care Teams Glue Sprayer Relationship Specialty Start Date End Date Alfonso Mcmahon NP [facility] [place] [address] PCP - General Family Medicine 07/11/21 documented as of this encounter Additional Source Comments The information contained in this document represents components of the legal health record. It is not the complete legal health record.[facility]
--- OUTSIDE RECORDS SUMMARY | 2025-06-19 12:27 | XMS_ITS | Encounter Summary ---
Author Organization [facility] Address [address] [place] [address] Phone Care Team Providers Care Engagement Executive Name Role Phone Alfonso Mcmahon GUEST ROOM ATTENDANT Primary Care Provider + Encounter Details Date Type Department Care Team (Late st Contact Info) Description 07/25/2021 Ancillary Orders [facility] [address] [place] [address] Kim Busch MD [address] [place] [address] [email or web address] Thyroid nodule Social History Tobacco Use Types Packs/Day Years Used Date Smoking Tobacco: Some Days Cigarettes 0.5 23 Started: 06/22/2002 Smokeless Tobacco: Never Comments:Presently smoking o ccasional <1 day in since 06/2021. On Nicoderm patch Alcohol Use Standard Drinks/Week Comments Yes 0 (1 standard drink = 0.6 oz pur e alcohol) Rarer. 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 file Not on file documented as of this encounter Plan of Treatment Upcoming Encounters Date Type Department Care Team (Late st Contact Info) Description 04/06/2026 10:30 AM EDT Appointment [facility] [address] [place] [address] Kim Busch MD [address] [place] [phone] [email or web address] 04/06/2026 2:00 PM EDT Office Visit [facility] Endocrine, Diabetes, and Hypertension [address] [place] [address] Kim Busch MD [address] [place] [phone] [email or web address] documented as of this encounter Results * US Thyroid Gland (07/25/2021 3:44 PM EDT) Anatomical Region Laterality Modality Neck, Head, Chest Ultrasound 07/25/2021 Narrative 07/25/2021 4:40 PM EDT TESTS PERFORMED Thyroid/Neck Ultrasound ([id number]) INDICATIONS/REASONS FOR TESTS Thyroid cancer on prior biopsy FINDINGS Compared to prior scan dated CT 07/18/2021 Thyroid gland Size Right lobe: 5.4 x 1.7 x 1.7 cm Left lobe: 4.4 x 1.9 x 1.4 cm Isthmus thickness: 0.2 cm Right lobe Nodule(s) <5 mm Three or more Predominantly cystic Left lobe Nodule 1 Size: 9 x 8 x 7 mm Upper pole Solid, Coarse calcifications, Hypoechoic, Smooth margins, No internal vascularity, Peripheral vascularity Previously biopsied Nodule(s) < 5 mm Single Predominantly cystic Lymph nodes Indeterminate appearing Left 12 x 12 x 6 mm, high IJ chain 7 x 7 x 4 mm, high IJ chain 7 x 7 x 4 mm, high IJ chain 9 x 7 x 6 mm, high IJ chain 9 x 7 x 5 mm, low IJ chain Abnormal appearing Left with speckled calcifications: 12 x 9 x 5 mm, high IJ chain 13 x 8 x 4 mm, high IJ chain IMPRESSION: 1. Left thyroid nodule 2. Multiple indeterminate and abnormal appearing lymph nodes in the left neck Procedure Note Sandra Pearl MD - 07/25/2021 TESTS PERFORMED Thyroid/Neck Ultrasound ([id number]) INDICATIONS/REASONS FOR TESTS Thyroid cancer on prior biopsy FINDINGS Compared to prior scan dated CT 07/18/2021 Thyroid gland Size Right lobe: 5.4 x 1.7 x 1.7 cm Left lobe: 4.4 x 1.9 x 1.4 cm Isthmus thickness: 0.2 cm Right lobe Nodule(s) <5 mm Three or more Predominantly cystic Left lobe Nodule 1 Size: 9 x 8 x 7 mm Upper pole Solid, Coarse calcifications, Hypoechoic, Smooth margins, No internal vascularity, Peripheral vascularity Previously biopsied Nodule(s) < 5 mm Single Predominantly cystic Lymph nodes Indeterminate appearing Left 12 x 12 x 6 mm, high IJ chain 7 x 7 x 4 mm, high IJ chain 7 x 7 x 4 mm, high IJ chain 9 x 7 x 6 mm, high IJ chain 9 x 7 x 5 mm, low IJ chain Abnormal appearing Left with speckled calcifications: 12 x 9 x 5 mm, high IJ chain 13 x 8 x 4 mm, high IJ chain IMPRESSION: 1. Left thyroid nodule 2. Multiple indeterminate and abnormal appearing lymph nodes in the left neck us Kim Busch MD IMG US THYROID Final Result documented in this encounter Visit Diagnoses Diagnosis Thyroid nodule Nontoxic uninodular goiter Thyroid nodule Nontoxic uninodular goiter documented in this encounter Care Teams Engagement Executive Relationship Specialty Start Date End Date Alfonso Mcmahon NP [facility] [place] [address] PCP - General Family Medicine 07/11/21 documented as of this encounter Additional Source Comments The information contained in this document represents components of the legal health record. It is not the complete legal health record.[facility]
--- OUTSIDE RECORDS SUMMARY | 2025-06-19 12:27 | XMS_ITS | Encounter Summary ---
Author Organization [facility] Address [address] [place] [address] Phone Care Team Providers Care Pharmaceutical Sales Specialist Name Role Phone Alfonso Mcmahon BRAILLE TRANSCRIBER Primary Care Provider + Encounter Details Date Type Department Care Team (Late st Contact Info) Description 07/19/2021 Procedure Pass [facility] [address] [place] [address] Social History Tobacco Use Types Packs/Day Years [...] Industry Job Start Date Job End Date [place] Not on file Not on file Not on file documented as of this encounter Plan of Treatment Upcoming Encounters Date Type Department Care Team (Late st Contact Info) Description 04/06/2026 10:30 AM EDT Appointment [facility] [address] [place] [address] Kim Busch MD [address] [place] [address] [email or web address] 04/06/2026 2:00 PM EDT Office Visit [facility] Endocrine, Diabetes, and Hypertension [address] [place] [address] 2nd [place] [address] Kim Busch MD [address] [place] [phone] [email or web address] documented as of this encounter Visit Diagnoses Not on filedocumented in this encounter Care Teams Pharmaceutical Sales Specialist Relationship Specialty Start Date End Date Alfonso Mcmahon NP [facility] [place] [address] PCP - General Family Medicine 07/11/21 documented as of this encounter Additional Source Comments The information contained in this document represents components of the legal health record. It is not the complete legal health record.[facility]
--- OUTSIDE RECORDS SUMMARY | 2025-06-19 12:27 | XMS_ITS | Encounter Summary ---
Author Organization [facility] Address [address] [facility] [address] [place] [address] Phone Care Team Providers Care Building Operator Name Role Phone Alfonso Mcmahon PROCESSING MGR Primary Care Provider + Encounter Details Date Type Department Care Team (Late st Contact Info) Description 05/14/2023 Ancillary Orders [facility] Endocrine, Diabetes, and Hypertension [address] [address] Kim Busch MD [address] [place] [address] [email or web address] Thyroid cancer Social History Tobacco Use Types [...] Industry Job Start Date Job End Date [place] Not on file Not on file Not on file documented as of this encounter Plan of Treatment Upcoming Encounters Date Type Department Care Team (Late st Contact Info) Description 04/06/2026 10:30 AM EDT Appointment [facility] [address] [place] [address] Kim Busch MD [address] [place] [phone] [email or web address] 04/06/2026 2:00 PM EDT Office Visit [facility] Endocrine, Diabetes, and Hypertension [address] [place] [address] Kim Busch MD [address] [place] [phone] [email or web address] documented as of this encounter Results * US Thyroid Gland (05/14/2023 9:22 AM EDT) Anatomical Region Laterality Modality Neck, Head, Chest Ultrasound 05/14/2023 9:23 AM EDT Impressions 05/14/2023 11:53 AM EDT 1. Status post thyroidectomy 2. Tiny hypoechoic nodules in the thyroid bed bilaterally again seen 3. Indeterminate lymph node in the left high lateral neck, stable. Narrative 05/14/2023 11:53 AM EDT US THYROID GLAND TECHNIQUE: Thyroid/Neck Ultrasound COMPARISON: US THYROID GLAND FINDINGS: Thyroid gland: Surgically absent. Right lobe: Surgically absent. No residual tissue in the thyroidectomy bed. Hypoechoic area in the high thyroid bed measuring 3x3x1 mm. Left lobe: Surgically absent. No residual tissue in the thyroidectomy bed. Hypoechoic area in the mid thyroid bed measuring 4x3x2 mm. Lymph nodes: Benign appearing 12x8x4 mm, mid right IJ chain. Indeterminate appearing: Left measuring 93m99s5 mm, high lateral neck. Procedure Note Kim Guadalupe MD - 05/14/2023 US THYROID GLAND TECHNIQUE: Thyroid/Neck Ultrasound COMPARISON: US THYROID GLAND FINDINGS: Thyroid gland: Surgically absent. Right lobe: Surgically absent. No residual tissue in the thyroidectomybed. Hypoechoic area in the high thyroid bed measuring 3x3x1 mm. Left lobe: Surgically absent. No residual tissue in the thyroidectomybed. Hypoechoic area in the mid thyroid bed measuring 4x3x2 mm. Lymph nodes: Benign appearing 12x8x4 mm, mid right IJ chain. Indeterminate appearing: Left measuring 16h27l3 mm, high lateral neck. IMPRESSION: 1. Status post thyroidectomy 2. Tiny hypoechoic nodules in the thyroid bed bilaterally again seen 3. Indeterminate lymph node in the left high lateral neck, stable. us Kim Busch MD IMG US THYROID Final Result documented in this encounter Visit Diagnoses Diagnosis Thyroid cancer Malignant neoplasm of thyroid gland Thyroid cancer Malignant neoplasm of thyroid gland documented in this encounter Additional Health Concerns Assessment Noted Time PHQ-2 Depression Total Score: 0 05/14/20 23 9:49 AM EDT documented as of this encounter Care Teams Building Operator Relationship Specialty Start Date End Date Alfonso Mcmahon NP [employer] [facility] [place] [address] PCP - General Family Medicine 07/11/21 documented as of this encounter Additional Source Comments The information contained in this document represents components of the legal health record. It is not the complete legal health record.[facility]
--- OUTSIDE RECORDS SUMMARY | 2025-06-19 12:27 | XMS_ITS | Encounter Summary ---
Author Organization [facility] Address [address] [place] [address] Phone Care Team Providers Care Pharmacy Grad Intern Name Role Phone Alfonso Mcmahon WHITE SPOOLER Primary Care Provider + Encounter Details Date Type Department Care Team (Late st Contact Info) Description 07/18/2021 Procedure Pass [facility], [facility] [place], [place] [address] [facility] [place] [address] Social History Tobacco Use Types Packs/Day Years [...] Industry Job Start Date Job End Date [place] Not on file Not on file Not on file documented as of this encounter Plan of Treatment Upcoming Encounters Date Type Department Care Team (Late st Contact Info) Description 04/06/2026 10:30 AM EDT Appointment [facility] [address] [place] [address] Kim Busch MD [address] [place] [phone] [email or web address] 04/06/2026 2:00 PM EDT Office Visit [facility] Endocrine, Diabetes, and Hypertension [address] [facility] [address] [place] [address] Kim Busch MD [address] [place] [phone] [email or web address] documented as of this encounter Visit Diagnoses Not on filedocumented in this encounter Care Teams Pharmacy Grad Intern Relationship Specialty Start Date End Date Alfonso Mcmahon NP [address] [facility] [place] [address] PCP - General Family Medicine 07/11/21 documented as of this encounter Additional Source Comments The information contained in this document represents components of the legal health record. It is not the complete legal health record.[facility]
--- OUTSIDE RECORDS SUMMARY | 2025-06-19 12:27 | XMS_ITS | Encounter Summary ---
Author Organization [facility] Address [address] [facility] [address] [place] [address] Phone Care Team Providers Care Auto Parker Name Role Phone Alfonso Mcmahon NP Primary Care Provider + Reason for Referral * Outpatient Procedure - Closed Specialty Diagnoses / Procedures Referred By Nikolas gutierrez Referred To Contact Radiology Diagnoses Papillary carcinoma of thyroid Procedures NM SPECT/CT Single Area Single Day Kim Busch MD Phone: tel: fax: mailto:[email or web address] Referral ID Status Reason Start Date Expiration Date Visits Re quested Visits Authorized [id number] Closed 11/15/2021 11/15/2022 1 1 Encounter Details Date Type Department Care Team (Late st Contact Info) Description 11/15/2021 Ancillary Orders [facility] Endocrine, Diabetes, and Hypertension [address] [place] [address] Kim Busch MD [address] [place] [phone] [email or web address] Papillary carcinoma of thyroid Social History Tobacco Use Types Packs/Day Years [...] 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 Not on file Not on file documented as of this encounter Plan of Treatment Upcoming Encounters Date Type Department Care Team (Late st Contact Info) Description 04/06/2026 10:30 AM EDT Appointment [facility] [address] [place] [address] Kim Busch MD [address] [place] [phone] [email or web address] 04/06/2026 2:00 PM EDT Office Visit [facility] Endocrine, Diabetes, and Hypertension [address] [place] [address] Kim Busch MD [address] [place] [phone] [email or web address] documented as of this encounter Results * NM SPECT/CT Single Area Single Day (11/15/2021 10:10 AM EST) Anatomical Region Laterality Modality Nuclear Medicine 11/15/2021 10:3 6 AM EST Impressions 11/15/2021 4:29 PM EST 1. Radioiodine uptake in the thyroid bed, right greater than left, and in the region of the base of the tongue most likely represents remnant, including, lingual thyroid tissue. 2. No evidence of distant iodine-avid metastatic disease. ATTESTATION: Lesa De Leon, as teaching physician have reviewed the images, if any, for this patient's exam, and if necessary, have edited the report originally created by Andi Diallo. Narrative 11/15/2021 4:29 PM EST Reason for exam (per EHR order): * Papillary thyroid carcinoma, assess treatment response Additional clinical information obtained from the EHR: 36-year-old female. Thyroid cancer. Evaluation following radio-iodine therapy. TECHNIQUE: Radiopharmaceutical: I-131 John. Dose: 75.6 mCi administered orally on 11/11/2021. Image acquisition: Planar whole body and magnification chest views in the anterior and posterior projections. Additional views: SPECT/CT was also performed of the head and neck. COMPARISON: Thyroid ultrasound 07/25/2021. FINDINGS: Planar images: There is radioioine uptake in the thyroid bed, right greater than left. There is additional radiotracer uptake at the right base of the tongue, likely corresponding to residual lingual thyroid tissue. There is physiologic bowel radioactivity. SPECT/CT: No additional foci of uptake in the head, neck, or thorax. Procedure Note Lesa Pop MD - 11/15/2021 Reason for exam (per EHR order): * Papillary thyroid carcinoma, assesstreatment response Additional clinical information obtained from the EHR: 36-year-old female.Thyroid cancer. Evaluation following radio-iodine therapy. TECHNIQUE: Radiopharmaceutical: I-131 John. Dose: 75.6 mCi administered orally on 11/11/2021. Image acquisition: Planar whole body and magnification chest views in theanterior and posterior projections. Additional views: SPECT/CT was alsoperformed of the head and neck. COMPARISON: Thyroid ultrasound 07/25/2021. FINDINGS: Planar images: There is radioioine uptake in the thyroid bed, rightgreater than left. There is additional radiotracer uptake at the rightbase of the tongue, likely corresponding to residual lingual thyroidtissue. There is physiologic bowel radioactivity. SPECT/CT: No additional foci of uptake in the head, neck, or thorax. IMPRESSION: 1. Radioiodine uptake in the thyroid bed, right greater than left, and inthe region of the base of the tongue most likely represents remnant,including, lingual thyroid tissue. 2. No evidence of distant iodine-avid metastatic disease. ATTESTATION: I, Lesa Pop, as teaching physician have reviewed theimages, if any, for this patient's exam, and if necessary, have edited thereport originally created by Andi Diallo. us Kim Busch MD IMG NM TUMOR LOC Final Result documented in this encounter Visit Diagnoses Diagnosis Papillary carcinoma of thyroid Malignant neoplasm of thyroid gland Papillary carcinoma of thyroid Malignant neoplasm of thyroid gland documented in this encounter Additional Health Concerns Assessment Noted Time PHQ-2 Depression Total Score: 0 09/20/20 21 1:55 PM EST documented as of this encounter Care Teams Auto Parker Relationship Specialty Start Date End Date Alfonso Mcmahon NP [facility] [place] [address] PCP - General Family Medicine 07/11/21 documented as of this encounter Additional Source Comments The information contained in this document represents components of the legal health record. It is not the complete legal health record.[facility]
--- OUTSIDE RECORDS SUMMARY | 2025-06-19 12:27 | XMS_ITS | Encounter Summary ---
Author Organization [facility] Address [address] [facility] [address] [place] [phone] Phone Care Team Providers Care Reference Assistant Name Role Phone Alfonso Mcmahon ANIMAL CRUELTY INVESTIGATOR Primary Care Provider + Encounter Details Date Type Department Care Team (Late st Contact Info) Description 11/07/2022 Ancillary Orders [facility] Endocrine, Diabetes, and Hypertension [address] [address] Kim Busch MD [address] [place] [address] [email or web address] Thyroid cancer Social History Tobacco Use Types [...] 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 file Not on file documented as of this encounter Plan of Treatment Upcoming Encounters Date Type Department Care Team (Late st Contact Info) Description 04/06/2026 10:30 AM EDT Appointment [facility] [address] [place] [address] Kim Busch MD [address] [place] [phone] [email or web address] 04/06/2026 2:00 PM EDT Office Visit [facility] Endocrine, Diabetes, and Hypertension [address] [place] [address] Kim Busch MD [address] [place] [phone] [email or web address] documented as of this encounter Results * US Thyroid Gland (11/07/2022 2:53 PM EST) Anatomical Region Laterality Modality Neck, Head, Chest Ultrasound 11/07/2022 3:22 PM EST Impressions 11/07/2022 3:46 PM EST 1. Status post thyroidectomy 2. Tiny hypoechoic nodules in the thyroid bed bilaterally again seen. 3. Indeterminate lymph node in the left high lateral neck. Narrative 11/07/2022 3:46 PM EST US THYROID GLAND TECHNIQUE: Thyroid/Neck Ultrasound COMPARISON: US THYROID GLAND FINDINGS: Thyroid gland: Surgically absent. Right lobe: Surgically absent. No residual tissue in the thyroidectomy bed 3 x 3 x 1 mm hypoechoic nodule in the high thyroid bed Left lobe: Surgically absent. No residual tissue in the thyroidectomy bed. 3 x 3 x 2 mm hypoechoic nodule in the mid thyroid bed. Isthmus thickness: Surgically absent. Lymph nodes: Benign appearing Right: measuring 12x 8 x 4 mm, IJ chain, mid. Indeterminate appearing Left: measuring 11 x 9 x 6 mm, high lateral neck, indeterminate due to lack of central hilum but without suspicious features. Procedure Note Kim Guadalupe MD - 11/07/2022 US THYROID GLAND TECHNIQUE: Thyroid/Neck Ultrasound COMPARISON: US THYROID GLAND FINDINGS: Thyroid gland: Surgically absent. Right lobe: Surgically absent. No residual tissue in the thyroidectomybed 3 x 3 x 1 mm hypoechoic nodule in the high thyroid bed Left lobe: Surgically absent. No residual tissue in the thyroidectomybed. 3 x 3 x 2 mm hypoechoic nodule in the mid thyroid bed. Isthmus thickness: Surgically absent. Lymph nodes: Benign appearing Right: measuring 12x 8 x 4 mm, IJ chain, mid. Indeterminate appearing Left: measuring 11 x 9 x 6 mm, high lateral neck, indeterminate due tolack of central hilum but without suspicious features. IMPRESSION: 1. Status post thyroidectomy 2. Tiny hypoechoic nodules in the thyroid bed bilaterally again seen. 3. Indeterminate lymph node in the left high lateral neck. us Kim Busch MD IMG US THYROID Final Result documented in this encounter Visit Diagnoses Diagnosis Thyroid cancer Malignant neoplasm of thyroid gland Thyroid cancer Malignant neoplasm of thyroid gland documented in this encounter Additional Health Concerns Assessment Noted Time PHQ-2 Depression Total Score: 0 11/07/19 23 4:09 PM EST documented as of this encounter Care Teams Reference Assistant Relationship Specialty Start Date End Date Alfonso Mcmahon NP [facility] [place] [address] PCP - General Family Medicine 07/11/21 documented as of this encounter Additional Source Comments The information contained in this document represents components of the legal health record. It is not the complete legal health record.[facility]
--- OUTSIDE RECORDS SUMMARY | 2025-06-19 12:27 | XMS_ITS | Encounter Summary ---
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 Wish to be (Past 1 Month) No 08/30/2021 5:54 PM Raisa Lubin RN 2. Non-Specific Active Suicidal Thoughts (Past 1 Month) No 08/30/2021 5:54 PM Raisa Lubin RN 6. Suicidal Behavior (Lifetime) No 08/30/2021 5:54 PM Raisa Lubin RN documented as of this encounter Plan of Treatment Upcoming Encounters Date Type Department Care Team (Late st Contact Info) Description 04/06/2026 10:30 AM EDT Appointment [facility] Radiology [address] [place] [address] Kim Busch MD [address] [place] [phone] [email or web address] 04/06/2026 2:00 PM EDT Office Visit [facility] Endocrine, Diabetes, and Hypertension [address] [place] [address] Kim Busch MD [address] [place] [phone] [email or web address] documented as of this encounter Visit Diagnoses Not on filedocumented in this encounter Care Teams Information Technology Advisor Relationship Specialty Start Date End Date Alfonso Mcmahon NP [facility] [place] [address] PCP - General Family Medicine 07/11/21 documented as of this encounter Additional Source Comments The information contained in this document represents components of the legal health record. It is not the complete legal health record.[facility]
== END 2025-06-19 11:49 | disposition home or self-care (01) ==
LOC: HO.HMCC 11:25
PROVIDERS: PCP Internal Medicine; Visit Provider Internal Medicine
DX: Z00.01 Encounter for general adult medical examination with abnormal findings (principal); R06.83 Snoring; F33.1 Major depressive disorder, recurrent, moderate; R53.83 Other fatigue; R40.0 Somnolence; E03.9 Hypothyroidism, unspecified; F41.1 Generalized anxiety disorder; E78.9 Disorder of lipoprotein metabolism, unspecified

== ENCOUNTER → 2025-06-19 11:24 | Outpatient (BNVA) | payer OTHER, SELFPAY | PROVIDERS: PCP Internal Medicine; Visit Provider Internal Medicine | DX: Z00.01 Encounter for general adult medical examination with abnormal findings (principal); F41.9 Anxiety disorder, unspecified; R06.83 Snoring; R40.0 Somnolence; E03.9 Hypothyroidism, unspecified; F41.1 Generalized anxiety disorder; F33.1 Major depressive disorder, recurrent, moderate; E78.9 Disorder of lipoprotein metabolism, unspecified | CPT/HCPCS: 99212; 99396 ==

== ENCOUNTER 2025-08-20 10:02 | Outpatient (AMB) | payer OTHER, SELFPAY ==
[2025-08-20 10:13] VITALS: BP 136/90; PULSE 96; TEMP 36.9; O2SAT 97; BMI 31.4
--- NOTE | 2025-08-20 10:13 | MHC.OFFWIV ---
Intake Vital Signs 08/20/25 10:13 Height 5 ft 1 in Weight 166 lb BMI 31.4 BP 136/90 H Blood Pressure Location Rt brachial Position Sitting Pulse 96 Pulse Source Pulse Oximeter Temp 98.4 F Temp Source Oral Pulse Oximetry (%) 97 Oxygen Delivery Method Room Air Intake Visit Reasons: EP UTI Intake Note: EP complains of frequency and urgency in urination as well as increased in smelling of the urine and the color changed to more dark and cloudy for the last three days. The patient has a story of back and supra pubic pain and UTI that involved her kidney in the past. She also gives a story of resistant UTI aginst the antibiotics. Patient Tobacco Use Status: Former Tobacco user Allergies No Known Allergies Allergy (Verified 08/20/25 10:46) Do you need a note to return to daycare/school/sports/work: No HPI HPI Comments History of Present Illness Details History - The patient is a 40-year-old female presenting with symptoms suggestive of a urinary tract infection for a few days. - The patient reports frequent urination, urgency, and cloudy, strong-smelling urine. - She denies visible blood in the urine but reports suprapubic pain and lower back pain. - The patient has a history of urinary tract infections that are resistant to antibiotics, this was years ago at [facility], she needed IV antibiotics but does not recall the details and there are no records in her chart. - She also has a history of kidney stones, although the current symptoms do not resemble past kidney stone episodes. - The last urinary tract infection was in May 2024, caused by E. coli, which was susceptible to most antibiotics. Review of Systems - Genitourinary: Reports frequent urination, urgency, cloudy and strong-smelling urine, suprapubic pain, and lower back pain. Denies visible hematuria. All systems reviewed and are unremarkable except as noted in HPI Physical Exam General: Cooperative, healthy appearing, comfortable, no acute distress and well developed Orientation: Patient oriented x3 Limitations: No limitations Head: Normal to inspection Ears: Hearing grossly normal bilaterally Face and sinus: Normal facial exam Neck: Normal visual inspection and Yes full ROM Respiratory: Normal respiratory effort and able to speak in complete sentences. Skin: No rashes or lesions noted Neuro: Patient oriented x3 Back/spine: negative CVA bilaterally [facility] Medical History HPV in female Thyroid ca History of COVID-19 History of back problems Anxiety Migraine Mild scoliosis History of kidney stones History of UTI Depression Surgical History Hx of thyroidectomy No pertinent past surgical history Family History Father HTN (hypertension) Mother No problems noted. Brother No problems noted. Brother No problems noted. Son No problems noted. Son No problems noted. Sister No problems noted. Daughter No problems noted. 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 Sexual orientation: Straight/Heterosexual Gender identity: Female Cognitive needs: No Hearing needs: No Vision needs: No Female Reproductive History Menstrual Age of Menarche: 10 Physical Exam Vital Signs: Last Vital Signs Temp 98.4 F 08/20/25 10:13 Pulse 96 08/20/25 10:13 BP 136/90 H 08/20/25 10:13 Pulse Ox 97 08/20/25 10:13 Oxygen Delivery Method Room Air 08/20/25 10:13 BMI result Body Mass Index 31.4 Results AMB Urinalysis, Automated UA Leukoctes 15 Phoebe/uL Last Edit by Hillary Samaniego CMA on 08/20/25 10:58 UA Nitrite Negative Last Edit by Hillary Samaniego CMA on 08/20/25 10:58 UA Urobilinogen 0.2 mg/dL Last Edit by Hillary Samaniego CMA on 08/20/25 10:58 UA Protein 0 mg/dL Last Edit by Hillary Samaniego CMA on 08/20/25 10:58 UA pH 6.0 Last Edit by Hillary Samaniego CMA on 08/20/25 10:58 UA Blood 10 Maciej/uL Last Edit by Hillary Samaniego CMA on 08/20/25 10:58 UA Specific [place] 1.010 Last Edit by Hillary Samaniego CMA on 08/20/25 10:58 UA Ketone Negative Last Edit by Hillary Samaniego CMA on 08/20/25 10:58 UA Bilirubin 0 mg/dL Last Edit by Hillary Samaniego CMA on 08/20/25 10:58 UA Glucose 0 mg/dL Last Edit by Hillary Samaniego CMA on 08/20/25 10:58 Assessment & Plan Assessment & Plan (1) UTI (urinary tract infection): Code(s): N39.0 - Urinary tract infection, site not specified Qualifiers: Urinary tract infection type: acute cystitis Hematuria presence: with hematuria Qualified Code(s): N30.01 - Acute cystitis with hematuria Plan: Plan - A urine culture will be performed to identify the causative organism and its antibiotic susceptibility. - Empirical antibiotic treatment will be initiated based on symptoms, with adjustments made if culture results indicate resistance. - The patient is advised to monitor symptoms and seek emergency care if symptoms worsen, indicating possible antibiotic resistance. - Follow-up is planned for Sunday to review culture results and adjust treatment if necessary. Patient was informed and verbally consented to the use of an ambient scribe for clinic note documentation during this visit. Orders: Orders Urine Culture Today N39.0 - Urinary tract infection, site not specified AMB Urinalysis Automated Today Z13.9 - Encounter for screening, unspecified Medications: New cefuroxime axetil 500 mg PO Q12H 10 tabs 0RF Coding Level of Care Code Est Pt Level 3 (31282) Diagnoses Acute cystitis with hematuria N30.01 Urinary tract infection type: acute cystitis Hematuria presence: with hematuria
== END 2025-08-20 11:30 | disposition home or self-care (01) ==
PROVIDERS: PCP Internal Medicine; Visit Provider Physician Assistant
DX: N30.01 Acute cystitis with hematuria (principal); Z13.9 Encounter for screening, unspecified

== ENCOUNTER 2025-08-20 10:02 | Outpatient (REF) | payer OTHER, SELFPAY ==
--- OUTSIDE RECORDS SUMMARY | 2025-08-20 13:36 | XMS_ITS | Encounter Summary ---
Author Organization [facility] Address [address] [facility] [address] [place] [address] Phone Care Team Providers Care Raisin Washer Name Role Phone Alfonso Mcmahon ORNAMENTAL MACHINE OPERATOR Primary Care Provider + Encounter Details Date Type Department Care Team (Late st Contact Info) Description 11/07/2022 Ancillary Orders [facility] Endocrine, Diabetes, and Hypertension [address] [address] Kim Busch MD 221 [place] [address] [email or web address] Thyroid cancer Social History Tobacco Use Types Packs/Day Years Used Date Smoking Tobacco: Former Cigarettes 0.5 23.2 S tarted: 06/22/2002 Smokeless Tobacco: Never Comments:Presently [...] 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 Not on file documented as of this encounter Plan of Treatment Upcoming Encounters Date Type Department Care Team (Late st Contact Info) Description 04/06/2026 10:30 AM EDT Appointment [facility] [address] [place] [address] Kim Busch MD [address] [place] [phone] [email or web address] 04/12/2026 8:40 AM EDT Telemedicine [facility] Endocrine, Diabetes, and Hypertension [address] [place] [address] Kim Busch MD [address] [place] [phone] [email or web address] documented as of this encounter Results * [...] documented as of this encounter Care Teams Raisin Washer Relationship Specialty Start Date End Date Alfonso Mcmahon NP [address] [place] [address] [place] [address] PCP - General Family Medicine 07/11/21 documented as of this encounter Additional Source Comments The information contained in this document represents components of the legal health record. It is not the complete legal health record.[facility]
--- OUTSIDE RECORDS SUMMARY | 2025-08-20 13:36 | XMS_ITS | Encounter Summary ---
Author Organization [facility] Address [address] [facility] [address] [place] [address] Phone Care Team Providers Care Delivery Person Name Role Phone Alfonso Mcmahon MOTEL FOOD SERVICE SUPERVISOR Primary Care Provider + Encounter Details Date Type Department Care Team (Late st Contact Info) Description 05/14/2023 Ancillary Orders [facility] Endocrine, Diabetes, and Hypertension [address] [address] Kim Busch MD 221 [place] [address] [email or web address] Thyroid cancer Social History Tobacco Use Types [...] 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 [address] [place] [address] Kim Busch MD [address] [place] [phone] [email or web address] 04/12/2026 8:40 AM EDT Telemedicine [facility] Endocrine, Diabetes, and Hypertension [address] [place] [address] Kim Busch MD [address] [place] [phone] [email or web address] documented as of this encounter Results [...] right IJ chain. Indeterminate appearing: Left measuring [id number] mm, high lateral neck. Procedure Note Kim [...] right IJ chain. Indeterminate appearing: Left measuring 79z07l0 mm, high lateral neck. IMPRESSION: 1. Status [...] documented as of this encounter Care Teams Delivery Person Relationship Specialty Start Date End Date Alfonso Mcmahon NP [employer] [facility] [place] [address] PCP - General Family Medicine 07/11/21 documented as of this encounter Additional Source Comments The information contained in this document represents components of the legal health record. It is not the complete legal health record.[facility]
--- OUTSIDE RECORDS SUMMARY | 2025-08-20 13:36 | XMS_ITS | Encounter Summary ---
Author Organization [facility] Address [address] [place] [address] Phone Care Team Providers Care Breaker Machine Tender Name Role Phone Alfonso Mcmahon FINGERNAIL TECHNICIAN Primary Care Provider + Encounter Details Date Type Department Care Team (Late st Contact Info) Description 07/18/2021 Procedure Pass [facility], [facility] [place] [address] [facility] [place] [address] Social History Tobacco Use Types Packs/Day Years Used Date Smoking Tobacco: Some Days Cigarettes 0.5 23.2 Started: 06/22/2002 Smokeless Tobacco: Never Comments:Presently smoking [...] Industry Job Start Date Job End Date [employer] Not on file Not on file Not on file documented as of this encounter Plan of Treatment Upcoming Encounters Date Type Department Care Team (Late st Contact Info) Description 04/06/2026 10:30 AM EDT Appointment [facility] [address] [place] [address] Kim Busch MD [address] [place] [address] [email or web address] 04/12/2026 8:[address] [facility] Endocrine, Diabetes, and Hypertension [address] [facility] [address] [place] [address] Kim Busch MD [address] [place] [address] [email or web address] documented as of this encounter Visit Diagnoses Not on filedocumented in this encounter Care Teams Breaker Machine Tender Relationship Specialty Start Date End Date Alfonso Mcmahon NP [address] [place] [address] PCP - General Family Medicine 07/11/21 documented as of this encounter Additional Source Comments The information contained in this document represents components of the legal health record. It is not the complete legal health record.[facility]
--- OUTSIDE RECORDS SUMMARY | 2025-08-20 13:36 | XMS_ITS | Encounter Summary ---
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 Not on file documented as of this encounter Functional Status * Calculated C-SSRS Risk Score (Lifetime/Recent) Answer Date of Assessment Author No Risk Indicated 08/30/2021 5:54 PM EST Alexus Flores RN * [place] Suicide Severity Rating Scale (Screener/Recent Self-Report) Question [...] EDT Appointment [facility] [address] [place] [address] Kim Busch MD [address] [place] [phone] [email or web address] 04/12/2026 8:40 AM EDT Telemedicine [facility] Endocrine, Diabetes, and Hypertension [address] [place] [address] Kim Busch MD [address] [place] [phone] [email or web address] documented as of this encounter Visit Diagnoses Not on filedocumented in this encounter Care Teams Handbag Frames Inspector Relationship Specialty Start Date End Date Alfonso Mcmahon NP [facility] [place] [address] PCP - General Family Medicine 07/11/21 documented as of this encounter Additional Source Comments The information contained in this document represents components of the legal health record. It is not the complete legal health record.[facility]
--- OUTSIDE RECORDS SUMMARY | 2025-08-20 13:36 | XMS_ITS | Encounter Summary ---
Author Organization [facility] Address [address] [place] [address] Phone Care Team Providers Care Nursing Teacher Name Role Phone Alfonso Mcmahon LABORER PETROLEUM REFINERY Primary Care Provider + Encounter Details Date Type Department Care Team (Late st Contact Info) Description 07/19/2021 Procedure Pass [facility] [address] [place] [address] Social History Tobacco Use Types Packs/Day Years [...] Industry Job Start Date Job End Date [place] Not on file Not on file Not on file documented as of this encounter Plan of Treatment Upcoming Encounters Date Type Department Care Team (Late st Contact Info) Description 04/06/2026 10:30 AM EDT Appointment [facility] [address] [place] [address] Kim Busch MD [address] [place] [address] [email or web address] 04/12/2026 8:40 AM EDT Telemedicine [facility] Endocrine, Diabetes, and Hypertension 221 [facility] 2nd [place] [address] Kim Busch MD [address] [place] [address] [email or web address] documented as of this encounter Visit Diagnoses Not on filedocumented in this encounter Care Teams Nursing Teacher Relationship Specialty Start Date End Date Alfonso Mcmahon NP [facility] [place] [address] PCP - General Family Medicine 07/11/21 documented as of this encounter Additional Source Comments The information contained in this document represents components of the legal health record. It is not the complete legal health record.[facility]
--- OUTSIDE RECORDS SUMMARY | 2025-08-20 13:36 | XMS_ITS | Encounter Summary ---
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 Endocrine, Diabetes, and Hypertension [address] [address] Kim Busch MD [address] [place] [address] [email or web address] documented as of this encounter Results * US Thyroid Gland (07/25/2021 3:44 PM EDT) Anatomical Region Laterality Modality Neck, Head, Chest Ultrasound 07/25/2021 Narrative 07/25/2021 4:40 PM EDT TESTS PERFORMED Thyroid/Neck Ultrasound (52520) INDICATIONS/REASONS FOR TESTS Thyroid cancer on prior [...] MD - 07/25/2021 TESTS PERFORMED Thyroid/Neck Ultrasound (36964) INDICATIONS/REASONS FOR TESTS Thyroid cancer on prior [...] goiter documented in this encounter Care Teams Box Blank Machine Feeder Relationship Specialty Start Date End Date Alfonso Mcmahon NP [facility] [place] [address] PCP - General Family Medicine 07/11/21 documented as of this encounter Additional Source Comments The information contained in this document represents components of the legal health record. It is not the complete legal health record.[facility]
--- OUTSIDE RECORDS SUMMARY | 2025-08-20 13:36 | XMS_ITS | Clinical Summary ---
Author Organization [facility] Address [address] [place] [address] Phone Care Team Providers Care Diagnostic Imaging Manager Name Role Phone Alfonso Mcmahon NP Primary [...] Papillary thyroid carcinoma 08/31/2021 Thyroid cancer 08/30/2021 Encounters Date Type Department Care Team Description 07/01/2025 Telephone [facility] Endocrine, Diabetes, and Hypertension [address] [address] [place] 06/30/2025 Telephone [facility] Endocrine, Diabetes, and Hypertension [address] [facility] [address] [place] [address] [place] 06/29/2025 Telephone [facility] Endocrine, Diabetes, and Hypertension 221 [facility] [address] [place] [address] [place] from Last 3 Months Immunizations Immunization Administration Dates Next Due Influenza [...] 23.2 S tarted: 06/22/2002 Smokeless Tobacco: Never Tobacco Cessation:Counseling Given: Not Answered Comments:Presently smoking occasional <1 day in since 06/2021. On Nicoderm patch Alcohol Use Standard Drinks/Week Comments Yes 0 (1 standard drink = 0.6 oz pur e alcohol) Rarer. Special social occasion Education Answer Date Recorded Are you interested in more education? Not on jsae e 02/17/2023 Are you concerned about learning? 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 Not [...] Info) Description 04/06/2026 10:30 AM EDT Appointment [facility] 75 [place] [address] Kim Busch MD [address] [place] [phone] [email or web address] 04/12/2026 8:40 AM EDT Telemedicine [facility] Endocrine, Diabetes, and Hypertension 221 [facility] 2nd [place] [address] Kim Busch MD [address] [place] [phone] [email or web address] Health Maintenance Due Date Last Done Comments SMOKING Hx and SMOKELESS TOBACCO SCREENING 1997 HEPATITIS C SCREENING 2002 HIV ONE-TIME SCREENING (18-65 YEARS) 2002 PNEUMOCOCCAL VACCINES (0-49 years) (1 of 2 - PCV) 2003 PAP SMEAR 2005 MAMMOGRAM 2024 INFLUENZA VACCINE (#1) 2025 09/02/2021, 2017 COVID-19 VACCINE (3 - season) 2025 07/19/2021, 06/28/2021 DEPRESSION SCREENING 03/17/2026 03/17/2025 TSH [...] this topic Medical Devices Implanted Type Area White Lead Grinder Device Identifier Shelf Expiration Date Model / Serial / Lot Iud Procedures Procedure Name Priority Date/Time Associated Diagnosis Comments TSH Routine 03/17/2025 2:49 PM EDT Thyroid cancer from Last 3 Months or Most Recently Relevant to Health Maintenance Results * TSH (03/17/2025 2:49 PM EDT) TSH 0.92 0.50 - 5.70 uIU/mL [facility] Blood 03/17/2025 2:49 PM EDT 03/17/2025 2:50 PM EDT us Kim Busch MD LAB BLOOD ORDERABLES Final Resul t Performing Organization Address City/State/[facility] Co de Phone Number [facility] [address] [place] [phone] from Last 3 Months or Most Recently Relevant to Health Maintenance Insurance ROBERTO NOLAND PCP GARCIA FOX CONNECTORCARE WELLSENSE NON NSPG PCP SILVER CLARITY CONNECTORCARE WELLSENSE NON NSPG PCP SILVER CLARITY CONNECTORCARE [employer] NON NSPG PCP SILVER CLARITY CONNECTORCARE [facility] NON NSPG PCP SILVER CLARITY CONNECTORCARE [facility] NON NSPG PCP SILVER CLARITY CONNECTORCARE Advance Directives For more information, please contact: [phone] (9AM - 5PM [facility], Sunday-Sunday) Documents on File Type Date Recorded Patient Mobile Paramedical Examiner Expl anation Healthcare Proxy 09/05/2021 6:23 PM * Full Code (Latest Code Status on File) Date Activated Date Inactivated Comments 08/30/2021 5:48 PM Question Answer Comments Code Status Confirmed With: Patient Care Teams Diagnostic Imaging Manager Relationship Specialty Start Date End Date Alfonso Mcmahon NP [facility] [place] [address] PCP - General Family Medicine 07/11/21 Additional Source Comments The information contained in this document represents components of the legal health record. It is not the complete legal health record.[facility]
--- OUTSIDE RECORDS SUMMARY | 2025-08-20 13:36 | XMS_ITS | Encounter Summary ---
Author Organization [facility] Address [address] [facility] [address] [place] [address] Phone Care Team Providers Care Local Combination Truck Driver Name Role Phone Alfonso Mcmahon SIGNALS COLLECTOR/ANALYST Primary Care Provider + Encounter Details Date Type Department Care Team (Late st Contact Info) Description 05/02/2022 Ancillary Orders [facility] Endocrine, Diabetes, and Hypertension [address] [address] Kim Busch MD 221 [place] [address] [email or web address] Thyroid cancer Social History Tobacco Use [...] 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 Not on file documented as of this encounter Plan of Treatment Upcoming Encounters Date Type Department Care Team (Late st Contact Info) Description 04/06/2026 10:30 AM EDT Appointment [facility] 75 [place] [address] Kim Busch MD [address] [place] [phone] [email or web address] 04/12/2026 8:40 AM EDT Telemedicine [facility] Endocrine, Diabetes, and Hypertension [address] [place] [address] Kim Busch MD [address] [place] [phone] [email or web address] documented as of this encounter [...] documented as of this encounter Care Teams Local Combination Truck Driver Relationship Specialty Start Date End Date Alfonso Mcmahon NP [facility] [place] [address] PCP - General Family Medicine 07/11/21 documented as of this encounter Additional Source Comments The information contained in this document represents components of the legal health record. It is not the complete legal health record.[facility]
--- OUTSIDE RECORDS SUMMARY | 2025-08-20 13:36 | XMS_ITS | Encounter Summary ---
Author Organization [facility] Address [address] [facility] [address] [place] [address] Phone Care Team Providers Care Landscape Crew Member Name Role Phone Alfonso Mcmahon NP Primary Care Provider + Reason for Referral * Outpatient Procedure - Closed Specialty Diagnoses / Procedures Referred By Nikolas gutierrez Referred To Contact Radiology Diagnoses Papillary carcinoma of thyroid Procedures NM SPECT/CT Single Area Single Day Kim Busch MD Phone: tel: fax: mailto:[email or web address] Referral ID Status Reason Start Date Expiration Date Visits Re quested Visits Authorized [id number] Closed 11/15/2021 11/15/2022 1 1 Encounter Details Date Type Department Care Team (Late st Contact Info) Description 11/15/[address] [facility] Endocrine, Diabetes, and Hypertension [address] [place] [address] Kim Busch MD [address] [place] [phone] [email or web address] Papillary carcinoma of thyroid Social History Tobacco [...] 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 75 [place] [address] Kim Busch MD [address] [place] [phone] [email or web address] 04/12/2026 8:40 AM EDT Telemedicine [facility] Endocrine, Diabetes, and Hypertension [address] [place] [address] Kim Busch MD [address] [place] [phone] [email or web address] documented as of this [...] documented as of this encounter Care Teams Landscape Crew Member Relationship Specialty Start Date End Date Alfonso Mcmahon NP [address] [place] [address] [place] [address] PCP - General Family Medicine 07/11/21 documented as of this encounter Additional Source Comments The information contained in this document represents components of the legal health record. It is not the complete legal health record.[facility]
== END 2025-08-20 10:03 | disposition home or self-care (01) ==
LOC: HO.LAB 10:02
PROVIDERS: PCP Internal Medicine
DX: N30.01 Acute cystitis with hematuria (principal)
CPT/HCPCS: 81003; 87086; 87088; 87186; 99212

== ENCOUNTER → 2025-09-03 10:55 | Outpatient (REF) | payer OTHER, SELFPAY ==
--- OUTSIDE RECORDS SUMMARY | 2025-09-03 13:37 | XMS_ITS | Encounter Summary ---
Author Organization [facility] Address [address] [place] [address] Phone Care Team Providers Care Spooler Name Role Phone Alfonso Mcmahon GULLET SLITTER Primary Care Provider + Encounter Details Date Type Department Care Team (Late st Contact Info) Description 07/19/2021 Procedure Pass [facility] 75 [place] [address] Social History Tobacco Use Types Packs/Day Years [...] Job Start Date Job End Date [place] Not on file Not on file Not on file documented as of this encounter Plan of Treatment Upcoming Encounters Date Type Department Care Team (Late st Contact Info) Description 04/06/2026 10:30 AM EDT Appointment [facility] 75 [place] [address] Kim Busch MD 221 [place] [address] [email or web address] 04/12/2026 8:40 AM EDT Telemedicine [facility] Endocrine, Diabetes, and Hypertension 221 [facility] 2nd [place] [address] Kim Busch MD 221 [place] [address] [email or web address] documented as of this encounter Visit Diagnoses Not on filedocumented in this encounter Care Teams Spooler Relationship Specialty Start Date End Date Alfonso Mcmahon NP [facility] [place] [address] PCP - General Family Medicine 07/11/21 documented as of this encounter Additional Source Comments The information contained in this document represents components of the legal health record. It is not the complete legal health record.[facility]
--- OUTSIDE RECORDS SUMMARY | 2025-09-03 13:37 | XMS_ITS | Encounter Summary ---
Author Organization [facility] Address [address] [facility] [address] [place] [address] Phone Care Team Providers Care Translator Deaf Name Role Phone Alfonso Mcmahon BOTTLE HOUSE PUMPER Primary Care Provider + Encounter Details Date Type Department Care Team (Late st Contact Info) Description 11/07/2022 Ancillary Orders [facility] Endocrine, Diabetes, and Hypertension [address] [address] Kim Busch MD 221 [place] [address] [email or web address] Thyroid cancer Social History Tobacco [...] Industry Job Start Date Job End Date [place] Not on file Not on file Not on file documented as of this encounter Plan of Treatment Upcoming Encounters Date Type Department Care Team (Late st Contact Info) Description 04/06/2026 10:30 AM EDT Appointment [facility] 75 [place] [address] Kim Busch MD [address] [place] [phone] [email or web address] 04/12/2026 8:40 AM EDT Telemedicine [facility] Endocrine, Diabetes, and Hypertension [address] [place] [address] Kim Busch MD [address] [place] [phone] [email or web address] documented as [...] documented as of this encounter Care Teams Translator Deaf Relationship Specialty Start Date End Date Alfonso Mcmahon NP [address] [place] [address] [place] [address] PCP - General Family Medicine 07/11/21 documented as of this encounter Additional Source Comments The information contained in this document represents components of the legal health record. It is not the complete legal health record.[facility]
--- OUTSIDE RECORDS SUMMARY | 2025-09-03 13:37 | XMS_ITS | Encounter Summary ---
Author Organization [facility] Address [address] [place] [address] Phone Care Team Providers Care Nursing Staffing Coordinator Name Role Phone Alfonso Mcmahon SALES ADMINISTRATOR Primary Care Provider + Encounter Details Date Type Department Care Team (Late st Contact Info) Description 08/30/2021 Procedure Pass [facility] Periop 75 [place] [address] Social History Tobacco Use Types Packs/Day Years [...] Industry Job Start Date Job End Date [place] Not on file Not on file Not on file documented as of this encounter Functional Status * Calculated C-SSRS Risk Score (Lifetime/Recent) Answer Date of Assessment Author No Risk Indicated 08/30/2021 5:54 PM EST Alexus Flores RN * [place] Suicide Severity Rating Scale (Screener/Recent Self-Report) Question [...] Appointment [facility] [address] [place] [address] Kim Busch MD [address] [place] [phone] [email or web address] 04/12/2026 8:40 AM EDT Telemedicine [facility] Endocrine, Diabetes, and Hypertension [address] [place] [address] Kim Busch MD [address] [place] [phone] [email or web address] documented as of this encounter Visit Diagnoses Not on filedocumented in this encounter Care Teams Nursing Staffing Coordinator Relationship Specialty Start Date End Date Alfonso Mcmahon NP [facility] [place] [address] PCP - General Family Medicine 07/11/21 documented as of this encounter Additional Source Comments The information contained in this document represents components of the legal health record. It is not the complete legal health record.[facility]
--- OUTSIDE RECORDS SUMMARY | 2025-09-03 13:37 | XMS_ITS | Encounter Summary ---
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 file documented as of this encounter Plan of Treatment Upcoming Encounters Date Type Department Care Team (Late st Contact Info) Description 04/06/2026 10:30 AM EDT Appointment [facility] 75 [place] [address] Kim Busch MD [address] [place] [phone] [email or web address] 04/12/2026 8:40 AM EDT Telemedicine [facility] Endocrine, Diabetes, and Hypertension [address] [address] Kim Busch MD [address] [place] [address] [email or web address] documented as of this encounter Results * US Thyroid Gland (07/25/2021 3:44 PM EDT) Anatomical Region Laterality Modality Neck, Head, Chest Ultrasound 07/25/2021 Narrative 07/25/2021 4:40 PM EDT TESTS PERFORMED Thyroid/Neck Ultrasound (10226) INDICATIONS/REASONS FOR TESTS Thyroid cancer on prior [...] MD - 07/25/2021 TESTS PERFORMED Thyroid/Neck Ultrasound ([id number]) INDICATIONS/REASONS FOR TESTS Thyroid cancer on prior [...] goiter documented in this encounter Care Teams Well Puller Relationship Specialty Start Date End Date Alfonso Mcmahon NP [facility] [place] [address] PCP - General Family Medicine 07/11/21 documented as of this encounter Additional Source Comments The information contained in this document represents components of the legal health record. It is not the complete legal health record.[facility]
--- OUTSIDE RECORDS SUMMARY | 2025-09-03 13:37 | XMS_ITS | Clinical Summary ---
Author Organization [facility] Address [address] [facility] [address] [place] [address] Phone Care Team Providers Care Casing Soaker Name Role Phone Alfonso Mcmahon NP Primary [...] Type Department Care Team Description 07/01/2025 Telephone [facility] Endocrine, Diabetes, and Hypertension [address] [address] [place] 06/30/2025 Telephone [facility] Endocrine, Diabetes, and Hypertension [address] [place] [address] [place] 06/29/2025 Telephone [facility] Endocrine, Diabetes, and Hypertension 221 [facility] [address] [place] [address] [place] from Last 3 Months [...] 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 [address] [place] [address] Kim Busch MD [address] [place] [phone] [email or web address] 04/12/2026 8:40 AM EDT Telemedicine [facility] Endocrine, Diabetes, and Hypertension [address] [facility] [address] [place] [address] Kim Busch MD [address] [place] [phone] [email or web address] Maintenance Due Date Last Done Comments [...] on patient's age to complete this topic IPV VACCINES Aged Out No longer eligi ble based on patient's age to complete this topic MENINGOCOCCAL VACCINES (ACWY) Aged Out No longer eligible based on patient's age to complete this topic MENINGOCOCCAL VACCINES (B) Aged Out N o longer eligible based on patient's age to complete this topic Medical Devices Implanted Type Area Java Enterprise Architect Device Identifier Shelf Expiration Date Model / Serial / Lot Iud Procedures Procedure Name Priority Date/Time Associated Diagnosis Comments THYROID STIMULATING HORMONE (TSH) Routine 03/17/2025 2:49 PM EDT Thyroid cancer from Last 3 Months or Most Recently Relevant to Health Maintenance Results * TSH (03/17/2025 2:49 PM EDT) TSH 0.92 0.50 - 5.70 uIU/mL [facility] Blood 03/17/2025 2:49 PM EDT 03/17/2025 2:50 PM EDT us Kim Busch MD LAB BLOOD BKR ORDERABLES Final R esult Performing Organization Address City/State/[facility] Co de Phone Number [facility] [address] [place] [phone] from Last 3 Months or Most Recently Relevant to Health Maintenance Insurance [facility] NON NSPG PCP [facility] NON NSPG PCP [facility] NON NSPG PCP S[facility] WELLSENSE NON NSPG PCP SILVER CLARITY CONNECTORCARE [facility] NON NSPG PCP S[facility]VER [facility] CONNECTORCARE [facility] NON NSPG PCP [facility] CONNECTORC[facility] Advance Directives For more information, please contact: [phone] (9AM - 5PM [facility], Sunday-Sunday) Documents on File Type Date Recorded Patient Sales And Merchandising Representative Expl anation Healthcare Proxy 09/05/2021 6:23 PM * Full Code (Latest Code Status on File) Date Activated Date Inactivated Comments 08/30/2021 5:48 PM Question Answer Comments Code Status Confirmed With: Patient Care Teams Casing Soaker Relationship Specialty Start Date End Date Alfonso Mcmahon NP [facility] [place] [address] PCP - General Family Medicine 07/11/21 Additional Source Comments The information contained in this document represents components of the legal health record. It is not the complete legal health record.[facility]
--- OUTSIDE RECORDS SUMMARY | 2025-09-03 13:37 | XMS_ITS | Encounter Summary ---
Author Organization [facility] Address [address] [facility] [address] [place] [address] Phone Care Team Providers Care Senior Sql Server Dba Name Role Phone Alfonso Mcmahon OUTREACH ASSISTANT Primary Care Provider + Encounter Details Date Type Department Care Team (Late st Contact Info) Description 05/02/2022 Ancillary Orders [facility] Endocrine, Diabetes, and Hypertension [address] [address] Kim Busch MD 221 [place] [address] [email or web address] Thyroid cancer Social History Tobacco Use [...] Industry Job Start Date Job End Date [place] Not on file Not on file Not on file documented as of this encounter Plan of Treatment Upcoming Encounters Date Type Department Care Team (Late st Contact Info) Description 04/06/2026 10:30 AM EDT Appointment [facility] 75 [place] [address] Kim Busch MD [address] [place] [phone] [email or web address] 04/12/2026 8:40 AM EDT Telemedicine [facility] Endocrine, Diabetes, and Hypertension [address] [place] [place] [address] Kim Busch MD [address] [place] [phone] [email or web address] documented as of this encounter Results * [...] documented as of this encounter Care Teams Senior Sql Server Dba Relationship Specialty Start Date End Date Alfonso Mcmahon NP [facility] [place] [address] PCP - General Family Medicine 07/11/21 documented as of this encounter Additional Source Comments The information contained in this document represents components of the legal health record. It is not the complete legal health record.[facility]
--- OUTSIDE RECORDS SUMMARY | 2025-09-03 13:37 | XMS_ITS | Encounter Summary ---
Author Organization [facility] Address [address] [facility] [address] [place] [address] Phone Care Team Providers Care Cell Maker Name Role Phone Alfonso Mcmahon NP Primary Care Provider + Reason for Referral * Outpatient Procedure - Closed Specialty Diagnoses / Procedures Referred By Nikolas gutierrez Referred To Contact Radiology Diagnoses Papillary carcinoma of thyroid Procedures NM SPECT/CT Single Area Single Day Kim Busch MD Phone: tel: fax: [email or web address] Referral ID Status Reason Start Date Expiration Date Visits Re quested Visits Authorized [id number] Closed 11/15/2021 11/15/2022 1 1 Encounter Details Date Type Department Care Team (Late st Contact Info) Description 11/15/2021 Ancillary Orders [facility] Endocrine, Diabetes, and Hypertension [address] [place] [address] Kim Busch MD [address] [place] [phone] [email or web address] Papillary carcinoma of thyroid Social History Tobacco [...] 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 Not on file documented as of this encounter Plan of Treatment Upcoming Encounters Date Type Department Care Team (Late st Contact Info) Description 04/06/2026 10:30 AM EDT Appointment [facility] 75 [place] [address] Kim Busch MD [address] [place] [phone] [email or web address] 04/12/2026 8:40 AM EDT Telemedicine [facility] Endocrine, Diabetes, and Hypertension [address] [place] [address] Kim Busch MD [address] [place] [phone] [email or web address] documented as of this encounter Results [...] documented as of this encounter Care Teams Cell Maker Relationship Specialty Start Date End Date Alfonso Mcmahon NP [address] [place] [address] [place] [address] PCP - General Family Medicine 07/11/21 documented as of this encounter Additional Source Comments The information contained in this document represents components of the legal health record. It is not the complete legal health record.[facility]
--- OUTSIDE RECORDS SUMMARY | 2025-09-03 13:37 | XMS_ITS | Encounter Summary ---
Author Organization [facility] Address [address] [facility] [address] [place] [address] Phone Care Team Providers Care Youtuber Name Role Phone Alfonso Mcmahon B[employer] HANDLING PLANT OPERATOR Primary Care Provider + Encounter Details Date Type Department Care Team (Late st Contact Info) Description 05/14/2023 Ancillary Orders [facility] Endocrine, Diabetes, and Hypertension [address] [address] Kim Busch MD 221 [place] [address] [email or web address] Thyroid cancer Social History Tobacco Use [...] Industry Job Start Date Job End Date [place] Not on file Not on file Not on file documented as of this encounter Plan of Treatment Upcoming Encounters Date Type Department Care Team (Late st Contact Info) Description 04/06/2026 10:30 AM EDT Appointment [facility] 75 [place] [address] Kim Busch MD [address] [place] [phone] [email or web address] 04/12/2026 8:40 AM EDT Telemedicine [facility] Endocrine, Diabetes, and Hypertension [address] [place] [address] Kim Busch MD [address] [place] [phone] [email or web address] documented as of this encounter Results * US Thyroid Gland (05/14/2023 9:22 AM EDT) Anatomical Region Laterality Modality Neck, Head, Chest Ultrasound 05/14/2023 9:2 3 AM EDT Impressions 05/14/2023 11:53 AM EDT [...] right IJ chain. Indeterminate appearing: Left measuring [id number] mm, high lateral neck. Procedure Note Kim [...] right IJ chain. Indeterminate appearing: Left measuring [id number] mm, high lateral neck. IMPRESSION: 1. Status [...] documented as of this encounter Care Teams Youtuber Relationship Specialty Start Date End Date Alfonso Mcmahon NP [facility] [place] [address] PCP - General Family Medicine 07/11/21 documented as of this encounter Additional Source Comments The information contained in this document represents components of the legal health record. It is not the complete legal health record.[facility]
--- OUTSIDE RECORDS SUMMARY | 2025-09-03 13:37 | XMS_ITS | Encounter Summary ---
Author Organization [facility] Address [address] [place] [address] Phone Care Team Providers Care Asphalt Tamping Machine Operator Name Role Phone Alfonso Mcmahon FIELD SERVICE ENGINEER Primary Care Provider + Encounter Details Date Type Department Care Team (Late st Contact Info) Description 07/18/2021 Procedure Pass [facility] [place] [address] [facility] Floor [address] [place] [address] Social History Tobacco Use Types Packs/Day Years [...] Industry Job Start Date Job End Date [place] Not on file Not on file Not on file documented as of this encounter Plan of Treatment Upcoming Encounters Date Type Department Care Team (Late st Contact Info) Description 04/06/2026 10:30 AM EDT Appointment [facility] [address] [place] [address] Kim Busch MD 221 [place] [address] [email or web address] 04/12/2026 8:40 AM EDT Telemedicine [facility] Endocrine, Diabetes, and Hypertension [address] [facility] 2nd [place] [address] Kim Busch MD 221 [place] [address] [email or web address] documented as of this encounter Visit Diagnoses Not on filedocumented in this encounter Care Teams Asphalt Tamping Machine Operator Relationship Specialty Start Date End Date Alfonso Mcmahon NP [address] [facility] [place] [address] PCP - General Family Medicine 07/11/21 documented as of this encounter Additional Source Comments The information contained in this document represents components of the legal health record. It is not the complete legal health record.[facility]
== END ==
LOC: HO.SL 10:55
PROVIDERS: PCP Internal Medicine; Visit Provider Internal Medicine
DX: G47.33 Obstructive sleep apnea (adult) (pediatric) (principal); R06.83 Snoring; R53.83 Other fatigue; R40.0 Somnolence
CPT/HCPCS: 95806

== ENCOUNTER → 2025-09-03 11:06 | Outpatient (BNV) | payer OTHER, SELFPAY | PROVIDERS: PCP Internal Medicine; Visit Provider Internal Medicine | DX: G47.33 Obstructive sleep apnea (adult) (pediatric) (principal) | CPT/HCPCS: 95806 ==

== ENCOUNTER 2025-09-11 10:46 | Outpatient (AMB) | payer OTHER, SELFPAY ==
[2025-09-11 10:49] VITALS: BP 136/80; PULSE 93; O2SAT 98; BMI 32.1
--- NOTE | 2025-09-11 10:49 | A.OFFPC_ITS ---
Vital Signs 09/11/25 10:49 Height 5 ft 1 in Weight 170 lb BMI 32.1 BP 136/80 Blood Pressure Location Lt brachial Position Sitting Pulse 93 Pulse Source Pulse Oximeter Pulse Oximetry (%) 98 Intake Visit Reasons: 3m follow up Allergies No Known Allergies Allergy (Verified 09/11/25 10:49) Medication List - Last Reconciled 09/11/25 by Ambrosio Ash MD alprazolam 0.25 mg PO DAILY PRN 90 days bupropion HCl SR (Wellbutrin SR) 150 mg PO QAM buspirone 15 mg PO BID 30 days levonorgestrel (Mirena) intrauterine levothyroxine 75 mcg PO DAILY venlafaxine ER 150 mg PO BEDTIME 90 days Tobacco use date assessed: 06/19/25 Dental Screening Dental Screen Date: 06/19/25 HPI HPI Comments History of Present Illness Details History of Present Illness The patient is a 40 year old individual presenting for a regular 3-month follow- up appointment for medication refills. Anxiety and Depression: - The patient is managed for severe anxi ety and depression with buspirone, bupropion, and venlafaxine 150 mg. - The patient reports anxiety is well-co ntrolled. Urticaria: - The patient reports new episodes of hi ves, which have occurred twice in the last two weeks. - These episodes are not associated with racing thoughts or other overt signs of anxiety, which has been a trigger for hives in the past. - The patient reports significant prurit us with the hives. - The patient has a history of taking hy droxyzine for this condition a long time ago. Hypothyroidism: - The patient is on levothyroxine 75 mcg for hypothyroidism. - The patient has a history of thyroid c ancer, which was diagnosed around the same time as a syncopal episode in 2020. IUD Management: - The patient has an IUD that is at the 5-year lucien and is due for replacement. - The patient reports experiencing spott ing in the last year of use and recently had a period after not having one for months. - The patient plans to have the IUD repl aced every 5 years, per preference, and sees Dr. Gunn for gynecological care. Mild Obstructive Sleep Apnea: - The patient completed a sleep study on the . - The results indicated mild, positional sleep apnea, which is worse when the patient is supine. - The patient reports snoring loudly. EKG Follow-up: - An EKG performed in 2020 during a hosp italization for syncope noted a possible abnormality. - The patient inquired about this result via message, which prompted an order for a repeat EKG. we did the EKG in the office, which shows NSR, 88 BPM, non specific T wave abnormalites same as 2020, how ever in 2020 these changes were new, when she was seen in ER patient has stronge family history of CAD, father had RI in his 50s Medical History: - Anxiety, severe - Depression - Hypothyroidism - History of thyroid cancer - History of syncope in 2020 - Mild obstructive sleep apnea - History of urticaria - EKG changes Social History: - The patient reports fluctuations in we ight, describing a cycle of losing and regaining weight. - The patient typically sleeps on the st omach. - The patient uses an intrauterine devic e (IUD) for contraception. PFSH Medical History HPV in female Thyroid ca History of COVID-19 History of back problems Anxiety Migraine Mild scoliosis History of kidney stones History of UTI Depression Surgical History Hx of thyroidectomy No pertinent past surgical history Family History Father HTN (hypertension) Mother No problems noted. Brother No problems noted. Brother No problems noted. Son No problems noted. Son No problems noted. Sister No problems noted. Daughter No problems noted. 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 Sexual orientation: Straight/Heterosexual Gender identity: Female Cognitive needs: No Hearing needs: No Vision needs: No Female Reproductive History Menstrual Age of Menarche: 10 Questionnaire Thrive Questionnaire Date Thrive assessed: 01/09/25 I am a: Patient What is your living situation today?: I have a steady place to live Within the past 12 months, did the food you bought not last and you didn't have the money to get more?: Never true Within the past 12 months, did you worry whether your food would run out before you got money to buy more?: Never true Do you have trouble paying for medicines?: No Do you have trouble getting transportation to medical appointments?: No Do you have trouble paying your heating and electricity bill?: No Do you have trouble taking care of your child, family member or friend?: No Do you have trouble with day-to-day activities such as bathing, preparing meals, shopping, managing finances, etc.?: No Are you currently unemployed and looking for a job?: No Are you interested in more education?: No Please select the resources that you would like help with: None THRIVE Score: 0 MYESHA-7 AMB Questionnaire MYESHA-7 Date MYESHA - 7 assessed: 01/09/25 Source: Developed by Drs. Tulio Osborne, Sondra Downing, Ernie Wiley and colleagues, with an educational chayo from [employer]. Review of Systems Narrative Review of Systems - General: No fever no chills - Neurological: No headaches no dizziness - Ear nose throat: No sore throat no hearing difficulty no ear pain - Cardiovascular: No syncope, no chest pain, no palpitations - Gastrointestinal: No nausea vomiting or diarrhea - Endocrine: No polyuria polydipsia no heat intolerance - Genitourinary: No dysuria , no blood in urine Physical exam (Primary Care) Vital Signs: Last Vital Signs Pulse 93 09/11/25 10:49 BP 136/80 09/11/25 10:49 Pulse Ox 98 09/11/25 10:49 BMI result Body Mass Index 32.1 Tobacco/Smoking Status: Tobacco use Status Tobacco use date assessed 06/19/25 09/11/25 10:50 Patient Tobacco Use Status Former Tobacco user 09/11/25 10:50 Tobacco use type Cigarette 09/11/25 10:50 e-Cigarette/Vaping Use Never Used 09/11/25 10:50 Thrive Assessment: Date of Thrive Assessment Date Thrive assessed 01/09/25 09/11/25 10:50 Narrative Physical Exam General: No acute distress HEENT: No acute findings Neck: Supple Respiratory system: Able to talk in full sentences, no audible wheeze Cardiovascular: S1-S2 regular in rate and rhythm Gastrointestinal: No pain Extremities: No new findings SLIDE FORMING MACHINE TENDER: Alert awake oriented x3 motor intact Skin: Normal turgor, patient reports breaking out in hives occasionally, possibly related to anxiety or diet Office Procedures EKG 46572-[id number], Complete Coding Level of Care Code Est Pt Level 5 (49638) Diagnoses Hypothyroidism (acquired) E03.[address]-T wave electrocardiographic changes R94.31 Anxiety, generalized F41.1 Family history of early CAD Z82.49 Urticaria L50.9 Moderate episode of recurrent major depressive disorder F33.1 Active/Remission status: currently active Major depression episode severity: moderate Lipid disorder E78.9 Mild sleep apnea G47.30 CPT Codes EKG - CPT: 21628-[id number], Complete ([id number]) Time Spent (min) 40 Comment review old EKGs in chart, face to face, coordination of care Assessment & Plan Assessment & Plan (1) Hypothyroidism (acquired): Code(s): E03.9 - Hypothyroidism, unspecified Category: Medical (2) Nonspecific ST-T wave electrocardiographic changes: Code(s): R94.31 - Abnormal electrocardiogram [ECG] [EKG] Category: Medical (3) Anxiety, generalized: Code(s): F41.1 - Generalized anxiety disorder Category: Medical (4) Family history of early CAD: Code(s): Z82.49 - Family history of ischemic heart disease and other diseases of the circulatory system Category: Medical (5) Urticaria: Code(s): L50.9 - Urticaria, unspecified Category: Medical (6) Major depression, recurrent: Code(s): F33.9 - Major depressive disorder, recurrent, unspecified Category: Medical Qualifiers: Active/Remission status: currently active Major depression episode severity: moderate Qualified Code(s): F33.1 - Major depressive disorder, recurrent, moderate (7) Lipid disorder: Code(s): E78.9 - Disorder of lipoprotein metabolism, unspecified Category: Medical (8) Mild sleep apnea: Code(s): G47.30 - Sleep apnea, unspecified Category: Medical Plan Problem List - Anxiety - Depression - Hypothyroidism - Urticaria - Mild obstructive sleep apnea - History of thyroid cancer - Intrauterine device management - EKG changes Plan - to see Cardio for evaluation, since maddie salas History of CAD, father had RI in 50s, non sp T waves changes today in EKG, they were absent in 2014. - For urticaria, a prescription for hydroxyzine will be sent for itching. - The patient was advised to maintain a food diary to correlate hive outbreaks with potential food triggers. - For mild obstructive sleep apnea, conservative management was recommended, including weight reduction and sleeping on the side, possibly with the aid of a pillow to prevent rolling over. - Refills for the patient's current medications (buspirone, bupropion, venlafaxine, and levothyroxine) will be sent. - The patient will follow up in 3 months for medication refills. Medications: New hydroxyzine HCl 25 mg PO BID PRN 20 tabs 0RF itching 10 days Refilled alprazolam 0.25 mg PO DAILY PRN 145 tabs 0RF anxiety 90 days bupropion HCl SR (Wellbutrin SR) 150 mg PO QAM 90 tabs 0RF venlafaxine ER 150 mg PO BEDTIME 90 caps 0RF 90 days buspirone 15 mg PO BID 60 tabs 1RF 30 days
--- OUTSIDE RECORDS SUMMARY | 2025-09-11 11:30 | XMS_ITS | Clinical Summary ---
Author Organization [facility] Address [address] [facility] [address] [place] [address] Phone Care Team Providers Care Street Light Repairer Helper Name Role Phone Alfonso Mcmahon NP Primary [...] Type Department Care Team Description 07/01/2025 Telephone [facility] Endocrine, Diabetes, and Hypertension [address] [address] [place]os [place] 06/30/2025 Telephone [facility] Endocrine, Diabetes, and Hypertension [address] [facility] [place] [address] [place] 06/29/2025 Telephone [facility] Endocrine, Diabetes, and Hypertension 221 [facility] [address] [place] [address] [place]os [place] from Last 3 Months [...] 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 Not on file Not [...] Info) Description 04/06/2026 10:30 AM EDT Appointment [facility] 75 [place] [address] Kim Busch MD [address] [place] [phone] [email or web address] 04/12/2026 8:40 AM EDT Telemedicine [facility] Endocrine, Diabetes, and Hypertension 221 [facility] [address] [place] [address] Kim Busch MD [address] [place] [phone] [email or web address] Health Maintenance Due Date Last Done Comments [...] this topic Medical Devices Implanted Type Area Manager Books Device Identifier Shelf Expiration Date Model / Serial / Lot Iud Procedures Procedure Name Priority Date/Time Associated Diagnosis Comments THYROID STIMULATING HORMONE (TSH) Routine 03/17/2025 2:49 PM EDT Thyroid cancer from Last 3 Months or Most Recently Relevant to Health Maintenance Results * TSH (03/17/2025 2:49 PM EDT) TSH 0.92 0.50 - 5.70 uIU/mL [facility] Blood 03/17/2025 2:49 PM EDT 03/17/2025 2:50 PM EDT us Kim Busch MD LAB BLOOD BKR ORDERABLES Final R esult [facility] [address] [place] [phone] from Last 3 Months or Most Recently Relevant to Health Maintenance Insurance [facility] PCP GARCIA FOX CONNECTORCARE WELLSENSE NON NSPG PCP SILVER CLARITY CONNECTORCARE WELLSENSE NON NSPG PCP S[place] CONNECTORCARE WELLSENSE NON NSPG PCP S[place] CLARITY CONNECTORCARE [facility] NON NSPG PCP [place] CLARITY CONNECTORCARE [facility] [place] CLARITY CONNECTORCARE Advance Directives For more information, please contact: [phone] (9AM - 5PM 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 It is not the complete legal health record.[facility]
--- OUTSIDE RECORDS SUMMARY | 2025-09-11 11:30 | XMS_ITS | Encounter Summary ---
Author Organization [facility] Address [address] [facility] [address] [place] [address] Phone Care Team Providers Care Vocational Counselor Name Role Phone Alfonso Mcmahon CHARTERED WEALTH MANAGER Primary Care Provider + Encounter Details Date Type Department Care Team (Late st Contact Info) Description 05/14/2023 Ancillary Orders [facility] Endocrine, Diabetes, and Hypertension [address] [address] Kim Busch MD 221 [place] [address] [email or web address] Thyroid cancer Social History Tobacco [...] Industry Job Start Date Job End Date [place] Not on file Not on file Not on file documented as of this encounter Plan of Treatment Upcoming Encounters Date Type Department Care Team (Late st Contact Info) Description 04/06/2026 10:[address] [facility] 75 [place] [address] Kim Busch MD [address] [place] [phone] [email or web address] 04/12/2026 8:40 AM EDT Telemedicine [facility] Endocrine, Diabetes, and Hypertension [address] [place] [address] Kim Busch MD [address] [place] [phone] [email or web address] documented as of this [...] right IJ chain. Indeterminate appearing: Left measuring [id number] mm, high lateral neck. Procedure Note Kim [...] right IJ chain. Indeterminate appearing: Left measuring [id number] mm, high lateral neck. IMPRESSION: 1. Status [...] documented as of this encounter Care Teams Vocational Counselor Relationship Specialty Start Date End Date Alfonso Mcmahon NP [facility] [place] [address] PCP - General Family Medicine 07/11/21 documented as of this encounter Additional Source Comments The information contained in this document represents components of the legal health record. It is not the complete legal health record.[facility]
--- OUTSIDE RECORDS SUMMARY | 2025-09-11 11:30 | XMS_ITS | Encounter Summary ---
Author Organization [facility] Address [address] [place] [address] Phone Care Team Providers Care Post Graduate Intern Name Role Phone Alfonso Mcmahon HEAD SWAMPER Primary Care Provider + Encounter Details Date Type Department Care Team (Late st Contact Info) Description 07/18/2021 Procedure Pass [facility], [facility] [place], [place] [address] [facility], Floor [address]1 [place] [address] Social History Tobacco Use Types Packs/Day Years [...] Industry Job Start Date Job End Date [place] Not on file Not on file Not on file documented as of this encounter Plan of Treatment Upcoming Encounters Date Type Department Care Team (Late st Contact Info) Description 04/06/2026 10:30 AM EDT Appointment [facility] [address] [place] [address] Kim Busch MD 221 [place] [address] [email or web address] 04/12/2026 8:40 AM EDT Telemedicine [facility] Endocrine, Diabetes, and Hypertension 221 [facility] 2nd [place] [address] Kim Busch MD 221 [place] [address] [email or web address] documented as of this encounter Visit Diagnoses Not on filedocumented in this encounter Care Teams Post Graduate Intern Relationship Specialty Start Date End Date Alfonso Mcmahon NP [address] [facility] [place] [address] PCP - General Family Medicine 07/11/21 documented as of this encounter Additional Source Comments The information contained in this document represents components of the legal health record. It is not the complete legal health record.[facility]
--- OUTSIDE RECORDS SUMMARY | 2025-09-11 11:30 | XMS_ITS | Encounter Summary ---
Author Organization [facility] Address [address] [place] [address] Phone Care Team Providers Care Color Making Supervisor Name Role Phone Alfonso Mcmahon WOOD CARVING MACHINE OPERATOR Primary Care Provider + Encounter Details Date Type Department Care Team (Late st Contact Info) Description 07/19/2021 Procedure Pass [facility] 75 [place] [address] Social History Tobacco Use Types Packs/Day Years [...] Industry Job Start Date Job End Date [place] Not on file Not on file Not on file documented as of this encounter Plan of Treatment Upcoming Encounters Date Type Department Care Team (Late st Contact Info) Description 04/06/2026 10:30 AM EDT Appointment [facility] 75 [place] [address] Kim Busch MD 221 [place] [address] [email or web address] 04/12/2026 8:40 AM EDT Telemedicine [facility] Endocrine, Diabetes, and Hypertension 221 [facility] 2nd [place] [address] Kim Busch MD 221 [place] [address] [email or web address] documented as of this encounter Visit Diagnoses Not on filedocumented in this encounter Care Teams Color Making Supervisor Relationship Specialty Start Date End Date Alfonso Mcmahon NP [facility] [place] [address] PCP - General Family Medicine 07/11/21 documented as of this encounter Additional Source Comments The information contained in this document represents components of the legal health record. It is not the complete legal health record.[facility]
--- OUTSIDE RECORDS SUMMARY | 2025-09-11 11:30 | XMS_ITS | Encounter Summary ---
Author Organization [facility] Address [address] [facility] [address] [place] [address] Phone Care Team Providers Care Labview Programmer Name Role Phone Alfonso Mcmahon NP Primary Care Provider + Reason for Referral * Outpatient Procedure - Closed Specialty Diagnoses / Procedures Referred By Nikolas gutierrez Referred To Contact Radiology Diagnoses Papillary carcinoma of thyroid Procedures NM SPECT/CT Single Area Single Day Kim Busch MD Phone: tel: fax: mailto:[email or web address] Referral ID Status Reason Start Date Expiration Date Visits Re quested Visits Authorized [id number] Closed 11/15/2021 11/15/2022 1 1 Encounter Details Date Type Department Care Team (Late st Contact Info) Description 11/15/2021 Ancillary Orders [facility] Endocrine, Diabetes, and Hypertension [address] [place] [address] Kim Busch MD [address] [place] [phone] [email or web address] Papillary carcinoma of thyroid Social [...] 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 Not on file Not on file documented as of this encounter Plan of Treatment Upcoming Encounters Date Type Department Care Team (Late st Contact Info) Description 04/06/2026 10:30 AM EDT Appointment [facility] 75 [place] [address] Kim Busch MD [address] [place] [phone] [email or web address] 04/12/2026 8:40 AM EDT Telemedicine [facility] Endocrine, Diabetes, and Hypertension [address] [place] [address] Kim Busch MD [address] [place] [phone] [email or web address] documented as of this encounter Results [...] documented as of this encounter Care Teams Labview Programmer Relationship Specialty Start Date End Date Alfonso Mcmahon NP [address] [place] [address] [place] [address] PCP - General Family Medicine 07/11/21 documented as of this encounter Additional Source Comments The information contained in this document represents components of the legal health record. It is not the complete legal health record.[facility]
--- OUTSIDE RECORDS SUMMARY | 2025-09-11 11:30 | XMS_ITS | Encounter Summary ---
Author Organization [facility] Address [address] [place] [address] Phone Care Team Providers Care Zipper Joiner Name Role Phone Alfonso Mcmahon BRICK UNLOADER TENDER Primary Care Provider + Encounter Details Date Type Department Care Team (Late st Contact Info) Description 08/30/2021 Procedure Pass [facility] Periop 75 [place] [address] Social History Tobacco Use Types Packs/Day Years [...] Industry Job Start Date Job End Date [place] Not on file Not on file Not on file documented as of this encounter Functional Status * Calculated C-SSRS Risk Score (Lifetime/Recent) Answer Date of Assessment Author No Risk Indicated 08/30/2021 5:54 PM EST Alexus Flores RN * [place] Suicide Severity Rating Scale (Screener/Recent Self-Report) Question [...] Info) Description 04/06/2026 10:30 AM EDT Appointment [facility] [address] [place] [address] Kim Busch MD [address] [place] [phone] [email or web address] 04/12/2026 8:40 AM EDT Telemedicine [facility] Endocrine, Diabetes, and Hypertension [address] [place] [address] Kim Busch MD [address] [place] [phone] [email or web address] documented as of this encounter Visit Diagnoses Not on filedocumented in this encounter Care Teams Zipper Joiner Relationship Specialty Start Date End Date lAfonso Mcmahon NP [facility] [place] [address] PCP - General Family Medicine 07/11/21 documented as of this encounter Additional Source Comments The information contained in this document represents components of the legal health record. It is not the complete legal health record.[facility]
--- OUTSIDE RECORDS SUMMARY | 2025-09-11 11:30 | XMS_ITS | Encounter Summary ---
Author Organization [facility] Address [address] [facility] [address] [place] [address] Phone Care Team Providers Care Laborer Airport Maintenance Name Role Phone Alfonso Mcmahon CERTIFIED OPHTHALMIC TECHNICIAN Primary Care Provider + Encounter Details Date Type Department Care Team (Late st Contact Info) Description 05/02/2022 Ancillary Orders [facility] Endocrine, Diabetes, and Hypertension [address] [address] Kim Busch MD 221 [place] [address] [email or web address] Thyroid cancer Social History Tobacco [...] Industry Job Start Date Job End Date [place] Not on file Not on file Not on file documented as of this encounter Plan of Treatment Upcoming Encounters Date Type Department Care Team (Late st Contact Info) Description 04/06/2026 10:30 AM EDT Appointment [facility] 75 [place] [address] Kim Busch MD [address] [place] [phone] [email or web address] 04/12/2026 8:40 AM EDT Telemedicine [facility] Endocrine, Diabetes, and Hypertension [address] [place] [address] Kim Busch MD [address] [place] [phone] [email or web address] documented as of this [...] documented as of this encounter Care Teams Laborer Airport Maintenance Relationship Specialty Start Date End Date Alfonso Mcmahon NP [facility] [place] [address] PCP - General Family Medicine 07/11/21 documented as of this encounter Additional Source Comments The information contained in this document represents components of the legal health record. It is not the complete legal health record.[facility]
--- OUTSIDE RECORDS SUMMARY | 2025-09-11 11:30 | XMS_ITS | Encounter Summary ---
Author Organization [facility] Address [address] [facility] [address] [place] [address] Phone Care Team Providers Care Cyber Incident Responder Name Role Phone Alfonso Mcmahon LOCKSTITCH SLEEVE MAKER Primary Care Provider + Encounter Details Date Type Department Care Team (Late st Contact Info) Description 11/07/2022 Ancillary Orders [facility] Endocrine, Diabetes, and Hypertension [address] [address] Kim Busch MD 221 [place] [address] [email or web address] Thyroid cancer Social History Tobacco Use Types [...] Industry Job Start Date Job End Date [place] Not on file Not on file Not on file documented as of this encounter Plan of Treatment Upcoming Encounters Date Type Department Care Team (Late st Contact Info) Description 04/06/2026 10:30 AM EDT Appointment [facility] 75 [place] [address] Kim Busch MD [address] [place] [phone] [email or web address] 04/12/2026 8:40 AM EDT Telemedicine [facility] Endocrine, Diabetes, and Hypertension [address] [place] [address] Kim Busch MD [address] [place] [phone] [email or web address] documented as of this encounter Results * [...] documented as of this encounter Care Teams Cyber Incident Responder Relationship Specialty Start Date End Date Alfonso Mcmahon NP [address] [place] [address] [place] [address] PCP - General Family Medicine 07/11/21 documented as of this encounter Additional Source Comments The information contained in this document represents components of the legal health record. It is not the complete legal health record.[facility]
--- OUTSIDE RECORDS SUMMARY | 2025-09-11 11:30 | XMS_ITS | Encounter Summary ---
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 Endocrine, Diabetes, and Hypertension [address] [address] Kim Busch MD [address] [place] [phone] [email or web address] documented as of this encounter Results * US Thyroid Gland (07/25/2021 3:44 PM EDT) Anatomical Region Laterality Modality Neck, Head, Chest Ultrasound 07/25/2021 Narrative 07/25/2021 4:40 PM EDT TESTS PERFORMED Thyroid/Neck Ultrasound (53991) INDICATIONS/REASONS FOR TESTS Thyroid cancer on prior [...] MD - 07/25/2021 TESTS PERFORMED Thyroid/Neck Ultrasound (92398) INDICATIONS/REASONS FOR TESTS Thyroid cancer on prior [...] goiter documented in this encounter Care Teams Consultant Intern Relationship Specialty Start Date End Date Alfonso Mcmahon NP [facility] [place] [address] PCP - General Family Medicine 07/11/21 documented as of this encounter Additional Source Comments The information contained in this document represents components of the legal health record. It is not the complete legal health record.[facility]
== END 2025-09-11 11:34 | disposition home or self-care (01) ==
LOC: HO.HMCC 10:46
PROVIDERS: PCP Internal Medicine; Visit Provider Internal Medicine
DX: E03.9 Hypothyroidism, unspecified (principal); R94.31 Abnormal electrocardiogram [ECG] [EKG]; F41.1 Generalized anxiety disorder; Z82.49 Family history of ischemic heart disease and other diseases of the circulatory system; L50.9 Urticaria, unspecified; F33.1 Major depressive disorder, recurrent, moderate; E78.9 Disorder of lipoprotein metabolism, unspecified; G47.30 Sleep apnea, unspecified

== ENCOUNTER → 2025-09-11 10:46 | Outpatient (BNVA) | payer OTHER, SELFPAY | PROVIDERS: PCP Internal Medicine; Visit Provider Internal Medicine | DX: F33.1 Major depressive disorder, recurrent, moderate (principal); E03.9 Hypothyroidism, unspecified; R94.31 Abnormal electrocardiogram [ECG] [EKG]; F41.1 Generalized anxiety disorder; L50.9 Urticaria, unspecified; E78.9 Disorder of lipoprotein metabolism, unspecified; G47.30 Sleep apnea, unspecified; Z82.49 Family history of ischemic heart disease and other diseases of the circulatory system | CPT/HCPCS: 93005; 99212 ==